=== PATIENT | female | born 1945 | race Caucasian/White ===

== ENCOUNTER 2020-04-22 16:28 | Outpatient (REF) | payer MEDICARE, SELFPAY ==
--- NOTE | 2020-04-22 | MM_ITS ---
EXAMINATION: MM SCREENING DIGITAL BREAST TOMOSYNTHESIS, BILATERAL CLINICAL INFORMATION: Screening. Asymptomatic. The lifetime risk of breast cancer based on the Tyrer-Cuzick Model is 2%. COMPARISON: Mammography: 08/01/2018, 07/26/2017, 07/11/2016 TECHNIQUE: Digital breast tomosynthesis is performed in both the craniocaudal and mediolateral oblique views along with computer-aided detection (CAD). Synthesized 2D images are generated from the tomosynthesis. FINDINGS: There are scattered areas of fibroglandular density (ACR BI-RADS breast composition Category b). Breast tissue composition borders on predominantly fatty. Background stromal densities are stable. There are no significant masses, abnormal calcifications, or other abnormalities. The axilla and skin contours are unremarkable. No significant changes. MM/MM tomosynthesis screening BI IMPRESSION: No mammographic evidence of malignancy. ASSESSMENT: BI-RADS 1: Negative RECOMMENDATION: Routine annual mammography screening. This patient's information was entered into a reminder system with a target due date for their next mammogram.
== END 2020-04-22 16:29 | disposition home or self-care (01) ==
LOC: HO.MAMMO 16:28
DX: Z12.31 Encounter for screening mammogram for malignant neoplasm of breast (principal)
CPT/HCPCS: 77063; 77067

== ENCOUNTER 2020-07-25 06:03 | Emergency (ER) | payer MEDICARE, SELFPAY ==
[2020-07-25 06:21] VITALS: BP 177/79; PULSE 94; RESP 15; TEMP 36.6; O2SAT 99; BMI 27.4
--- NOTE | 2020-07-25 06:36 | ED.GENADULT ---
HPI - General Adult General Chief complaint: General Medical Stated complaint: Arm pain Time Seen by Provider: 07/25/20 06:26 Source: patient Mode of arrival: ambulatory Limitations: no limitations History of Present Illness HPI narrative: pt comes to the ER c/o left arm pain that started 2 days ago. Patient denies injury. Patient states the pain starts in the shoulder blade, runs on the posterior aspect of the upper forearm, then goes to the anterior aspect to the dorsum of the hand, down to the 4th and 5th fingers. Patient denies loss in strength, denies chest pain, no shortness of breath. Related Data Previous Rx's Medication Instructions Recorded hydrochlorothiazide 25 mg tablet 25 mg PO DAILY #90 tab 07/21/20 cyclobenzaprine 10 mg PO TID PRN #14 tab 07/25/20 tramadol 50 mg PO BID PRN #7 tab 07/25/20 Allergies Allergy/AdvReac Type Severity Reaction Status Date / Time No Known Allergies Allergy Unverified 02/06/20 14:45 Review of Systems Review of Systems: Constitutional : No Weight loss, No Fever, No Chills, No Night Sweats, No Fatigue, No Malaise ENT/Mouth : No Hearing loss, No Ear Pain, No Nasal Congestion, No Sinus Pain, No Hoarseness, No sore throat, No Rhinorrhea, No Swallowing Difficulty Eyes: No Eye Pain, No Swelling, No Redness, No Foreign Body, No Discharge, No Vision Changes Cardiovascular : No Chest Pain, No SOB, No Dyspnea on Exertion, No Orthopnea, No Edema, No Palpitations Respiratory : No Cough, No Sputum, No Wheezing, No Smoke Exposure, No Dyspnea Gastrointestinal : No Nausea, No Vomiting, No Diarrhea, No Constipation, No abdominal Pain, No Hematochezia, No Melena Genitourinary : no irregular bleeding, No Dysuria, No Urinary Frequency, No Hematuria, No Urinary Incontinence, No Urgency, No Flank Pain, No Urinary Flow Changes, No Hesitancy Musculoskeletal : Complaining of left shoulder blade pain, radiating towards the left arm, down to the 4th and 5th fingers on the left side Skin : No Skin Lesions, No rash Neuro : No Weakness, No Numbness, No Paresthesias, No Loss of Consciousness, No Dizziness, No Headache Psych : No Anxiety/Panic, No Depression, No SI/HI/AH/VH, No Social Issues, Heme/Lymph: No Bruising, No Bleeding,No Lymphadenopathy Endocrine : No Polyuria, No Polydipsia, No Temperature Intolerance COUNT INCLUDES THE [facility] Past Medical History Surgical History Hip joint replacement by other means Social History Social History Alcohol intake: never Smoked in Last 30 Days: No Use of substances other than those prescribed or required for medical reasons: No Advance Directives: No Advance Directives Information Provided: No Physical Exam Vital Signs: Vital Signs: Last Vital Signs Temp 97.8 F 07/25/20 06:21 Pulse 94 07/25/20 06:21 Resp 15 07/25/20 06:21 BP 177/79 H 07/25/20 06:21 Pulse Ox 99 07/25/20 06:21 Body Mass Index 27.4 Appearance: Alert. Oriented X3. No acute distress. Eyes: Pupils equal, round and reactive to light. ENT: Pharynx normal. Neck: Normal inspection. Neck supple. No lymph nodes noted. No crepitus CVS: Normal heart rate and rhythm. Pulses normal. Normal S1 and S2 Respiratory: No respiratory distress. Breath sounds normal. No Wheezing. No rales Abdomen: Soft and nontender. No rigidity. No distention. good BS x4 Back: Pain to palpation over the medial aspect of the scapula, superior aspect. Patient has strength 5/5 in both arms, patient is able to flex and extend all fingers, the wrists , elbows and shoulders. Skin: Skin warm and dry. Normal skin color. Normal skin turgor. Extremities: No lower extremity edema. No lower extremity edema. No Lacerations. No Rash Neuro: Oriented X 3. No motor deficit. No sensory deficit. Moving all extermities. No slurred speech. Course Course Course Narrative: I discussed the labs with the patient, patient's source of paresthesias and discomfort is likely secondary to an ulnar nerve entrapment at the shoulder. Patient states that she might have injured her shoulder/back a few days ago while doing back exercises at home. Patient takes celecoxib at home, states that sometimes it is not enough for pain, discussed with the patient starting muscle relaxants and tramadol but to try to avoid using tramadol, patient will follow-up with her primary care physician, she will likely need physical therapy. Stroke is not suspected at this time Medical Decision Making Lab Data Result diagrams: 07/25/20 06:48 Labs: Lab Results 07/25/20 07/25/20 Range/Units 06:48 06:49 WBC 7.8 (4.8-10.8) X10*3/uL RBC 4.57 (4.20-5.50) X10*6/uL Hgb 13.9 (12.0-16.0) g/dl Hct 41.6 (37-47) % MCV 91.0 (80-98) fL MCH 30.4 (27.0-33.0) pg MCHC 33.4 (31.0-35.0) g/dl RDW 13.5 (11.0-16.0) % Plt Count 239 (160-400) X10*3/uL MPV 9.6 (9.4-12.3) fL Immature Gran % (Auto) 0.3 (0.0-0.4) % Neut % (Auto) 54.7 (45-73) % Lymph % (Auto) 28.1 (20-40) % [place] % (Auto) 12.6 H (2-11) % Eos % (Auto) 3.3 (0-4) % Baso % (Auto) 1.0 (0-2) % Lymph # (Auto) 2.2 (1.2-4.9) X10*3/uL [place] # (Auto) 1.0 (0.1-1.2) X10*3/uL Eos # (Auto) 0.3 (0.0-0.4) X10*3/uL Baso # (Auto) 0.1 (0.0-0.2) X10*3/uL Abs Immat Gran (auto) 0.02 (0.00-0.03) X10*3/uL Absolute Neuts (auto) 4.3 (2.0-8.3) X10*3/uL Absolute Nucleated RBC 0.000 (0.0-0.012) X10*3/uL Nucleated RBC % (auto) 0.0 (0.0-0.2) /100WBC Troponin I High Sens < 3.5 (<3.5-17.0) ng/L ECG Data Attestation: I personally reviewed and interpreted this ECG as follows: (Sinus rhythm, heart rate 84, QTC 453, less than 1 mm depression in leads V4 through V6) Discharge Plan Discharge Clinical Impression: Entrapment of left ulnar nerve Patient Disposition: Home, Self-Care Instructions: Paresthesia (ED) Additional Instructions: Please be aware that the muscle relaxant cyclobenzaprine and the pain medication tramadol can make you feel very sleepy. Avoid taking it before driving, please be aware that this medications may increase the risk of falls. Avoid taking these 2 medications together. If needed, try cyclobenzaprine first. Please follow-up with your primary care physician tomorrow. If you have any worsening or new symptoms, please return to the emergency room or call 911 Prescriptions: New cyclobenzaprine 10 mg tablet 10 mg PO TID PRN (Reason: muscle spasm) Qty: 14 RF: 0 tramadol 50 mg tablet 50 mg PO BID PRN (Reason: pain) Qty: 7 RF: 0 No Action hydrochlorothiazide 25 mg tablet 25 mg PO DAILY Qty: 90 RF: 1
--- NOTE | 2020-07-25 06:48 | PC.NURSE ---
Pt a&o, no sob or chest pain. pt complaining of middle back pain radiating to lateral left shoulder. ekg completed, pt placed on monitor sinus rhythm. labs being drawn and sent.
[2020-07-25 06:56] LABS: MANUAL DIFF FLAG NO
[2020-07-25 07:00] LABS: Basophils Absolute Auto 0.1 X10*3/uL (0.0-0.2); Eosinophils Absolute Auto 0.3 X10*3/uL (0.0-0.4); Eosinophils Percent Auto 3.3 % (0-4); Hematocrit 41.6 % (37-47); Hemoglobin 13.9 g/dl (12.0-16.0); Imm Gran Abs Auto 0.02 X10*3/uL (0.00-0.03); Imm Gran Pct Auto 0.3 % (0.0-0.4); Lymphocytes Absolute Auto 2.2 X10*3/uL (1.2-4.9); Lymphocytes Percent Auto 28.1 % (20-40); Mean Corpuscular HGB Conc 33.4 g/dl (31.0-35.0); Mean Corpuscular Hemoglobin 30.4 pg (27.0-33.0); Mean Platelet Volume 9.6 fL (9.4-12.3); Monocytes Percent Auto 12.6 % (2-11); Neutrophils Absolute Auto 4.3 X10*3/uL (2.0-8.3); Neutrophils Percent Auto 54.7 % (45-73); Platelet Count 239 X10*3/uL (160-400); Red Blood Count 4.57 X10*6/uL (4.20-5.50); Red Cell Distribution Width 13.5 % (11.0-16.0); White Blood Count 7.8 X10*3/uL (4.8-10.8)
[2020-07-25 07:23] LABS: Troponin-I High Sensitivity < 3.5 ng/L (<3.5-17.0)
[2020-07-25 08:05] LABS: Anion Gap 12 (12-20); Blood Urea Nitrogen 14 mg/dL (9-16); Calcium 9.4 mg/dL (8.4-10.2); Carbon Dioxide 29 mmol/L (22-29); Chloride 99 mmol/L (96-108); Creatinine Clr Calc Pharmacy 65.7; Estimated Glomerular Filt Rate > 60; Glucose Random 105 mg/dL (60-115); Potassium 3.9 mmol/L (3.3-5.1); Sodium 136 mmol/L (135-145)
--- NOTE | 2020-07-25 08:05 | ECG_ITS ---
Test Reason : CHEST PAIN Blood Pressure : / mmHG Vent. Rate : 084 BPM Atrial Rate : 084 BPM P-R Int : 158 ms QRS Dur : 088 ms QT Int : 384 ms P-R-T Axes : 075 058 050 degrees QTc Int : 453 ms Normal sinus rhythm Cannot rule out Anterior infarct , age undetermined Nonspecific ST and T wave abnormality Abnormal ECG When compared with ECG of 28-MAY-2014 06:05, No significant change was found Referred By: Magnolia Berg Electronically Signed By:GOPI WARNER
[2020-07-25 08:15] VITALS: BP 159/70; PULSE 75; RESP 16; O2SAT 97
== END 2020-07-25 08:16 | disposition home or self-care (01) ==
LOC: HO.ED 07:04
PROVIDERS: Emergency Provider Emergency Medicine; PCP Internal Medicine
DX: G56.22 Lesion of ulnar nerve, left upper limb (principal); M79.602 Pain in left arm
CPT/HCPCS: 36415; 80048; 84484; 85025; 93005; 99283; 99284

== ENCOUNTER 2020-08-11 14:54 | Outpatient (REF) | payer MEDICARE, SELFPAY ==
--- NOTE | ~2020-08-11 | XR_ITS ---
EXAMINATION: XR CHEST CLINICAL INFORMATION: Coronary artery disease COMPARISON: Previous chest x-ray May 2014 TECHNIQUE: 2 views of the chest were obtained. FINDINGS: The cardiac and mediastinal contours are normal. The lungs are clear. There is no pleural effusion or pneumothorax. There is curvature of the thoracic spine to the right and degenerative change. XR/XR chest 2V IMPRESSION: No evidence for acute disease in the chest.
== END 2020-08-11 14:55 | disposition home or self-care (01) ==
LOC: HO.XRAY 14:54
PROVIDERS: PCP Internal Medicine; Visit Provider Internal Medicine
DX: I25.10 Atherosclerotic heart disease of native coronary artery without angina pectoris (principal)
CPT/HCPCS: 71046

== ENCOUNTER 2020-10-08 09:35 | Outpatient (REF) | payer MEDICARE, SELFPAY ==
--- NOTE | 2020-10-08 09:40 | EMG_ITS ---
Left median and ulnar motor and sensory studies were performed. Left radial sensory study was performed and paraspinal muscles were tested. Limb muscles were also tested with a needle. IMPRESSION: 1. No evidence of significant ulnar neuropathy. 2. Chronic left mid to lower cervical radiculopathy. 3. Mild to moderate left median neuropathy across carpal tunnel. MD ROMMEL Grey/RONALDL / [id number]
== END 2020-10-08 09:36 | disposition home or self-care (01) ==
LOC: HO.NEURO 09:35
PROVIDERS: Visit Provider Internal Medicine
DX: G56.22 Lesion of ulnar nerve, left upper limb (principal)
CPT/HCPCS: 95886; 95909

== ENCOUNTER 2020-10-24 07:42 | Outpatient (REF) | payer MEDICARE, SELFPAY ==
[2020-10-24 08:21] LABS: MANUAL DIFF FLAG NO
[2020-10-24 08:47] LABS: Glucose Urine UA NEG (NEG); Leukocyte Esterase Urine NEG (NEG); Nitrite Urine NEG (NEG); PH 7.5 (5.0-8.0); Specific Gravity - Urine 1.015 (1.005-1.025); Urine Blood NEG (NEG); Urine Ketones NEG (NEG); Urine Protein NEG (NEG-TRACE)
[2020-10-24 08:51] LABS: Alanine Aminotransferase 18 U/L (0-31); Albumin Level 4.3 g/dL (3.5-5.0); Alkaline Phosphatase 47 U/L (39-117); Anion Gap 13 (12-20); Aspartate Amino Transferase 22 U/L (5-31); Bilirubin Total 0.9 mg/dL (0.0-1.0); Blood Urea Nitrogen 16 mg/dL (9-16); Calcium 9.8 mg/dL (8.4-10.2); Carbon Dioxide 30 mmol/L (22-29); Chloride 102 mmol/L (96-108); Cholesterol 202 mg/dL; Estimated Glomerular Filt Rate > 60; Glucose Random 102 mg/dL (60-115); HDL Cholesterol 96 mg/dL; LDL Cholesterol Calculated 99 mg/dl; Potassium 4.2 mmol/L (3.3-5.1); Sodium 141 mmol/L (135-145); Total Protein 6.6 g/dL (6.5-8.0); Triglycerides 39 mg/dL
[2020-10-24 08:52] LABS: Basophils Absolute Auto 0.1 X10*3/uL (0.0-0.2); Eosinophils Absolute Auto 0.3 X10*3/uL (0.0-0.4); Eosinophils Percent Auto 3.6 % (0-4); Hematocrit 41.5 % (37-47); Hemoglobin 13.3 g/dl (12.0-16.0); Imm Gran Abs Auto 0.02 X10*3/uL (0.00-0.03); Imm Gran Pct Auto 0.3 % (0.0-0.4); Lymphocytes Percent Auto 28.3 % (20-40); Mean Corpuscular Hemoglobin 30.3 pg (27.0-33.0); Mean Corpuscular Volume 94.5 fL (80-98); Mean Platelet Volume 10.3 fL (9.4-12.3); Monocytes Absolute Auto 0.9 X10*3/uL (0.1-1.2); Monocytes Percent Auto 13.1 % (2-11); Neutrophils Absolute Auto 3.7 X10*3/uL (2.0-8.3); Neutrophils Percent Auto 53.7 % (45-73); Platelet Count 210 X10*3/uL (160-400); Red Blood Count 4.39 X10*6/uL (4.20-5.50); Red Cell Distribution Width 13.8 % (11.0-16.0)
[2020-10-24 08:54] LABS: Appearance Urine CLEAR; Color Urine YELLOW
[2020-10-24 09:03] LABS: RBC Urine 0 /HPF (0); Squamous Epithelial Cell Urine TRACE /LPF; WBC Urine 0-2 /HPF (0-4)
[2020-10-24 09:09] LABS: Thyroid Stimulating Hormone 1.16 uIU/mL (0.32-4.0); Vitamin D 25-OH Total 51.1 ng/mL (>30)
[2020-10-26 08:29] LABS: Folate 16.4 ng/mL (> or = 4.0); Vitamin B12 281 pg/mL (200-900)
== END 2020-10-24 07:43 | disposition home or self-care (01) ==
LOC: HO.LAB 07:42
PROVIDERS: PCP Internal Medicine; Visit Provider Internal Medicine
DX: I10 Essential (primary) hypertension (principal); E78.00 Pure hypercholesterolemia, unspecified
CPT/HCPCS: 36415; 80053; 80061; 81001; 82306; 82607; 82746; 84439; 84443; 85025

== ENCOUNTER 2020-11-20 12:39 | Outpatient (REF) | payer MEDICARE, SELFPAY ==
--- NOTE | ~2020-11-20 | MR_ITS ---
EXAMINATION: MR CERVICAL SPINE WITHOUT CONTRAST CLINICAL INFORMATION: Neuralgia and neuritis. Self-identified left finger numbness and weakness. Partial lower arm numbness. COMPARISON: Cervical spine radiograph 04/18/2016 TECHNIQUE: MRI of the cervical spine was obtained using routine sequences without contrast. FINDINGS: VERTEBRAL BODIES AND PARASPINAL SOFT TISSUES: Straightening of the normal cervical lordosis is noted. 2 mm degenerative type anterolisthesis of C3 on C4 is visualized along with minimal 1-2 mm degenerative retrolisthesis of C5 on C6. No vertebral body compression deformities are identified. Moderate multilevel endplate discogenic marrow signal changes are noted along with mild anterior endplate osteophytosis at C4-C5, C5-C6 and C6-C7. CERVICOMEDULLARY JUNCTION AND VISUALIZED POSTERIOR FOSSA: Normal. SPINAL LEVELS: C2-C3: Minimal central disc-osteophyte complex. No significant central or foraminal stenoses. C3-C4: Mild central stenosis. Mild bilateral foraminal stenoses. Findings are present in the setting of a mild posterior broad-based disc-osteophyte complex with slight focal prominence of the right uncovertebral joint disc-osteophyte component. C4-C5: Moderate bilateral foraminal stenoses. Mild central stenosis. Findings are present in the setting of a moderate posterior broad-based disc-osteophyte complex resulting in 50% bilateral foraminal narrowing. C5-C6: Marked bilateral foraminal stenoses. Moderate central stenosis. Findings are present in the setting of a moderate posterior broad-based disc-osteophyte complex with moderate-marked bilateral uncovertebral joint incorporation with 75% bilateral foraminal narrowing and partial effacement of the ventral thecal sac CSF space. No focal signal abnormality in the adjacent spinal cord. C6-C7: Moderate left foraminal stenosis. Mild-moderate right foraminal stenosis. Moderate central stenosis. Findings are present in the setting of a moderate posterior broad-based disc-osteophyte complex. Approximately 50% left foraminal narrowing is noted along with partial effacement of the ventral thecal sac CSF space. No adjacent spinal cord signal abnormality. C7-T1: Marked left facet hypertrophic changes. Mild central stenosis. Central stenosis is present on the basis of mild posterior broad-based disc-osteophyte complex. MR/MR cervical spine wo con IMPRESSION: 1. Advanced multilevel chronic spondylosis of the cervical spine. 2. C5-C6 marked bilateral foraminal stenoses with bilateral C6 nerve root impingement. 3. C6-C7 moderate left foraminal stenosis with possible left C7 nerve root impingement. 4. C4-C5 moderate bilateral foraminal stenoses with possible mild bilateral C5 nerve root impingement.
== END 2020-11-20 12:40 | disposition home or self-care (01) ==
LOC: HO.MRI 12:39
PROVIDERS: PCP Internal Medicine; Visit Provider Internal Medicine
DX: M79.2 Neuralgia and neuritis, unspecified (principal)
CPT/HCPCS: 72141

== ENCOUNTER 2021-05-26 10:56 | Outpatient (REF) | payer MEDICARE, SELFPAY ==
--- NOTE | ~2021-05-26 | MM_ITS ---
EXAMINATION: MM SCREENING DIGITAL BREAST TOMOSYNTHESIS, BILATERAL CLINICAL INFORMATION: Screening. Asymptomatic. The lifetime risk of breast cancer based on the Tyrer-Cuzick Model is 2%. COMPARISON: Mammography: 05/10/2020, 08/01/2018, 07/26/2017 TECHNIQUE: Digital breast tomosynthesis is performed in both the craniocaudal and mediolateral oblique views along with computer-aided detection (CAD). Synthesized 2D images are generated from the tomosynthesis. FINDINGS: There are scattered areas of fibroglandular density (ACR BI-RADS breast composition Category b). There are no significant masses, abnormal calcifications, or other abnormalities. Breast tissue composition borders on predominantly fatty. Background stromal densities are stable. No significant changes. MM/MM tomosynthesis screening BI IMPRESSION: No mammographic evidence of malignancy. ASSESSMENT: BI-RADS 1: Negative RECOMMENDATION: Routine annual mammography screening. This patient's information was entered into a reminder system with a target due date for their next mammogram.
== END 2021-05-26 10:57 | disposition home or self-care (01) ==
LOC: HO.MAMMO 10:56
PROVIDERS: Visit Provider Internal Medicine
DX: Z12.31 Encounter for screening mammogram for malignant neoplasm of breast (principal)
CPT/HCPCS: 77063; 77067

== ENCOUNTER 2021-07-19 07:05 | Outpatient (REF) | payer MEDICARE, SELFPAY ==
[2021-07-19 07:44] LABS: Estimated Average Glucose 117 mg/dL; Hemoglobin A1c % 5.7 %
[2021-07-19 08:03] LABS: Alanine Aminotransferase 14 U/L (0-31); Albumin Level 4.3 g/dL (3.5-5.0); Alkaline Phosphatase 59 U/L (39-117); Anion Gap 10 (12-20); Aspartate Amino Transferase 19 U/L (5-31); Bilirubin Total 0.8 mg/dL (0.0-1.0); Blood Urea Nitrogen 16 mg/dL (9-16); Calcium 10.1 mg/dL (8.4-10.2); Carbon Dioxide 32 mmol/L (22-29); Chloride 102 mmol/L (96-108); Cholesterol 185 mg/dL; Estimated Glomerular Filt Rate > 60; Glucose Random 106 mg/dL (60-115); HDL Cholesterol 85 mg/dL; LDL Cholesterol Calculated 93 mg/dl; Potassium 4.2 mmol/L (3.3-5.1); Sodium 140 mmol/L (135-145); Total Protein 6.7 g/dL (6.5-8.0); Triglycerides 37 mg/dL
== END 2021-07-19 07:06 | disposition home or self-care (01) ==
LOC: HO.LAB 07:05
PROVIDERS: PCP Internal Medicine; Visit Provider Internal Medicine
DX: E78.00 Pure hypercholesterolemia, unspecified (principal); R73.01 Impaired fasting glucose
CPT/HCPCS: 36415; 80053; 80061; 83036

== ENCOUNTER → 2021-07-22 14:51 | Outpatient (BNVA) | payer MEDICARE, SELFPAY | PROVIDERS: PCP Internal Medicine; Referring Provider Internal Medicine; Visit Provider Internal Medicine Cardiovascular Disease | DX: I25.119 Atherosclerotic heart disease of native coronary artery with unspecified angina pectoris (principal); I10 Essential (primary) hypertension; R07.1 Chest pain on breathing; E78.00 Pure hypercholesterolemia, unspecified; E78.5 Hyperlipidemia, unspecified; E66.3 Overweight; Z68.27 Body mass index [BMI] 27.0-27.9, adult; Z79.899 Other long term (current) drug therapy | CPT/HCPCS: 93005; 99202 ==

== ENCOUNTER → 2021-09-02 14:54 | Outpatient (REF) | payer MEDICARE, SELFPAY ==
--- NOTE | 2021-09-02 14:57 | CA_ITS ---
Transthoracic Echocardiogram Patient (Last, First, Middle): Verona Guthrie S Gender: Female Date of : 1945 Age: 76 Procedure Date: 09/02/2021 Procedure Type: Transthoracic Echocardiogram Location: OP Height: 162.56 cm Weight: 71.22 kg BSA: 1.76 m2 Heart Rate: bpm BP: 130 / 70 mmHg News Specialist: FIDENCIO Referring MD: Bolivar Chapman MD Carton Repairer: Bolivar Chapman MD Symptoms: I10 - Essential (primary) hypertension Study Quality: Fair ECG Rhythm: Sinus Conclusions: - 1. Normal LV systolic function with impaired relaxation filling pattern 2. Trivial aortic regurgitation 3. Normal RV systolic pressure 4. No pericardial effusion Findings Left Ventricle Normal left ventricular size, thickness, and systolic function. The visually estimated ejection fraction is between 60-65%. Spectral Doppler is indicative of an impaired relaxation filling pattern. E/E prime ratio is between 8 and 15 consistent with indeterminate filling pressures. Right Ventricle Normal right ventricular cavity size and systolic function. Atria Both atria are normal in size. There is no evidence of interatrial shunt. Aortic Valve The aortic valve structure and function is likely normal. There is no aortic valve stenosis. There is trace (trivial) aortic valve regurgitation. Mitral Valve Normal mitral valve structure and function. There is trace mitral valve regurgitation. There is no mitral valve stenosis. Pulmonic Valve The pulmonic valve was not well visualized. Tricuspid Valve Likely normal tricuspid valve structure and function. There is trace tricuspid valve regurgitation. The right ventricular systolic pressure is normal. The right ventricular systolic pressure is 9 mmHg. Normal right atrial pressure. Great Vessels All visible segments of the aorta are normal in size. The pulmonary artery was not well visualized. Venous The inferior vena cava is normal in size and collapses greater than 50% with inspiration. Pericardium/Pleural There is no evidence of pericardial effusion. Prior Study Comparison No prior study available for comparison. Measurements 2D Linear Measurements IVSd: 0.92 0.6-0.9/0.6-1.0 cm LVIDd: 3.97 3.9-5.3/4.2-5.9 cm LVIDd Index: 2.26 2.4-3.2/2.2-3.1 cm/m2 LVIDs: 2.96 2.0-3.6 cm LVPWd: 0.93 0.7-1.1 cm LA Diam: 2.80 2.7-3.8/3.0-4.0 cm LAIDs Index: 1.59 1.5-2.3 cm/m2 LV Mass: 139.53 67-162/88-224 g LV Mass Index: 79.28 43-95/49-115 g/m2 LVOT Diam: 2.00 3.0+(-)1.3 cm 2D Systolic Function EF 4C: 67.10 >55% EF 2C: 55.50 >55% EF BiP: 63.70 >55% Mitral Valve MV Pk E: 0.70 MV PK A: 0.82 MV Decel Time: 218.00 E/A: 0.90 E'Lateral: 11.40 E'Medial: 8.38 E/E' Med: 8.40 E/E' Lat: 6.20 PHT: 64.00 MVA PHT: 3.44 Decel [place]: 3.23 Aortic Valve AoV Pk Rogelio: 1.59 AoV Mn Rogelio: 1.00 AoV VTI: 0.33 AoV Pk Grad: 10.00 Aov Mn Grad: 5.00 KRISTAN Cont.VTI: 2.08 LVOT LVOT Pk Rogelio: 0.95 LVOT Mn Rogelio: 0.65 LVOT VTI: 0.22 LVOT Pk Grad: 4.00 LVOT Mn Grad: 2.00 LVOT Diam: 2.00 LVOT Area: 3.14 Diastolic Function MV Pk E: 0.70 MV Pk A: 0.82 E/A: 0.90 E'Medial: 8.38 E/E' Med: 8.40 E' Laterial: 11.40 E/E' Lat: 6.20 Right Ventricle TAPSE (mm): 26.00 TVS' Rogelio: 13.40 Tricuspid Valve TR Pk Rogelio: 1.18 TR Pk Grad: 6.00 RA Press: 3.00 RVSP: 9.00 Great Vessels Aorta Sinus of Valsalva: 3.15 2.0-3.[address] [place]: 3.05 1.7-3.4 cm Ao Asc: 2.80 2.1-3.4 cm Ao Arch: 3.20 Updated in Other Vendor System with Status of Final Bolivar Chapman MD electronically signed on 09/03/2021 8:29:09 AM with status of Final
== END ==
LOC: HO.CARD 14:54
PROVIDERS: Visit Provider Internal Medicine Cardiovascular Disease
DX: I10 Essential (primary) hypertension (principal)
CPT/HCPCS: 93306

== ENCOUNTER 2021-09-22 08:18 | Outpatient (REF) | payer MEDICARE, SELFPAY ==
[2021-09-22 09:29] LABS: Anion Gap 12 (12-20); Blood Urea Nitrogen 15 mg/dL (9-16); Calcium 10.1 mg/dL (8.4-10.2); Carbon Dioxide 31 mmol/L (22-29); Chloride 101 mmol/L (96-108); Estimated Glomerular Filt Rate > 60; Glucose Random 102 mg/dL (60-115); Sodium 140 mmol/L (135-145)
== END 2021-09-22 08:19 | disposition home or self-care (01) ==
LOC: HO.LAB 08:18
PROVIDERS: PCP Internal Medicine; Visit Provider Internal Medicine Cardiovascular Disease
DX: I10 Essential (primary) hypertension (principal); I25.119 Atherosclerotic heart disease of native coronary artery with unspecified angina pectoris
CPT/HCPCS: 36415; 80048

== ENCOUNTER → 2021-10-14 14:40 | Outpatient (BNVA) | payer MEDICARE, SELFPAY | PROVIDERS: PCP Internal Medicine; Referring Provider Internal Medicine; Visit Provider Internal Medicine Cardiovascular Disease | DX: I25.10 Atherosclerotic heart disease of native coronary artery without angina pectoris (principal); Z79.82 Long term (current) use of aspirin; Z79.899 Other long term (current) drug therapy | CPT/HCPCS: 99212 ==

== ENCOUNTER 2022-03-18 07:24 | Outpatient (REF) | payer MEDICARE, SELFPAY ==
[2022-03-18 07:43] LABS: MANUAL DIFF FLAG NO
[2022-03-18 08:20] LABS: Basophils Absolute Auto 0.1 X10*3/uL (0.0-0.2); Basophils Percent Auto 1.1 % (0-2); Eosinophils Absolute Auto 0.2 X10*3/uL (0.0-0.4); Eosinophils Percent Auto 2.6 % (0-4); Hematocrit 42.5 % (37.0-47.0); Hemoglobin 13.9 g/dl (12.0-16.0); Imm Gran Abs Auto 0.02 X10*3/uL (0.00-0.03); Imm Gran Pct Auto 0.2 % (0.0-0.4); Lymphocytes Absolute Auto 1.5 X10*3/uL (1.2-4.9); Lymphocytes Percent Auto 17.1 % (20-40); Mean Corpuscular HGB Conc 32.7 g/dl (31.0-35.0); Mean Corpuscular Hemoglobin 30.2 pg (27.0-33.0); Mean Corpuscular Volume 92.2 fL (80.0-98.0); Mean Platelet Volume 10.2 fL (9.4-12.3); Monocytes Absolute Auto 0.9 X10*3/uL (0.1-1.2); Neutrophils Absolute Auto 5.8 x10*3/uL (2.0-8.3); Platelet Count 219 X10*3/uL (160-400); Red Blood Count 4.61 X10*6/uL (4.20-5.50); Red Cell Distribution Width 13.7 % (11.0-16.0); White Blood Count 8.6 X10*3/uL (4.8-10.8)
[2022-03-18 08:29] LABS: Estimated Average Glucose 117 mg/dL; Hemoglobin A1c % 5.7 %
[2022-03-18 08:57] LABS: Alanine Aminotransferase 15 U/L (0-31); Albumin Level 4.4 g/dL (3.5-5.0); Alkaline Phosphatase 54 U/L (39-117); Anion Gap 16 (12-20); Aspartate Amino Transferase 21 U/L (5-31); Bilirubin Total 0.5 mg/dL (0.0-1.0); Blood Urea Nitrogen 19 mg/dL (9-16); Calcium 9.8 mg/dL (8.4-10.2); Carbon Dioxide 29 mmol/L (22-29); Chloride 98 mmol/L (96-108); Cholesterol 175 mg/dL; Estimated Glomerular Filt Rate > 60; Glucose Random 96 mg/dL (60-115); HDL Cholesterol 80 mg/dL; LDL Cholesterol Calculated 90 mg/dl; Sodium 139 mmol/L (135-145); Total Protein 6.7 g/dL (6.5-8.0); Triglycerides 29 mg/dL
[2022-03-18 09:07] LABS: Free T4 (Free Thyroxine) 1.06 ng/dL (0.71-1.85)
[2022-03-18 09:29] LABS: Folate 13.5 ng/mL (> or = 4.0); Vitamin B12 > 2000 pg/mL (200-900)
== END 2022-03-18 07:25 | disposition home or self-care (01) ==
LOC: HO.LAB 07:24
PROVIDERS: PCP Internal Medicine; Visit Provider Internal Medicine
DX: R73.01 Impaired fasting glucose (principal); E78.00 Pure hypercholesterolemia, unspecified
CPT/HCPCS: 36415; 80053; 80061; 82607; 82746; 83036; 84439; 84443; 85025

== ENCOUNTER → 2022-04-12 13:47 | Outpatient (BNVA) | payer MEDICARE, SELFPAY | PROVIDERS: PCP Internal Medicine; Referring Provider Internal Medicine; Visit Provider Internal Medicine Cardiovascular Disease | DX: I25.10 Atherosclerotic heart disease of native coronary artery without angina pectoris (principal) | CPT/HCPCS: 99212 ==

== ENCOUNTER 2022-06-07 08:29 | Outpatient (REF) | payer MEDICARE, SELFPAY ==
[2022-06-07 08:41] LABS: MANUAL DIFF FLAG NO
[2022-06-07 08:57] LABS: Basophils Absolute Auto 0.1 X10*3/uL (0.0-0.2); Basophils Percent Auto 1.2 % (0-2); Eosinophils Absolute Auto 0.3 X10*3/uL (0.0-0.4); Eosinophils Percent Auto 3.8 % (0-4); Hematocrit 41.7 % (37.0-47.0); Hemoglobin 13.8 g/dl (12.0-16.0); Imm Gran Abs Auto 0.02 X10*3/uL (0.00-0.03); Imm Gran Pct Auto 0.3 % (0.0-0.4); Lymphocytes Absolute Auto 2.3 X10*3/uL (1.2-4.9); Lymphocytes Percent Auto 29.7 % (20-40); Mean Corpuscular HGB Conc 33.1 g/dl (31.0-35.0); Mean Corpuscular Hemoglobin 30.3 pg (27.0-33.0); Mean Corpuscular Volume 91.4 fL (80.0-98.0); Mean Platelet Volume 9.7 fL (9.4-12.3); Monocytes Absolute Auto 0.9 X10*3/uL (0.1-1.2); Monocytes Percent Auto 12.1 % (2-11); Neutrophils Absolute Auto 4.1 x10*3/uL (2.0-8.3); Neutrophils Percent Auto 52.9 % (45-73); Platelet Count 237 X10*3/uL (160-400); Red Blood Count 4.56 X10*6/uL (4.20-5.50); Red Cell Distribution Width 13.6 % (11.0-16.0); White Blood Count 7.7 X10*3/uL (4.8-10.8)
[2022-06-07 09:23] LABS: Estimated Average Glucose 117 mg/dL; Hemoglobin A1c % 5.7 %
[2022-06-07 09:44] LABS: Alanine Aminotransferase 23 U/L (0-31); Albumin Level 4.3 g/dL (3.5-5.0); Alkaline Phosphatase 55 U/L (39-117); Anion Gap 11 (12-20); Aspartate Amino Transferase 26 U/L (5-31); Bilirubin Total 0.7 mg/dL (0.0-1.0); Blood Urea Nitrogen 18 mg/dL (9-16); Calcium 9.8 mg/dL (8.4-10.2); Carbon Dioxide 31 mmol/L (22-29); Chloride 99 mmol/L (96-108); Cholesterol 156 mg/dL; Estimated Glomerular Filt Rate > 60; Glucose Random 100 mg/dL (60-115); HDL Cholesterol 82 mg/dL; LDL Cholesterol Calculated 70 mg/dl; Sodium 137 mmol/L (135-145); Total Protein 6.6 g/dL (6.5-8.0); Triglycerides 24 mg/dL
[2022-06-07 10:00] LABS: Free T4 (Free Thyroxine) 1.06 ng/dL (0.71-1.85); Thyroid Stimulating Hormone 1.55 uIU/mL (0.32-4.0)
== END 2022-06-07 08:30 | disposition home or self-care (01) ==
LOC: HO.LAB 08:29
PROVIDERS: PCP Internal Medicine; Visit Provider Internal Medicine
DX: E78.00 Pure hypercholesterolemia, unspecified (principal); R73.01 Impaired fasting glucose
CPT/HCPCS: 36415; 80053; 80061; 83036; 84439; 84443; 85025

== ENCOUNTER 2022-06-09 09:40 | Outpatient (REF) | payer MEDICARE, SELFPAY ==
--- NOTE | ~2022-06-09 | MM_ITS ---
EXAMINATION: MM SCREENING DIGITAL BREAST TOMOSYNTHESIS, BILATERAL CLINICAL INFORMATION: Screening. Asymptomatic. The lifetime risk of breast cancer based on the Tyrer-Cuzick Model is 1.5%. COMPARISON: Mammography: May 26, 2021 and studies dating back to June 08, 2015 TECHNIQUE: Digital breast tomosynthesis is performed in both the craniocaudal and mediolateral oblique views along with computer-aided detection (CAD). Synthesized 2D images are generated from the tomosynthesis. FINDINGS: There are scattered areas of fibroglandular density (ACR BI-RADS breast composition Category b). There are no significant masses, abnormal calcifications, or other abnormalities. MM/MM tomosynthesis screening BI IMPRESSION: No significant changes from prior exam. ASSESSMENT: BI-RADS 1: Negative RECOMMENDATION: Routine annual mammography screening. This patient's information was entered into a reminder system with a target due date for their next mammogram.
== END 2022-06-09 09:41 | disposition home or self-care (01) ==
LOC: HO.MAMMO 09:40
PROVIDERS: PCP Internal Medicine; Visit Provider Internal Medicine
DX: Z12.31 Encounter for screening mammogram for malignant neoplasm of breast (principal)
CPT/HCPCS: 77063; 77067

== ENCOUNTER 2023-01-12 06:41 | Outpatient (REF) | payer MEDICARE, SELFPAY ==
[2023-01-12 06:56] LABS: MANUAL DIFF FLAG NO
[2023-01-12 07:33] LABS: Basophils Absolute Auto 0.1 X10*3/uL (0.0-0.2); Basophils Percent Auto 1.8 % (0-2); Eosinophils Absolute Auto 0.3 X10*3/uL (0.0-0.4); Eosinophils Percent Auto 4.3 % (0-4); Hematocrit 42.1 % (37.0-47.0); Hemoglobin 13.5 g/dl (12.0-16.0); Imm Gran Abs Auto 0.01 X10*3/uL (0.00-0.03); Imm Gran Pct Auto 0.1 % (0.0-0.4); Lymphocytes Absolute Auto 2.5 X10*3/uL (1.2-4.9); Lymphocytes Percent Auto 34.6 % (20-40); Mean Corpuscular HGB Conc 32.1 g/dl (31.0-35.0); Mean Corpuscular Hemoglobin 29.9 pg (27.0-33.0); Mean Corpuscular Volume 93.1 fL (80.0-98.0); Mean Platelet Volume 10.3 fL (9.4-12.3); Monocytes Absolute Auto 0.9 X10*3/uL (0.1-1.2); Neutrophils Absolute Auto 3.3 x10*3/uL (2.0-8.3); Neutrophils Percent Auto 46.2 % (45-73); Platelet Count 181 X10*3/uL (160-400); Red Blood Count 4.52 X10*6/uL (4.20-5.50); Red Cell Distribution Width 13.4 % (11.0-16.0); White Blood Count 7.2 X10*3/uL (4.8-10.8)
[2023-01-12 07:46] LABS: Estimated Average Glucose 111 mg/dL; Hemoglobin A1c % 5.5 % (<6.0)
[2023-01-12 07:55] LABS: Alanine Aminotransferase 22 U/L (0-31); Albumin Level 4.2 g/dL (3.5-5.0); Alkaline Phosphatase 54 U/L (39-117); Anion Gap 11 (12-20); Aspartate Amino Transferase 28 U/L (5-31); Bilirubin Total 0.5 mg/dL (0.0-1.0); Blood Urea Nitrogen 20 mg/dL (9-16); Calcium 9.9 mg/dL (8.4-10.2); Carbon Dioxide 30 mmol/L (22-29); Chloride 103 mmol/L (96-108); Cholesterol 149 mg/dL (<200); Estimated Glomerular Filt Rate > 60; Glucose Random 99 mg/dL (60-115); HDL Cholesterol 77 mg/dL (>40); LDL Cholesterol Calculated 67 mg/dL (<100); Potassium 4.2 mmol/L (3.3-5.1); Sodium 140 mmol/L (135-145); Total Protein 6.7 g/dL (6.5-8.0); Triglycerides 27 mg/dL (<150)
[2023-01-12 08:01] LABS: Free T4 (Free Thyroxine) 0.93 ng/dL (0.71-1.85)
== END 2023-01-12 06:42 | disposition home or self-care (01) ==
LOC: HO.LAB 06:41
PROVIDERS: PCP Internal Medicine; Visit Provider Internal Medicine
DX: E78.00 Pure hypercholesterolemia, unspecified (principal); R73.02 Impaired glucose tolerance (oral)
CPT/HCPCS: 36415; 80053; 80061; 83036; 84439; 85025

== ENCOUNTER 2023-01-16 09:32 | Outpatient (AMB) | payer MEDICARE, SELFPAY ==
[2023-01-16 09:34] VITALS: BP 136/72; PULSE 78; O2SAT 97; BMI 23.3
--- NOTE | 2023-01-16 09:34 | MHC.PC.OV ---
Vital Signs 01/16/23 09:34 Height 5 ft 4 in Weight 136 lb BMI 23.3 BP 136/72 Blood Pressure Location Lt brachial Position Sitting Pulse 78 Pulse Source Pulse Oximeter Pulse Oximetry (%) 97 Oxygen Delivery Method Room Air Intake Visit Reasons: cad Allergies No Known Allergies Allergy (Verified 01/16/23 09:35) Tobacco use date assessed: 07/08/22 Fall risk assessment: No Falls in past year Last assessed Fall Risk: 01/16/23 Dental Screening Dental Screen Date: 01/16/23 Did you have a dental visit in the last 12 months?: Yes Did you have a dental problem in the last 6 months where you did not have access to dental care?: No Was dental information given to patient?: Patient has dentist HPI cad HPI Details 77-year-old female with a history of hypercholesterolemia coronary artery disease hypertension impaired glucose tolerance insomnia last seen in June 2022. Blood work was requested. Patient is up-to-date with mammogram [facility] Medical History (Updated 07/08/22 @ 11:42 by May Santana MD) Angina pectoris COPD (chronic obstructive pulmonary disease) Coronary artery disease Hypercholesterolemia Hypertension Osteoarthritis of left knee Osteoporosis Overweight (BMI 25.0-29.9) Surgical History History of bilateral hip replacements History of carpal tunnel release of both wrists History of laparoscopic cholecystectomy Hx of tonsillectomy Family History (Updated 01/16/23 @ 09:37 by Krystal Santoyo CMA) Father Pancreatic cancer Mother CHF (congestive heart failure) Brother No problems noted. Daughter No problems noted. Daughter No problems noted. Social History Housing: House Alcohol intake: current Patient Tobacco Use Status: Never used Tobacco e-Cigarette/Vaping Use: Never Used Second Hand Smoke Exposure: No service: No Current occupational status: employed Current occupational exposures/hazards: No Cognitive needs: No Hearing needs: No Vision needs: Yes (reading glasses) Questionnaire PHQ-9 Over the last 2 weeks, how often have you been bothered by any of the following problems? 1. Little interest or pleasure in doing things: not at all 2. Feeling down, depressed, or hopeless: not at all 3. Trouble falling or staying asleep, or sleeping too much: not at all 4. Feeling tired or having little energy: not at all 5. Poor appetite or overeating: not at all 6. Feeling bad about yourself - or that you are a failure or have let yourself or your family down: not at all 7. Trouble concentrating on things, such as reading the newspaper or watching television: not at all 8. Moving or speaking so slowly that other people could have noticed. Or the opposite - being so fidgety or restless that you have been moving around a lot more than usual: not at all 9. Thoughts that you would be better off or of hurting yourself in some way: not at all Total score: 0 Depression Screening Interpretation: Negative Source: Developed by Drs. Jarrett Horton, Tiana Allen, Barrera Dewey and colleagues, with an educational maxwell from [employer]. Thrive Questionnaire Date Thrive assessed: 07/08/22 AUDIT C Alcohol Use Questionnaire (AUDIT-C) 1. How often do you have a drink containing alcohol?: Monthly or less 2. How many drinks containing alcohol do you have on a typical day when you are drinking?: 1 or 2 3. How often do you have six or more drinks on one occasion?: Never Total Score: 1 CHITO-7 AMB Questionnaire CHITO-7 Date CHITO - 7 assessed: 07/08/22 Source: Developed by Drs. Jarrett Horton, Tiana Allen, Barrera Dewey and colleagues, with an educational maxwell from [employer]. Physical exam (Primary Care) Vital Signs: Last Vital Signs Pulse 78 01/16/23 09:34 BP 136/72 01/16/23 09:34 Pulse Ox 97 01/16/23 09:34 Oxygen Delivery Method Room Air 01/16/23 09:34 BMI result Body Mass Index 23.3 Tobacco/Smoking Status: Tobacco use Status Tobacco use date assessed 07/08/22 01/16/23 09:35 Patient Tobacco Use Status Never used Tobacco 01/16/23 09:35 e-Cigarette/Vaping Use Never Used 01/16/23 09:35 PHQ-9: PHQ-9 Score PHQ-9: Total score 0 01/16/23 09:40 Depression Screening Interpretation: Negative Thrive Assessment: Date of Thrive Assessment Date Thrive assessed 07/08/22 01/16/23 09:35 Const General: alert; No acute distress Eyes Conjunctivae: conjunctivae normal Resp Auscultation: clear to auscultation bilaterally Cardio Rate: regular rate Rhythm: regular rhythm GI Inspection: Yes normal to inspection Extrem General: Yes normal to inspection and No edema Assessment and Plan Assessment & Plan (1) Impaired fasting blood sugar: Code(s): R73.01 - Impaired fasting glucose Plan: Decrease the amount of carbohydrate intake, pasta, bread, rice and potatoes are all sugar and that is aside from all the sweet stuff, remember that fruits are good but they are Sweet also. (2) Hypercholesterolemia: Code(s): E78.00 - Pure hypercholesterolemia, unspecified Plan: Avoid fried foods, chicken skin, eggs, butter margarine, pastries and meat. Be it pork or beef they have a lot of cholesterol LDL goal of less than 70 and triglyceride of less than 150. December 2022 blood work done patient is on atorvastatin 80 mg once a day (3) Coronary artery disease: Comment: September 2021 coronary CTA no significant coronary artery disease moderate stenosis LAD 50% Code(s): I25.10 - Atherosclerotic heart disease of [place] coronary artery without angina pectoris Qualifiers: Coronary Disease-Associated Artery/Lesion type: [place] artery [place] vs. transplanted heart: [place] heart Associated angina: without angina Qualified Code(s): I25.10 - Atherosclerotic heart disease of [place] coronary artery without angina pectoris Plan: Control the cholesterol, weight, blood pressure and continue with aspirin 81 mg once a day (4) Hypertension: Code(s): I10 - Essential (primary) hypertension Qualifiers: Hypertension type: essential hypertension Qualified Code(s): I10 - Essential (primary) hypertension Plan: Continue with blood pressure medication. Decrease salt intake and exercise patient is taking hydrochlorothiazide 25 mg once a day amlodipine 10 mg once a day Coding Level of Care Code Est Pt Level 4 (57911) Diagnoses Impaired fasting blood sugar R73.01 Hypercholesterolemia E78.00 Coronary artery disease I25.10 Coronary Disease-Associated Artery/Lesion type: [place] artery [place] vs. transplanted heart: [place] heart Associated angina: without angina Hypertension I10 Hypertension type: essential hypertension
== END 2023-01-16 10:09 | disposition home or self-care (01) ==
PROVIDERS: Visit Provider Internal Medicine
DX: R73.01 Impaired fasting glucose (principal); E78.00 Pure hypercholesterolemia, unspecified; I25.10 Atherosclerotic heart disease of native coronary artery without angina pectoris; I10 Essential (primary) hypertension
CPT/HCPCS: 99214

== ENCOUNTER 2023-04-04 12:13 | Outpatient (AMB) | payer MEDICARE, SELFPAY ==
[2023-04-04 12:33] VITALS: BP 152/50; PULSE 62; O2SAT 99; BMI 23.5
--- NOTE | 2023-04-04 12:33 | A.OFFPC_ITS ---
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: Not Required per policy Accompanied by: Self / Same As Patient Allergies No Known Allergies Allergy (Verified 04/04/23 12:34) Tobacco use date assessed: 07/08/22 Fall risk assessment: No Falls in past year Last assessed Fall Risk: 04/04/23 Dental Screening Dental Screen Date: 04/04/23 Did you have a dental visit in the last 12 months?: Yes Did you have a dental problem in the last 6 months where you did not have access to dental care?: No Was dental information given to patient?: Patient has dentist [facility] Medical History (Updated 07/08/22 @ 11:42 by May Santana MD) Angina pectoris COPD (chronic obstructive pulmonary disease) Overweight (BMI 25.0-29.9) Osteoarthritis of left knee Osteoporosis Hypercholesterolemia Coronary artery disease Hypertension Surgical History History of carpal tunnel release of both wrists History of laparoscopic cholecystectomy Hx of tonsillectomy History of bilateral hip replacements Family History (Updated 01/16/23 @ 09:37 by Krystal Santoyo CMA) Father Pancreatic cancer Mother CHF (congestive heart failure) Brother No problems noted. Daughter No problems noted. Daughter No problems noted. Social History Housing: House Alcohol intake: current Patient Tobacco Use Status: Never used Tobacco e-Cigarette/Vaping Use: Never Used Second Hand Smoke Exposure: No service: No Current occupational status: employed Current occupational exposures/hazards: No Cognitive needs: No Hearing needs: No Vision needs: Yes (reading glasses) Questionnaire Thrive Questionnaire Date Thrive assessed: 07/08/22 CHITO-7 AMB Questionnaire CHITO-7 Date CHITO - 7 assessed: 07/08/22 Source: Developed by Drs. Jarrett Horton, Tiana Allen, Barrera Dewey and colleagues, with an educational maxwell from [employer]. Physical exam (Primary Care) Tobacco/Smoking Status: Tobacco use Status Tobacco use date assessed 07/08/22 01/16/23 09:35 Patient Tobacco Use Status Never used Tobacco 08/28/23 09:35 e-Cigarette/Vaping Use Never Used 01/16/23 09:35 Thrive Assessment: Date of Thrive Assessment Date Thrive assessed 07/08/22 01/16/23 09:35 Coding
--- NOTE | 2023-04-04 12:35 | A.OFFVIS_ITS ---
Intake Vital Signs 3 04/04/23 12:33 Height 5 ft 4 in Weight 137 lb BMI 23.5 BP 152/50 H Blood Pressure Location Lt brachial Position Sitting Pulse 62 Pulse Source Pulse Oximeter Pulse Oximetry (%) 99 Oxygen Delivery Method Room Air Intake Visit Reasons: AWV G0438 Preschool Aide Required: No Accompanied by: Self / Same As Patient Allergies No Known Allergies Allergy (Verified 04/04/23 12:34) Medication List - Last Reconciled 04/04/23 by May Santana MD amlodipine 10 mg PO DAILY aspirin 81 mg PO DAILY atorvastatin 80 mg PO DAILY 90 days calcium carbonate-vitamin D3 600 mg-5 mcg (200 unit) (Calcium 600 + D(3)) 1 cap PO BID cholecalciferol (vitamin D3) 2,000 units PO DAILY hydrochlorothiazide 25 mg PO DAILY mecobalamin (vitamin B12) 1,000 mcg PO DAILY nitroglycerin (Nitrostat) 0.4 mg sublingual Q5M PRN vitamins A,C,B-cfnu-cnhksw 2,148 mcg-113 mg-45 mg-17.4mg (PreserVision AREDS) 1 tab PO BID HPI AWV G0438 2 HPI0 Details 77-year-old female with a history of imp aired glucose tolerance hypercholesterolemia coronary artery disease and hypertension coming in for an annual well visit. Patient's mammogram is up-to-date colonoscopy last done in 2008. Patient is up-to-date with COVID shot and flu shot PFSH Medical History (Updated 04/04/23 @ 13:14 by May Santana MD) Overweight (BMI 25.0-29.9) Angina pectoris COPD (chronic obstructive pulmonary disease) Osteoarthritis of left knee Osteoporosis Hypercholesterolemia Coronary artery disease Hypertension Surgical History History of carpal tunnel release of both wrists History of laparoscopic cholecystectomy Hx of tonsillectomy History of bilateral hip replacements Family History Father Pancreatic cancer Mother CHF (congestive heart failure) Brother No problems noted. Daughter No problems noted. Daughter No problems noted. Social History (Updated 04/04/23 @ 12:57 by May Santana MD) Housing: House Alcohol intake: current Patient Tobacco Use Status: Never used Tobacco e-Cigarette/Vaping Use: Never Used Second Hand Smoke Exposure: No service: No Current occupational status: employed Current occupational exposures/hazards: No Cognitive needs: No Hearing needs: No Vision needs: Yes (reading glasses) Questionnaire Medicare Wellness Checkup [age] What gender do you identify with?: female During the past 4 weeks, how much have you been bothered by emotional problems such as feeling anxious, depressed, irritable, sad or downhearted, and blue?: n ot at all During the past 4 weeks, has your physical & emotional health limited your social activities with family, friends, neighbors, or groups?: not at all During the past 4 weeks, how much bodily pain have you generally had?: very mild pain During the past 4 weeks, was someone available to help you if you needed & wanted help?: no, not at all During the past 4 weeks, what was the hardest physical activity you could do for at least 2 minutes?: heavy Can you get to places out of walking distance without help? (For eg., can you travel alone on buses, taxis or drive your car?): Yes Can you go shopping for groceries or clothes without someone's help?: Yes Can you prepare your own meals?: Yes Can you do your housework without help?: Yes Because of any health problems, do you need the help of another person with your personal care needs such as eating, bathing, dressing or getting around the house?: No Can you handle your own money without help?: Yes During the past 4 weeks, how would you rate your health in general?: very good During the past 4 weeks how have things been going for you?: pretty well Are you having difficulties driving your car?: no Do you always fasten your seat belt when you are in a car?: yes, usually During past 4 weeks, have you been bothered by the following: never: Falling or dizzy when standing up, Sexual problems?, Trouble eating well?, Teeth or denture problems? and Problems using the telephone? and seldom: Tiredness or fatigue? Have you fallen 2 or more times in the past year?: No Are you afraid of falling?: No Are you a smoker?: no During the past 4 weeks, how many drinks of wine, beer, or other alcoholic beverages did you have?: no alcohol at all Do you exercise for about 20 minutes 3 or more times a week?: yes, all the time Have you been given information to help with the following?: no: Hazards in your house that might hurt you? and no: Keeping track of your medications? How often do you have trouble taking medicines the way you have been told to take them?: I always take medicine as prescribed How confident are you that you can control & manage most of your health problems?: very confident What is your race?: White PHQ-9 Over the last 2 weeks, how often have you been bothered by any of the following problems? 1. Little interest or pleasure in doing things: not at all 2. Feeling down, depressed, or hopeless: not at all 3. Trouble falling or staying asleep, or sleeping too much: not at all 4. Feeling tired or having little energy: not at all 5. Poor appetite or overeating: not at all 6. Feeling bad about yourself - or that you are a failure or have let yourself or your family down: not at all 7. Trouble concentrating on things, such as reading the newspaper or watching television: not at all 8. Moving or speaking so slowly that other people could have noticed. Or the opposite - being so fidgety or restless that you have been moving around a lot more than usual: not at all 9. Thoughts that you would be better off or of hurting yourself in some way: not at all Total score: 0 Depression Screening Interpretation: Negative Depression Screening Done: Yes Source: Developed by Drs. Jarrett Horton, Tiana Allen, Barrera Dewey and colleagues, with an educational maxwell from [employer]. Review of Systems Const Denies poor appetite and Denies weakness Eyes Denies no additional complaints ENT Reports Normal hearing present, Denies dizziness, Denies nasal congestion, Denies tinnitus and Denies sore throat Card Denies chest pain, Denies syncope, Denies rapid heart rate and Denies dyspnea Resp Denies cough and Denies dyspnea GI Denies change in stool character, Reports constipation, Denies diarrhea, Denies nausea and Denies vomiting Denies urinary frequency, Denies difficulty voiding and Denies dysuria Neuro Reports Normal hearing present, Denies confusion, Denies dizziness, Denies syncope and Denies weakness Psych Denies confusion Physical Exam Vital Signs: Last Vital Signs Pulse 62 04/04/23 12:33 BP 152/50 H 04/04/23 12:33 Pulse Ox 99 04/04/23 12:33 Oxygen Delivery Method Room Air 04/04/23 12:33 BMI result Body Mass Index 23.5 Const General: No confusion Orientation/consciousness: No confusion HEENT Other: R impacted cerumen Head: Yes normocephalic Head images: 2 1. 3 by 3 inch hematoma Ears: external ears normal Face and sinus: Yes normal facial exam Mouth: moist mucous membranes Throat: Yes tonsils normal Eyes Conjunctivae: conjunctivae normal Pupils: Equal, round and reactive pupils present and Pupil accommodation reflex normal Direct Ophthalmoscopy: normal light reflex Neck Neck: No lymphadenopathy Thyroid: Thyroid normal Chest Chest palpation & inspection: normal inspection of the chest Resp Effort & Inspection: normal respiratory effort and no audible wheezes Auscultation: clear to auscultation bilaterally, no crackles, no wheezes and lung sounds not diminished Cardio Rate: regular rate Rhythm: regular rhythm Peripheral pulses: radial pulses present and dorsalis pedis present GI Other: guaiac negative Palpation (GI): no masses Auscultation: normal bowel sounds and normoactive bowel sounds Skin General skin exam: no rashes or lesions noted Rashes: no rashes Neuro General: No confusion Cranial nerves: Yes Equal, round and reactive pupils present and Yes Normal hearing present Cognition (Neuro): normal cognition Gait exam (Neuro): Normal gait present Motor exam (neuro): 5/5 motor strength present throughout Deep tendon reflexes (DTR's): Right brachioradialis reflex intensity grade: 2+, Left brachioradialis reflex intensity grade: 2+, Right patellar reflex intensity grade: 2+ and Left patellar reflex intensity grade: 2+ Extrem General: No edema Assessment & Plan Assessment & Plan (1) Medicare annual wellness visit, subsequent: Code(s): Z00.00 - Encounter for general adult medical examination without abnormal findings (2) Coronary artery disease: Comment: September 2021 coronary CTA no significant coronary artery disease moderate stenosis LAD 50% Code(s): I25.10 - Atherosclerotic heart disease of [place] coronary artery without angina pectoris Qualifiers: Coronary Disease-Associated Artery/Lesion type: [place] artery [place] vs. transplanted heart: [place] heart Associated angina: without angina Qualified Code(s): I25.10 - Atherosclerotic heart disease of [place] coronary artery without angina pectoris (3) Hypertension: Code(s): I10 - Essential (primary) hypertension Qualifiers: Hypertension type: essential hypertension Qualified Code(s): I10 - Essential (primary) hypertension (4) Hypercholesterolemia: Code(s): E78.00 - Pure hypercholesterolemia, unspecified (5) Impacted cerumen of right ear: Code(s): H61.21 - Impacted cerumen, right ear Plan: will schedule for ear irrigation Quality Reporting (2019) Depression/Bipolar (159/160/161/177) PHQ-9: Total score: 0 Coding Level of Care Code Medicare Subsequent (G0439) Diagnoses Medicare annual wellness visit, subsequent Z00.00 Coronary artery disease involving [place] coronary artery of [place] heart without angina pectoris I25.10 Coronary Disease-Associated Artery/Lesion type: [place] artery [place] vs. transplanted heart: [place] heart Associated angina: without angina Essential hypertension I10 Hypertension type: essential hypertension Hypercholesterolemia E78.00 Impacted cerumen of right ear H61.21
== END 2023-04-04 13:21 | disposition home or self-care (01) ==
PROVIDERS: PCP Internal Medicine; Visit Provider Internal Medicine
DX: Z00.00 Encounter for general adult medical examination without abnormal findings (principal); I25.10 Atherosclerotic heart disease of native coronary artery without angina pectoris; I10 Essential (primary) hypertension; E78.00 Pure hypercholesterolemia, unspecified; H61.21 Impacted cerumen, right ear
CPT/HCPCS: G0439

== ENCOUNTER 2023-04-10 15:48 | Outpatient (AMB) | payer MEDICARE, SELFPAY ==
[2023-04-10 15:51] VITALS: BP 160/70; PULSE 66; O2SAT 98; BMI 23.5
--- NOTE | 2023-04-10 15:51 | A.OFFPC_ITS ---
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 Patient had blood work done also has a history of hypertension hypercholesterolemia. [facility] Medical History (Updated 04/10/23 @ 16:44 by May Santana MD) Overweight (BMI 25.0-29.9) Angina pectoris COPD (chronic obstructive pulmonary disease) Osteoarthritis of left knee Osteoporosis Hypercholesterolemia Coronary artery disease Hypertension Surgical History History of carpal tunnel release of both wrists History of laparoscopic cholecystectomy Hx of tonsillectomy History of bilateral hip replacements Family History Father Pancreatic cancer Mother CHF (congestive heart failure) Brother No problems noted. Daughter No problems noted. Daughter No problems noted. Social History (Updated 04/04/23 @ 12:57 by May Santana MD) Housing: House Alcohol intake: current Patient Tobacco Use Status: Never used Tobacco e-Cigarette/Vaping Use: Never Used Second Hand Smoke Exposure: No service: No Current occupational status: employed Current occupational exposures/hazards: No Cognitive needs: No Hearing needs: No Vision needs: Yes (reading glasses) Questionnaire Thrive Questionnaire Date Thrive assessed: 07/08/22 AUDIT C Alcohol Use Questionnaire (AUDIT-C) 1. How often do you have a drink containing alcohol?: Monthly or less 2. How many drinks containing alcohol do you have on a typical day when you are drinking?: 1 or 2 3. How often do you have six or more drinks on one occasion?: Never Total Score: 1 CHITO-7 AMB Questionnaire CHITO-7 Date CHITO - 7 assessed: 07/08/22 Source: Developed by Drs. Jarrett Horton, Tiana Allen, Barrera Dewey and colleagues, with an educational maxwell from [employer]. Physical exam (Primary Care) Vital Signs: Last Vital Signs Pulse 66 04/10/23 15:51 BP 160/70 H 04/10/23 15:51 Pulse Ox 98 04/10/23 15:51 Oxygen Delivery Method Room Air 04/10/23 15:51 BMI result Body Mass Index 23.5 Tobacco/Smoking Status: Tobacco use Status Tobacco use date assessed 04/10/23 04/10/23 15:52 Patient Tobacco Use Status Never used Tobacco 04/10/23 15:52 e-Cigarette/Vaping Use Never Used 04/10/23 15:52 Thrive Assessment: Date of Thrive Assessment Date Thrive assessed 07/08/22 04/10/23 15:52 Const Other: impacted cerumen bilateral Office Procedures Cerumen Removal From which ear canal was the cerumen removed: bilateral Removal: irrigation, otoscope w/curette, cerumen loop/spoon and other Notes: patient tolerated procedure well, no complications and ear canal clear [id number] Irrigation/Lavage Assessment and Plan Assessment & Plan (1) Impacted cerumen of both ears: Code(s): H61.23 - Impacted cerumen, bilateral Plan: scoop and irrigation done TM intact (2) Hypertension: Code(s): I10 - Essential (primary) hypertension Qualifiers: Hypertension type: essential hypertension Qualified Code(s): I10 - Essential (primary) hypertension Plan: blood pressure monitor script given. Continue with blood pressure medication. Decrease salt intake and exercise Medications: New blood pressure monitor (Blood Pressure Kit) As directed 1 ea 0RF I10 - Essential (primary) hypertension Coding Level of Care Code Est Pt Level 3 (73375) Diagnoses Impacted cerumen of both ears H61.23 Essential hypertension I10 Hypertension type: essential hypertension CPT Codes Office Procedure - CPT: 29187-Fda Irrigation/Lavage ([id number])
== END 2023-04-10 16:48 | disposition home or self-care (01) ==
PROVIDERS: PCP Internal Medicine; Visit Provider Internal Medicine
DX: H61.23 Impacted cerumen, bilateral (principal); I10 Essential (primary) hypertension
CPT/HCPCS: 69210; 99213

== ENCOUNTER 2023-06-30 13:53 | Outpatient (REF) | payer MEDICARE, SELFPAY | END 2023-06-30 13:54 | disposition home or self-care (01) | LOC: HO.MAMMO 13:53 | PROVIDERS: PCP Internal Medicine; Visit Provider Internal Medicine | DX: Z12.31 Encounter for screening mammogram for malignant neoplasm of breast (principal) | CPT/HCPCS: 77063; 77067 ==

== ENCOUNTER → 2023-06-30 14:00 | Outpatient (BNV) | payer MEDICARE, SELFPAY | PROVIDERS: PCP Internal Medicine; Visit Provider Radiology Diagnostic Radiology | DX: Z12.31 Encounter for screening mammogram for malignant neoplasm of breast (principal) | CPT/HCPCS: 77063; 77067 ==

== ENCOUNTER 2023-07-10 13:17 | Outpatient (AMB) | payer MEDICARE, SELFPAY ==
--- NOTE | 2023-07-10 13:22 | MHC.PC.OV ---
Vital Signs 07/10/23 13:29 07/10/23 13:33 Height 5 ft 4 in Weight 134 lb 4 oz BMI 23.0 BP 144/74 H 150/60 H Blood Pressure Location Lt brachial Lt brachial Position Sitting Sitting Pulse 71 Pulse Source Pulse Oximeter Pulse Oximetry (%) 95 Oxygen Delivery Method Room Air Intake Visit Reasons: 3mth f/u Intake Note: Patient is here to follow up on Impaired fasting blood sugar, HTN, Hypercholesterolemia. 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: Not Required per policy Accompanied by: Self / Same As Patient Allergies No Known Allergies Allergy (Verified 07/10/23 13:26) Medication List - Last Reconciled 07/10/23 by May Santana MD amlodipine 10 mg PO DAILY aspirin 81 mg PO DAILY atorvastatin 80 mg PO DAILY 90 days blood pressure monitor (Blood Pressure Kit) As directed calcium carbonate-vitamin D3 600 mg-5 mcg (200 unit) (Calcium 600 + D(3)) 1 cap PO BID cholecalciferol (vitamin D3) 2,000 units PO DAILY lisinopril-hydrochlorothiazide 10-12.5 mg 1 tab PO BID mecobalamin (vitamin B12) 1,000 mcg PO DAILY nitroglycerin (Nitrostat) 0.4 mg sublingual Q5M PRN vitamins A,C,A-msba-ydqaba 2,148 mcg-113 mg-45 mg-17.4mg (PreserVision AREDS) 1 tab PO BID Tobacco use date assessed: 07/10/23 Fall risk assessment: 1 Fall in past year Last assessed Fall Risk: 07/10/23 Dental Screening Dental Screen Date: 07/10/23 Did you have a dental visit in the last 12 months?: Yes Did you have a dental problem in the last 6 months where you did not have access to dental care?: No Was dental information given to patient?: Patient has dentist HPI 3mth f/u HPI Details 78-year-old female with a history of coronary artery disease hypertension hypercholesterolemia impaired glucose tolerance last seen in March 2023. Patient is here for follow-up. Mammogram is up-to-date review of the notes has seen Ophthalmology macular degeneration has had intravitreal injection of the left eye dry macular disc degeneration on the right continuing with AREDS does have cataracts seen June 2023 patient did get the pneumonia vaccine in [facility] Medical History (Updated 07/10/23 @ 13:48 by May Santana MD) Overweight (BMI 25.0-29.9) Angina pectoris COPD (chronic obstructive pulmonary disease) Osteoarthritis of left knee Osteoporosis Hypercholesterolemia Coronary artery disease Hypertension Surgical History History of carpal tunnel release of both wrists History of laparoscopic cholecystectomy Hx of tonsillectomy History of bilateral hip replacements Family History Father Pancreatic cancer Mother CHF (congestive heart failure) Brother No problems noted. Daughter No problems noted. Daughter No problems noted. Social History Housing: House Alcohol intake: current Alcohol intake frequency: holidays/special occasions only Patient Tobacco Use Status: Never used Tobacco e-Cigarette/Vaping Use: Never Used Second Hand Smoke Exposure: No service: No Current occupational status: retired Current occupational exposures/hazards: No Cognitive needs: No Hearing needs: No Vision needs: Yes (reading glasses) Questionnaire PHQ-9 Over the last 2 weeks, how often have you been bothered by any of the following problems? 1. Little interest or pleasure in doing things: not at all 2. Feeling down, depressed, or hopeless: not at all 3. Trouble falling or staying asleep, or sleeping too much: not at all 4. Feeling tired or having little energy: not at all 5. Poor appetite or overeating: not at all 6. Feeling bad about yourself - or that you are a failure or have let yourself or your family down: not at all 7. Trouble concentrating on things, such as reading the newspaper or watching television: not at all 8. Moving or speaking so slowly that other people could have noticed. Or the opposite - being so fidgety or restless that you have been moving around a lot more than usual: not at all 9. Thoughts that you would be better off or of hurting yourself in some way: not at all Total score: 0 Depression Screening Interpretation: Negative Depression Screening Done: Yes Source: Developed by Drs. Jarrett Horton, Tiana Allen, Barrera Dewey and colleagues, with an educational maxwell from [employer]. Thrive Questionnaire Date Thrive assessed: 07/10/23 I am a: Patient What is your living situation today?: I have a steady place to live Within the past 12 months, did the food you bought not last and you didn't have the money to get more?: Never true Within the past 12 months, did you worry whether your food would run out before you got money to buy more?: Never true Do you have trouble paying for medicines?: No Do you have trouble getting transportation to medical appointments?: No Do you have trouble paying your heating and electricity bill?: No Do you have trouble taking care of your child, family member or friend?: No Do you have trouble with day-to-day activities such as bathing, preparing meals, shopping, managing finances, etc.?: No Are you currently unemployed and looking for a job?: No Are you interested in more education?: No Currently or been in a relationship where the following occur: no concerns reported THRIVE Score: 0 AUDIT C Alcohol Use Questionnaire (AUDIT-C) 1. How often do you have a drink containing alcohol?: Monthly or less 2. How many drinks containing alcohol do you have on a typical day when you are drinking?: 1 or 2 Total Score: 1 CHITO-7 AMB Questionnaire CHITO-7 Date CHITO - 7 assessed: 07/10/23 Feeling nervous, anxious, or on edge: 0 = Not at all Not being able to stop or control worryin = Not at all Worrying too much about different things: 0 = Not at all Trouble relaxin = Not at all Being so restless that it is hard to sit still: 0 = Not at all Becoming easily annoyed or irritable: 0 = Not at all Feeling afraid as if something awful might happen: 0 = Not at all Total CHITO-7 score (0-4 normal; 5-9 mild; 10-14 moderate; 15-21 severe): 0 Source: Developed by Drs. Jarrett Horton, Tiana Allen, Barrera Dewey and colleagues, with an educational maxwell from [employer]. Physical exam (Primary Care) Vital Signs: Last Vital Signs Pulse 71 07/10/23 13:29 BP 150/60 H 07/10/23 13:33 Pulse Ox 95 07/10/23 13:29 Oxygen Delivery Method Room Air 07/10/23 13:29 BMI result Body Mass Index 23.0 Tobacco/Smoking Status: Tobacco use Status Tobacco use date assessed 07/10/23 07/10/23 13:26 Patient Tobacco Use Status Never used Tobacco 07/10/23 13:32 e-Cigarette/Vaping Use Never Used 07/10/23 13:32 PHQ-9: PHQ-9 Score PHQ-9: Total score 0 07/10/23 13:29 Depression Screening Interpretation: Negative Thrive Assessment: Date of Thrive Assessment Date Thrive assessed 07/10/23 07/10/23 13:23 Currently or been in a relationship where the following occur: no concerns reported Const General: alert; No acute distress Eyes Conjunctivae: conjunctivae normal Resp Auscultation: clear to auscultation bilaterally Cardio Rate: regular rate Rhythm: regular rhythm GI Inspection: Yes normal to inspection Extrem General: Yes normal to inspection and No edema Results AMB Hemoglobin A1c AMB Hemoglobin A1c 6.0 % Last Edit by ARRON Arriola on 07/10/23 13:38 Assessment and Plan Assessment & Plan (1) Impaired fasting blood sugar: Code(s): R73.01 - Impaired fasting glucose Plan: Decrease the amount of carbohydrate intake, pasta, bread, rice and potatoes are all sugar and that is aside from all the sweet stuff, remember that fruits are good but they are Sweet also. (2) Hypercholesterolemia: Code(s): E78.00 - Pure hypercholesterolemia, unspecified Plan: Avoid fried foods, chicken skin, eggs, butter margarine, pastries and meat. Be it pork or beef they have a lot of cholesterol LDL goal of less than 70 and triglyceride of less than 150 patient is on atorvastatin 80 mg once a day (3) Coronary artery disease: Comment: September 2021 coronary CTA no significant coronary artery disease moderate stenosis LAD 50% Code(s): I25.10 - Atherosclerotic heart disease of [place] coronary artery without angina pectoris Qualifiers: Coronary Disease-Associated Artery/Lesion type: [place] artery [place] vs. transplanted heart: [place] heart Associated angina: without angina Qualified Code(s): I25.10 - Atherosclerotic heart disease of [place] coronary artery without angina pectoris Plan: Control the cholesterol, weight, blood pressure,continue with aspirin 81 mg once a day (4) Hypertension: Code(s): I10 - Essential (primary) hypertension Qualifiers: Hypertension type: essential hypertension Qualified Code(s): I10 - Essential (primary) hypertension Plan: Continue with blood pressure medication. Decrease salt intake and exercise patient on hydrochlorothiazide 25 mg and amlodipine 10 mg once a day once a day only. (5) Numbness of left hand: Code(s): R20.0 - Anesthesia of skin (6) Right hand pain: Code(s): M79.641 - Pain in right hand Orders: Orders AMB Hemoglobin A1c Today R73.01 - Impaired fasting glucose NE nerve conduction velocity Today R20.0 - Anesthesia of skin XR hand RT 2V Today M79.641 - Pain in right hand NE electromyogram (EMG) Today R20.0 - Anesthesia of skin Medications: New lisinopril-hydrochlorothiazide 10-12.5 mg 1 tab PO BID 60 tabs 3RF I10 - Essential (primary) hypertension Discontinued hydrochlorothiazide Discontinued Reason: Doctor's Order 25 mg PO DAILY 90 tabs 3RF I10 - Essential (primary) hypertension Coding Level of Care Code Est Pt Level 4 (79406) Diagnoses Impaired fasting blood sugar R73.01 Hypercholesterolemia E78.00 Coronary artery disease involving [place] coronary artery of [place] heart without angina pectoris I25.10 Coronary Disease-Associated Artery/Lesion type: [place] artery [place] vs. transplanted heart: [place] heart Associated angina: without angina Essential hypertension I10 Hypertension type: essential hypertension Numbness of left hand R20.0 Right hand pain M79.641
[2023-07-10 13:29] VITALS: BP 144/74; PULSE 71; O2SAT 95; BMI 23.0
[2023-07-10 13:33] VITALS: BP 150/60
== END 2023-07-10 13:52 | disposition home or self-care (01) ==
PROVIDERS: PCP Internal Medicine; Visit Provider Internal Medicine
DX: R73.01 Impaired fasting glucose (principal); E78.00 Pure hypercholesterolemia, unspecified; I25.10 Atherosclerotic heart disease of native coronary artery without angina pectoris; I10 Essential (primary) hypertension; R20.0 Anesthesia of skin; M79.641 Pain in right hand
CPT/HCPCS: 83036; 99214

== ENCOUNTER 2023-07-20 08:49 | Outpatient (REF) | payer MEDICARE, SELFPAY ==
--- NOTE | 2023-07-20 08:52 | EMG_ITS ---
Left median and ulnar motor and sensory studies were performed. Left radial sensory study was performed and paraspinal muscles were tested with a needle. IMPRESSION: 1. [id number] left median neuropathy across carpal tunnel. 2. Mild left ulnar neuropathy across cubital tunnel. MD ROMMEL Grey/GILBERT / [id number]
== END 2023-07-20 08:50 | disposition home or self-care (01) ==
LOC: HO.NEURO 08:49
PROVIDERS: PCP Internal Medicine; Visit Provider Internal Medicine
DX: R20.0 Anesthesia of skin (principal)
CPT/HCPCS: 95886; 95909

== ENCOUNTER 2023-09-15 14:05 | Outpatient (AMB) | payer MEDICARE, SELFPAY ==
--- NOTE | 2023-09-15 14:08 | MHC.PC.OV ---
Vital Signs 09/15/23 14:09 Height 5 ft 4 in Weight 126 lb 2 oz BMI 21.6 BP 118/54 L Blood Pressure Location Lt brachial Position Sitting Pulse 86 Pulse Source Pulse Oximeter Pulse Oximetry (%) 98 Oxygen Delivery Method Room Air Intake Visit Reasons: Hypertension Intake Note: Patient is here to follow up on HTN. 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 Mammogram is up-to-date. Patient had some hand numbness and nerve conduction test was done in 07/20/2023 showing mild to moderate left median neuropathy and the mild left ulnar neuropathy. IT band L seen STEFANIA- diclofenax gel - better. L eye macular deg, R eye cataract PFSH Medical History (Updated 09/15/23 @ 14:37 by May Santana MD) Numbness of left hand Right hand pain Overweight (BMI 25.0-29.9) Angina pectoris COPD (chronic obstructive pulmonary disease) Osteoarthritis of left knee Osteoporosis Hypercholesterolemia Coronary artery disease Hypertension Surgical History History of carpal tunnel release of both wrists History of laparoscopic cholecystectomy Hx of tonsillectomy History of bilateral hip replacements Family History Father Pancreatic cancer Mother CHF (congestive heart failure) Brother No problems noted. Daughter No problems noted. Daughter No problems noted. Social History Housing: House Alcohol intake: current Alcohol intake frequency: holidays/special occasions only Patient Tobacco Use Status: Never used Tobacco e-Cigarette/Vaping Use: Never Used Second Hand Smoke Exposure: No service: No Current occupational status: retired Current occupational exposures/hazards: No Cognitive needs: No Hearing needs: No Vision needs: Yes (reading glasses) Questionnaire Thrive Questionnaire Date Thrive assessed: 07/10/23 CHITO-7 AMB Questionnaire CHITO-7 Date CHITO - 7 assessed: 07/10/23 Source: Developed by Drs. Jarrett Horton, Tiana Allen, Barrera Dewey and colleagues, with an educational maxwell from [employer]. Physical exam (Primary Care) Vital Signs: Last Vital Signs Pulse 86 09/15/23 14:09 BP 118/54 L 09/15/23 14:09 Pulse Ox 98 09/15/23 14:09 Oxygen Delivery Method Room Air 09/15/23 14:09 BMI result Body Mass Index 21.6 Tobacco/Smoking Status: Tobacco use Status Tobacco use date assessed 09/15/23 09/15/23 14:14 Patient Tobacco Use Status Never used Tobacco 09/15/23 14:14 e-Cigarette/Vaping Use Never Used 09/15/23 14:14 Thrive Assessment: Date of Thrive Assessment Date Thrive assessed 07/10/23 09/15/23 14:14 Const General: alert; No acute distress Eyes Conjunctivae: conjunctivae normal Resp Auscultation: clear to auscultation bilaterally Cardio Rate: regular rate Rhythm: regular rhythm GI Inspection: Yes normal to inspection Extrem General: Yes normal to inspection and No edema Assessment and Plan Assessment & Plan (1) Left carpal tunnel syndrome: Comment: September 2020 EMG June [id number] left median neuropathy across carpal tunnel. 2. Mild left ulnar neuropathy across cubital tun[place] Code(s): G56.02 - Carpal tunnel syndrome, left upper limb Plan: Continue using the wrist splint/brace. decline referral to ortho for now (2) Ulnar neuropathy of left upper extremity: Code(s): G56.22 - Lesion of ulnar nerve, left upper limb Plan: Discussed about avoiding pressure on the left elbow area (3) Impaired fasting blood sugar: Code(s): R73.01 - Impaired fasting glucose Plan: Decrease the amount of carbohydrate intake, pasta, bread, rice and potatoes are all sugar and that is aside from all the sweet stuff, remember that fruits are good but they are Sweet also. (4) Coronary artery disease: Comment: September 2021 coronary CTA no significant coronary artery disease moderate stenosis LAD 50% Code(s): I25.10 - Atherosclerotic heart disease of [place] coronary artery without angina pectoris Qualifiers: Coronary Disease-Associated Artery/Lesion type: [place] artery [place] vs. transplanted heart: [place] heart Associated angina: without angina Qualified Code(s): I25.10 - Atherosclerotic heart disease of [place] coronary artery without angina pectoris Plan: Control the cholesterol, weight, blood pressure continue with aspirin 81 mg once a day (5) Hypertension: Code(s): I10 - Essential (primary) hypertension Qualifiers: Hypertension type: essential hypertension Qualified Code(s): I10 - Essential (primary) hypertension Plan: Continue with blood pressure medication. Decrease salt intake and exercise presently on amlodipine 10 mg once a day lisinopril hydrochlorothiazide 10/12.5 mgTwice a day (6) Trigger finger, left: Code(s): M65.30 - Trigger finger, unspecified finger Plan: discussed about therapy and if not getting better call Orders: Orders Comprehensive Met. Panel 3 Months I25.10 - Atherosclerotic heart disease of [place] coronary artery without angina pectoris Free T4 (Free Thyroxine) 3 Months I25.10 - Atherosclerotic heart disease of [place] coronary artery without angina pectoris Vitamin B12 and Folate 3 Months I25.10 - Atherosclerotic heart disease of [place] coronary artery without angina pectoris Vitamin D 25-OH Total 3 Months I25.10 - Atherosclerotic heart disease of [place] coronary artery without angina pectoris Complete Blood Count Auto Diff 3 Months I25.10 - Atherosclerotic heart disease of [place] coronary artery without angina pectoris Thyroid Stimulating Hormone 3 Months I25.10 - Atherosclerotic heart disease of [place] coronary artery without angina pectoris Lipid Panel 3 Months E78.00 - Pure hypercholesterolemia, unspecified, I25.10 - Atherosclerotic heart disease of [place] coronary artery without angina pectoris Hemoglobin A1c 3 Months I25.10 - Atherosclerotic heart disease of [place] coronary artery without angina pectoris Coding Level of Care Code Est Pt Level 4 (87162) Diagnoses Left carpal tunnel syndrome G56.02 Ulnar neuropathy of left upper extremity G56.22 Impaired fasting blood sugar R73.01 Coronary artery disease involving [place] coronary artery of [place] heart without angina pectoris I25.10 Coronary Disease-Associated Artery/Lesion type: [place] artery [place] vs. transplanted heart: [place] heart Associated angina: without angina Essential hypertension I10 Hypertension type: essential hypertension Trigger finger, left M65.30
[2023-09-15 14:09] VITALS: BP 118/54; PULSE 86; O2SAT 98; BMI 21.6
== END 2023-09-15 14:46 | disposition home or self-care (01) ==
PROVIDERS: PCP Internal Medicine; Visit Provider Internal Medicine
DX: G56.02 Carpal tunnel syndrome, left upper limb (principal); G56.22 Lesion of ulnar nerve, left upper limb; R73.01 Impaired fasting glucose; I25.10 Atherosclerotic heart disease of native coronary artery without angina pectoris; I10 Essential (primary) hypertension; M65.30 Trigger finger, unspecified finger
CPT/HCPCS: 99214

== ENCOUNTER 2024-04-09 13:17 | Outpatient (AMB) | payer MEDICARE, SELFPAY ==
[2024-04-09 13:24] VITALS: BP 134/56; PULSE 66; O2SAT 98; BMI 22.3
--- NOTE | 2024-04-09 13:24 | AM.OFFVISMDC ---
Intake Vital Signs 04/09/24 13:24 Height 5 ft 4 in Weight 130 lb 0.4 oz BMI 22.3 BP 134/56 L Blood Pressure Location Lt brachial Position Sitting Pulse 66 Pulse Source Pulse Oximeter Pulse Oximetry (%) 98 Oxygen Delivery Method Room Air Intake Visit Reasons: LANETTE G0439 Intake Note: Patient is here for an Annual Wellness Visit. Recreation Adviser Required: No Allergies No Known Allergies Allergy (Verified 04/09/24 13:40) Medication List - Last Reconciled 04/09/24 by Nannette Sunshine PA-C amlodipine 10 mg PO DAILY aspirin 81 mg PO DAILY atorvastatin 80 mg PO DAILY 90 days blood pressure monitor (Blood Pressure Kit) As directed calcium carbonate-vitamin D3 600 mg-5 mcg (200 unit) (Calcium 600 + D(3)) 1 cap PO BID cholecalciferol (vitamin D3) 2,000 units PO DAILY lisinopril-hydrochlorothiazide 10-12.5 mg 1 tab PO BID mecobalamin (vitamin B12) 1,000 mcg PO DAILY nitroglycerin (Nitrostat) 0.4 mg sublingual Q5M PRN vitamins A,C,R-loeg-euvdhc 2,148 mcg-113 mg-45 mg-17.4mg (PreserVision AREDS) 1 tab PO BID HPI SWV G0439 HPI Details 78-year-old female with a history of impaired glucose tolerance hypercholesterolemia coronary artery disease hypertension last seen August 2023 coming in for annual wellness visit. Patient continues to have numbness of the left hand and has had nerve conductions which showed ulnar and medial neuropathy. She does see the eye doctor yearly and retina specialist for macular degeneration received injections for this concern. She has seen Cardiology next month. [facility] Medical History Numbness of left hand Right hand pain Overweight (BMI 25.0-29.9) Angina pectoris COPD (chronic obstructive pulmonary disease) Osteoarthritis of left knee Osteoporosis Hypercholesterolemia Coronary artery disease Hypertension Surgical History History of carpal tunnel release of both wrists History of laparoscopic cholecystectomy Hx of tonsillectomy History of bilateral hip replacements Family History Father Pancreatic cancer Mother CHF (congestive heart failure) Brother No problems noted. Daughter No problems noted. Daughter No problems noted. Social History Housing: House Alcohol intake: current Alcohol intake frequency: holidays/special occasions only Patient Tobacco Use Status: Never used Tobacco e-Cigarette/Vaping Use: Never Used Second Hand Smoke Exposure: No service: No Current occupational status: retired Current occupational exposures/hazards: No Cognitive needs: No Hearing needs: No Vision needs: Yes (reading glasses) Questionnaire Medicare Wellness Checkup What is your age?: 78 or older What gender do you identify with?: female During the past 4 weeks, how much have you been bothered by emotional problems such as feeling anxious, depressed, irritable, sad or downhearted, and blue?: slightly During the past 4 weeks, has your physical & emotional health limited your social activities with family, friends, neighbors, or groups?: not at all During the past 4 weeks, how much bodily pain have you generally had?: no pain During the past 4 weeks, was someone available to help you if you needed & wanted help?: yes, quite a bit During the past 4 weeks, what was the hardest physical activity you could do for at least 2 minutes?: moderate Can you get to places out of walking distance without help? (For eg., can you travel alone on buses, taxis or drive your car?): Yes Can you go shopping for groceries or clothes without someone's help?: Yes Can you prepare your own meals?: Yes Can you do your housework without help?: Yes Because of any health problems, do you need the help of another person with your personal care needs such as eating, bathing, dressing or getting around the house?: No Can you handle your own money without help?: Yes During the past 4 weeks, how would you rate your health in general?: very good During the past 4 weeks how have things been going for you?: pretty well Are you having difficulties driving your car?: no Do you always fasten your seat belt when you are in a car?: yes, usually During past 4 weeks, have you been bothered by the following: never: Falling or dizzy when standing up, Sexual problems?, Trouble eating well?, Teeth or denture problems? and Problems using the telephone? and seldom: Tiredness or fatigue? Have you fallen 2 or more times in the past year?: No Are you afraid of falling?: No Are you a smoker?: no During the past 4 weeks, how many drinks of wine, beer, or other alcoholic beverages did you have?: no alcohol at all Do you exercise for about 20 minutes 3 or more times a week?: yes, most of the time Have you been given information to help with the following?: no: Hazards in your house that might hurt you? and no: Keeping track of your medications? How often do you have trouble taking medicines the way you have been told to take them?: I always take medicine as prescribed How confident are you that you can control & manage most of your health problems?: very confident What is your race?: White PHQ-9 Over the last 2 weeks, how often have you been bothered by any of the following problems? 1. Little interest or pleasure in doing things: not at all 2. Feeling down, depressed, or hopeless: not at all 3. Trouble falling or staying asleep, or sleeping too much: not at all 4. Feeling tired or having little energy: not at all 5. Poor appetite or overeating: not at all 6. Feeling bad about yourself - or that you are a failure or have let yourself or your family down: not at all 7. Trouble concentrating on things, such as reading the newspaper or watching television: not at all 8. Moving or speaking so slowly that other people could have noticed. Or the opposite - being so fidgety or restless that you have been moving around a lot more than usual: not at all 9. Thoughts that you would be better off or of hurting yourself in some way: not at all Total score: 0 Depression Screening Interpretation: Negative Depression Screening Done: Yes Source: Developed by Drs. Jarrett Horton, Tiana Allen, Barrera Dewey and colleagues, with an educational maxwell from [employer]. Review of Systems Const Denies body aches, Denies fatigue, Denies fever(s), Denies frequent falls, Denies headache(s) and Denies weakness Eyes Reports no additional complaints and Denies change in vision ENT Denies dysphagia, Denies dizziness, Denies facial pain, Denies headache(s), Denies nasal congestion and Denies odynophagia Card Denies chest pain, Reports chest pain at rest (rarely last episode January 2024), Denies syncope, Denies irregular heart rhythm, Reports leg edema, Denies lightheadedness and Denies dyspnea Resp Denies cough and Denies dyspnea GI Denies constipation, Denies dysphagia, Denies dyspepsia, Denies diarrhea, Denies nausea, Denies odynophagia and Denies vomiting Denies urinary frequency, Denies dysuria, Denies urinary hesitancy and Denies urinary urgency Musc Denies back pain and Denies myalgias Skin/Breast Reports system reviewed and no additional complaints, except as documented Neuro Denies dizziness, Denies syncope, Denies frequent falls, Denies headache(s) and Denies weakness Psych Reports no additional complaints Endo Denies fatigue Physical Exam Vital Signs: Last Vital Signs Pulse 66 04/09/24 13:24 BP 134/56 L 04/09/24 13:24 Pulse Ox 98 04/09/24 13:24 Oxygen Delivery Method Room Air 04/09/24 13:24 BMI result Body Mass Index 22.3 Const General: cooperative, healthy appearing, comfortable and no acute distress Orientation/consciousness: patient oriented x3 HEENT Head: Yes normocephalic Ears: hearing grossly normal bilaterally, external ears normal, TM's normal bilaterally and EAC's normal General nose exam: Normal external nose present Face and sinus: Yes normal facial exam and Yes sinuses nontender Mouth: Normal oral and palatal mucosa present and tongue normal Throat: Yes posterior oropharynx normal Eyes General: appearance normal, both eyes and all related structures Conjunctivae: conjunctivae normal Pupils: Equal, round and reactive pupils present EOM: EOMs intact bilaterally and No Nystagmus present Neck Neck: Yes normal visual inspection, Yes full ROM and Yes no lymphadenopathy Chest Chest palpation & inspection: normal inspection of the chest Resp Effort & Inspection: normal respiratory effort Auscultation: clear to auscultation bilaterally, no crackles, no rales, no rhonchi, no wheezes and breath sounds present Cardio Rate: regular rate Rhythm: regular rhythm Peripheral pulses: radial pulses present and dorsalis pedis present GI Inspection: Yes normal to inspection and No Abdominal wall edema Palpation (GI): Soft to palpation, not firm and nontender Auscultation: normal bowel sounds Rectal Exam - Female: deferred General: Yes no CVA tenderness Back/Spine/Pelvis Back: no CVA tenderness Skin General skin exam: no rashes or lesions noted Neuro General: patient oriented x3 Cranial nerves: Yes Equal, round and reactive pupils present, Yes Midline tongue present, Yes Ability to bilaterally elevate shoulders present and No Nystagmus present Gait exam (Neuro): Normal gait present Extrem General: Yes normal to inspection, Yes full ROM, No no pedal edema and No edema Psych Speech and movement: Normal speech and movement present Affect: normal affect Insight: Good insight present (Psych) Judgement: Good judgement present (Psych) Immunizations tetanus-diphtheria toxoids-Td 2 Lf unit-2 Lf unit/0.5 mL IM suspension Performing Provider: Nannette Sunshine PA-C [facility] Administered by: ARRON Carrillo on 04/09/24 14:13 Dose Route Admin Location Dispensed Lot Number Expiration Date NDC [place] [employer] 0.5 mL IM Left Deltoid 0.5 mL [id number] 07/01/24 [address]-0 [employer] VIS Given Date VIS Provided VIS Publication Date 04/09/24 Single Vaccine 20 Eligibility Eligibility Date Funding Source Not [facility] Eligible 04/09/24 [facility] Assessment & Plan Assessment & Plan (1) Medicare annual wellness visit, subsequent: Code(s): Z00.00 - Encounter for general adult medical examination without abnormal findings Plan: Patient is up-to-date on all recommended routine screenings vaccinations for her age. Ordered for updated blood work and follow up in 3 months. [place]win of care was reviewed with patient patient was provided with a written screening schedule. Healthcare proxy/ MOLST forms were completed by the patient prior to this visit. (2) Insomnia: Code(s): G47.00 - Insomnia, unspecified Plan: No concerns at this time (3) Vitamin B 12 deficiency: Code(s): E53.8 - Deficiency of other specified B group vitamins Plan: We will continue to monitor with routine lab work and continue on vitamin B12 supplement. (4) Impaired fasting blood sugar: Code(s): R73.01 - Impaired fasting glucose Plan: Decrease the amount of carbohydrates such as pasta, bread, rice, and potatoes and limit the amount of sweets. Although fruits are generally healthy they should be eaten in moderation as they are still high in sugar. (5) Left carpal tunnel syndrome: Comment: September 2020 EMG June [id number] left median neuropathy across carpal tunnel. 2. 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 Continue to use night splints (6) Hypercholesterolemia: Code(s): E78.00 - Pure hypercholesterolemia, unspecified Plan: Avoid foods that are high in cholesterol such as red meat, fried foods, eggs and baked goods. Triglyceride goal of less than 150 and LDL goal of less than 100. Continue on atorvastatin 80 mg (7) Coronary artery disease: Comment: September 2021 coronary CTA no significant coronary artery disease moderate stenosis LAD 50% Code(s): I25.10 - Atherosclerotic heart disease of [place] coronary artery without angina pectoris Qualifiers: Associated angina: without angina Coronary Disease-Associated Artery/Lesion type: [place] artery [place] vs. transplanted heart: [place] heart Qualified Code(s): I25.10 - Atherosclerotic heart disease of [place] coronary artery without angina pectoris Plan: Continue on tight control of blood pressure, cholesterol and diabetes. (8) Hypertension: Code(s): I10 - Essential (primary) hypertension Qualifiers: Hypertension type: essential hypertension Qualified Code(s): I10 - Essential (primary) hypertension Plan: Continue on current blood pressure medication. Avoid salt intake and encourage healthy diet and regular exercise. Plan This note was constructed using voice recognition software. While every effort has been made to ensure accuracy and financial assistance specialist, still areas may have been included sometimes these areas may affect the content or meeting of the given symptoms. Total time spent caring for the patient today was 30 minutes. This includes time spent before the visit reviewing the chart, time spent during the visit, and time spent after the visit and documentation. Orders: Orders Free T4 (Free Thyroxine) Today I25.10 - Atherosclerotic heart disease of [place] coronary artery without angina pectoris Complete Blood Count Auto Diff Today I25.10 - Atherosclerotic heart disease of [place] coronary artery without angina pectoris Hemoglobin A1c Today I25.10 - Atherosclerotic heart disease of [place] coronary artery without angina pectoris Thyroid Stimulating Hormone Today I25.10 - Atherosclerotic heart disease of [place] coronary artery without angina pectoris Td State Immunization Today Z23 - Encounter for immunization Comprehensive Met. Panel Today I25.10 - Atherosclerotic heart disease of [place] coronary artery without angina pectoris Lipid Panel Today E78.00 - Pure hypercholesterolemia, unspecified, I25.10 - Atherosclerotic heart disease of [place] coronary artery without angina pectoris Vitamin B12 and Folate Today I25.10 - Atherosclerotic heart disease of [place] coronary artery without angina pectoris Vitamin D 25-OH Total Today I25.10 - Atherosclerotic heart disease of [place] coronary artery without angina pectoris XR DEXA axial skeleton Today Z78.0 - Asymptomatic menopausal state Medications: New tetanus-diphtheria toxoids-Td 0.5 mL IM ONCE 0.5 mL 0RF Z23 - Encounter for immunization Quality Reporting (2020) Depression/Bipolar (159/160/161/177) PHQ-9: Total score: 0 Coding Level of Care Code Medicare Subsequent (G0439) Diagnoses Medicare annual wellness visit, subsequent Z00.00 Insomnia G47.00 Vitamin B 12 deficiency E53.8 Impaired fasting blood sugar R73.01 Left carpal tunnel syndrome G56.02 Hypercholesterolemia E78.00 Coronary artery disease involving [place] coronary artery of [place] heart without angina pectoris I25.10 Associated angina: without angina Coronary Disease-Associated Artery/Lesion type: [place] artery [place] vs. transplanted heart: [place] heart Essential hypertension I10 Hypertension type: essential hypertension
== END 2024-04-09 14:07 | disposition home or self-care (01) ==
PROVIDERS: PCP Internal Medicine
DX: Z00.00 Encounter for general adult medical examination without abnormal findings (principal); G47.00 Insomnia, unspecified; E53.8 Deficiency of other specified B group vitamins; R73.01 Impaired fasting glucose; G56.02 Carpal tunnel syndrome, left upper limb; E78.00 Pure hypercholesterolemia, unspecified; I25.10 Atherosclerotic heart disease of native coronary artery without angina pectoris; I10 Essential (primary) hypertension; Z23 Encounter for immunization

== ENCOUNTER → 2024-04-09 13:17 | Outpatient (BNVA) | payer MEDICARE, SELFPAY | PROVIDERS: PCP Internal Medicine | DX: Z00.00 Encounter for general adult medical examination without abnormal findings (principal); Z23 Encounter for immunization; G47.00 Insomnia, unspecified; E53.8 Deficiency of other specified B group vitamins; R73.01 Impaired fasting glucose; G56.02 Carpal tunnel syndrome, left upper limb; E78.00 Pure hypercholesterolemia, unspecified; I25.10 Atherosclerotic heart disease of native coronary artery without angina pectoris; I10 Essential (primary) hypertension | CPT/HCPCS: 90471; 90714; 96127 ==

== ENCOUNTER 2024-04-23 14:47 | Outpatient (AMB) | payer MEDICARE, SELFPAY ==
--- NOTE | 2024-04-23 14:52 | MHC.OFFVIS ---
Vital Signs 04/23/24 14:57 Height 5 ft 4 in Weight 154 lb 5.177 oz BMI 26.5 BP 124/68 Blood Pressure Location Lt brachial Position Sitting Pulse 67 Pulse Source Monitor Intake Visit Reasons: 2 year follow up NS Allergies No Known Allergies Allergy (Verified 04/09/24 13:40) Medication List - Last Reconciled 04/23/24 by Bolivar Chapman MD amlodipine 10 mg PO DAILY aspirin 81 mg PO DAILY atorvastatin 80 mg PO DAILY 90 days blood pressure monitor (Blood Pressure Kit) As directed calcium carbonate-vitamin D3 600 mg-5 mcg (200 unit) (Calcium 600 + D(3)) 1 cap PO BID cholecalciferol (vitamin D3) 2,000 units PO DAILY lisinopril-hydrochlorothiazide 10-12.5 mg 1 tab PO BID mecobalamin (vitamin B12) 1,000 mcg PO DAILY nitroglycerin (Nitrostat) 0.4 mg sublingual Q5M PRN vitamins A,C,K-zvda-pdaqhn 2,148 mcg-113 mg-45 mg-17.4mg (PreserVision AREDS) 1 tab PO BID HPI Comments Details: [place] comes for follow-up. She remains very active overall. She denies any exertional chest pain. She had 2 episodes of chest pain at rest which she describes retrosternal pressure in his chest radiating to both her jaws happening once in August of once since January with no particular triggers. She was not significantly stress. She had not over exerted herself. She took sublingual nitroglycerin x2, both times in the symptoms resolved. She was no history of acid reflux disease. She denies any other cardiac symptoms. Takes all her medications. Blood pressures been generally well controlled. LDL most recently checked at 67 mg/dL, well optimized. [facility] Medical History Numbness of left hand Right hand pain Overweight (BMI 25.0-29.9) Angina pectoris COPD (chronic obstructive pulmonary disease) Osteoarthritis of left knee Osteoporosis Hypercholesterolemia Coronary artery disease Hypertension Surgical History History of carpal tunnel release of both wrists History of laparoscopic cholecystectomy Hx of tonsillectomy History of bilateral hip replacements Family History Father Pancreatic cancer Mother CHF (congestive heart failure) Brother No problems noted. Daughter No problems noted. Daughter No problems noted. Social History Housing: House Alcohol intake: current Alcohol intake frequency: holidays/special occasions only Patient Tobacco Use Status: Never used Tobacco e-Cigarette/Vaping Use: Never Used Second Hand Smoke Exposure: No service: No Current occupational status: retired Current occupational exposures/hazards: No Cognitive needs: No Hearing needs: No Vision needs: Yes (reading glasses) Review of Systems Const Denies chills, Denies fatigue, Denies fever(s), Denies frequent falls, Denies weakness, Denies weight gain and Denies weight loss ENT Denies dizziness Card Denies chest pain, Denies leg edema, Denies lightheadedness, Denies palpitations, Denies dyspnea, Denies dyspnea on exertion, Denies orthopnea and Denies other (loss of consciousness) Resp Denies cough, Denies dyspnea and Denies dyspnea on exertion GI Denies hematochezia and Denies change in stool character Musc Denies abnormal gait, Denies muscle weakness, Denies numbness, Denies radiating pain into limb and Denies tingling Neuro Denies Abnormal speech present, Denies abnormal gait, Denies dizziness, Denies frequent falls, Denies numbness, Denies tingling and Denies weakness Endo Denies fatigue and Denies palpitations Physical Exam Vital Signs: Last Vital Signs Pulse 67 04/23/24 14:57 BP 124/68 04/23/24 14:57 BMI result Body Mass Index 26.5 Const General: cooperative, comfortable, no acute distress, well developed, alert, awake and well groomed Nutritional Appearance: average body habitus Orientation/consciousness: patient oriented x3 Limitations: no limitations Neck Neck: Yes trachea midline, Yes supple and Yes no JVD Resp Effort & Inspection: normal respiratory effort Auscultation: clear to auscultation bilaterally Cardio Jugular venous distension: no JVD Palpation: normal PMI Rate: regular rate Rhythm: regular rhythm Heart sounds: S1 normal heart sound present, S2 normal heart sound present, no click, no gallops, no murmurs and no rubs Peripheral pulses: Peripheral pulses 2+ throughout GI Auscultation: normal bowel sounds Skin General skin exam: no rashes or lesions noted Neuro General: patient oriented x3 and no focal motor deficits Speech: No Abnormal speech present Extrem General: Yes no clubbing, cyanosis or edema Psych Appearance: grossly normal Office Procedures EKG Details: EKG shows normal sinus rhythm with sinus arrhythmia with nonspecific ST T wave changes [id number], Complete Assessment & Plan Assessment & Plan (1) Coronary artery disease: Comment: September 2021 coronary CTA no significant coronary artery disease moderate stenosis LAD 50% Code(s): I25.10 - Atherosclerotic heart disease of [place] coronary artery without angina pectoris Category: Medical Qualifiers: Associated angina: without angina Coronary Disease-Associated Artery/Lesion type: [place] artery [place] vs. transplanted heart: [place] heart Qualified Code(s): I25.10 - Atherosclerotic heart disease of [place] coronary artery without angina pectoris Plan: Coronary artery disease with no exertional symptoms of chest discomfort. She has episodes at rest which could represent coronary vaso spasm, response to sublingual nitroglycerin. Also could represent esophageal spasm. This was discussed with her. No further workup is indicated in form of provocative testing. Continue aggressive medical therapy with low-dose aspirin therapy. Continue high-intensity statin therapy with LDL well optimized at this point time. Continue use sublingual nitroglycerin as tolerated. Advised to call me with change in her symptoms. Continue aggressive blood pressure control. Advised to maintain activity level as tolerated. (2) Hypertension: Code(s): I10 - Essential (primary) hypertension Category: Medical Qualifiers: Hypertension type: essential hypertension Qualified Code(s): I10 - Essential (primary) hypertension Plan: Hypertension which is currently well optimized on triple therapy. Continue to monitor blood pressure at home maintain a log. Goal blood pressure less than 130/84. Low-salt diet was discussed. Advised to maintain activity level as tolerated. Will follow up in the clinic in 2 year's time, sooner p.r.n.. Thank you for allowing me to partake in his care Coding Level of Care Code Est Pt Level 4 (01875) Complex EM visit Add On G2211 Diagnoses Coronary artery disease involving [place] coronary artery of [place] heart without angina pectoris I25.10 Associated angina: without angina Coronary Disease-Associated Artery/Lesion type: [place] artery [place] vs. transplanted heart: [place] heart Essential hypertension I10 Hypertension type: essential hypertension CPT Codes EKG - CPT: 35912-[id number], Complete ([id number])
[2024-04-23 14:57] VITALS: BP 124/68; PULSE 67; BMI 26.5
== END 2024-04-23 15:14 | disposition home or self-care (01) ==
PROVIDERS: PCP Internal Medicine; Visit Provider Internal Medicine Cardiovascular Disease
DX: I25.10 Atherosclerotic heart disease of native coronary artery without angina pectoris (principal); I10 Essential (primary) hypertension
CPT/HCPCS: 93010; 99214; G2211

== ENCOUNTER → 2024-04-23 14:47 | Outpatient (BNVA) | payer MEDICARE, SELFPAY | PROVIDERS: PCP Internal Medicine; Visit Provider Internal Medicine Cardiovascular Disease | DX: I25.10 Atherosclerotic heart disease of native coronary artery without angina pectoris (principal); I10 Essential (primary) hypertension; R07.9 Chest pain, unspecified | CPT/HCPCS: 93005; 99212 ==

== ENCOUNTER 2024-07-04 13:27 | Outpatient (REF) | payer MEDICARE, SELFPAY ==
--- NOTE | ~2024-07-04 | MM_ITS ---
EXAMINATION: DXA BONE DENSITY AXIAL HISTORY: Estrogen deficiency TECHNIQUE: OrderUp Dual energy absorptiometry (DEXA) of the lumbar spine and distal forearm was performed. The hips were not evaluated due to history of bilateral total hip arthroplasty. COMPARISON: Comparison is made with the prior examination dated 08/31/2018. FINDINGS: The bone mineral density of the lumbar spine is 1.293 with a T-score of 0.9, and a Z-score of 2.9. This represents a BMD change of -1.0% compared to the prior exam. This is not statistically significant. The bone mineral density of the distal forearm is 0.706 with a T-score of -1.9, and a Z-score of 0.9. This represents BMD change of -11.0% compared to the prior exam. This is statistically significant. MM/XR DEXA axial skeleton IMPRESSION: Based on bone mineral density, and according to World Health Organization (WHO) criteria, the diagnosis is consistent with osteopenia. All bone density values are in grams per centimeter squared (g/cm2). Statistically, 68% of repeat scans fall within 1 SD (+/- 0.010 g/cm2 for AP spine L1-L4) and 1 SD (+/- 0.012 g/cm2 for femur total) FRAX is a trademark of the [employer]'s [employer] Metabolic Bone Disease, a World Health Organization (WHO) Collaborating Center. Electronically signed by: Jarrett Knott MD 07/04/2024 02:47 PM [facility]
--- OUTSIDE RECORDS SUMMARY | 2024-07-04 13:31 | XMS_ITS ---
Author Organization [facility] Address [address] [place] [address] Care Team Providers Care Graphics Coordinator Name Role Phone May Santana Primary Care Provider Haritha Coker [phone] REASON FOR VISIT cx 02/14/23 apt Encounters Encounter Location Date Provider Diagnosis [facility] [address] [place] [address] 02/13/2023 Haritha Joseph Plan Of Treatment No Information Progress Notes * Verona GUTHRIE SDOB:1945 (77 yo F)Acc No.[id number]:02/13/2023 Patient:?Verona Guthrie :1945???Age:77 Y???Sex:Female Address:[address] [place] [address] Renetta Pimentel[place]FFANIE, [address] * true * Date:? Generated for Printi christel/Alexandrea/eTransmitting on:?07/04/2024 01:31 PM EST
--- OUTSIDE RECORDS SUMMARY | 2024-07-04 13:31 | XMS_ITS ---
Author Organization [facility] Address [address] [place] [address] Care Team Providers Care Manager Banking Name Role Phone May Santana Primary Care Provider Haritha Coker [phone] Encounters Encounter Location Date Provider Diagnosis [facility] [address] [place] [address] 02/14/2023 Haritha Joseph Plan Of Treatment No Information Progress Notes * Verona GUTHRIE SDOB:1945 (79 yo F)Acc No.[id number]:02/14/2023 Progress Note Patient:?JESUS Verona Chivo Provider:?Haritha Joseph DPM :1945???Age:77 Y???Sex:Female D ate:02/14/2023 Address:[address] [place], [place] [address]Renetta steele [facility] Pcp:May Santana Subjective: * Chief Complaints: * ??? * Medical History:? Objective: * Vitals:? Assessment: Plan: * Treatment: * Images: * The named appointment provid er may or may not be the originator of this progress note, and it is not deemed complete until electronically signed by the appointment provider. Sign off status: Pending * Provider:?Haritha Joseph DPM Date:? Generated for Printi christel/Alexandrea/eTransmitting on:?07/04/2024 01:30 PM EST
--- OUTSIDE RECORDS SUMMARY | 2024-07-04 13:31 | XMS_ITS | Patient Health Record ---
[facility] Address [address] [facility] [place] [address] Care Team Providers Care Principal Automation Engineer Name Role Phone May Santana Primary Care Provider Haritha Coker Unavailable [phone] Allergies No Known Allergies Reason For Referral No Information Medications Medication SIG (Take, Route, Frequency, Duration) Notes Start Date End Date Status Stool Softener Unkno wn Calcium 500 + D Unkn own Azithromycin 250 MG Oral for 5 Unknown Furosemide 20 MG Oral for 30 U nknown Cephalexin 500 MG Orally Un known Aspirin 81 MG 1 tablet Orally Once a day for 30 day(s) Active PreserVision AREDS - as directed Orally Active Vitamin B12 1000 MCG 1 tablet Orally Once a day for 30 day(s) Active Nitrostat 0.4 MG as directed Sublingual Active hydroCHLOROthiazide 25 MG 1 tablet in th e morning Orally Once a day Active Vitamin D3 50 MCG (1999) TAKE 1 TABLE T BY MOUTH DAILY Oral for 90 Active Atorvastatin Calcium 40 MG Oral for 90 Active amLODIPine Besylate 10 MG TAKE 1 TABLET BY MOUTH EVERY DAY Oral for 90 Active Pravastatin Sodium 40 MG Oral for 90 Unknown Isosorbide Mononitrate ER 30 MG Oral for 90 Unknown Celecoxib 200 MG Oral for 30 U nknown Amoxicillin-Pot Clavulanate 875-125 MG Oral for 7 Not-Taking Immunizations Vaccine Route Administration Date Status Comme nts COVID-19 Pfizer BioNTech Vaccine Unknown 08/31/2021 Administered 3rd 03/15/2021 2nd 07/16/2020 1st 06/25/2020 Influenza Unknown 02/21/2022 Administered Social History Tobacco Use: Social History Observation Description Date Details (start date - stop date) Never Smoker NA - NA Tobacco Use/Smoking Question Answer Notes Are you a: nonsmoker Additional Findings: Tobacco Non-User Current no n-smoker Alcohol Screen Question Answer Notes Did you have a drink containing alcohol in the p ast year? No Points 0 Interpretation Negative Tobacco use other than smoking: Question Answer Notes Are you an other tobacco user? No Problems Problem Type SNOMED Code ICD Code Onset Dates Problem Status W/U Status Risk Notes Problem [id number] Hammer toe of right foot (M20.41) Active confirmed Problem [id number] Hammer toe of left foot (M20.42) Active confirmed Plan Of Treatment No Information Insurance Providers Payer Name Payer Address Payer Phone Subscriber Number Group Number Insured Name Patient Relationship to Insured Coverage Start Date Coverage End Date Medicare National Govt [employer] [address] [facility] [place] [address] [id number] Verona Guthrie Self - patient is the insured [facility] [address] [place] [address] [phone] [id number] Verona Guthrie Self - patient is the insured Medical (General) History Medical History History ICD Code Angina Arthritis Back,Hip,and Knee pain Broken bones Cholesterol Gall bladder problems High blood pressure Macular degeneration Chicken pox Joint implants/screws Measles Mumps Warts pre-diabetic Surgical History Surgery Date(Month/Year) 2 hip replacements tonsillectomy 1948 carpal tunnel surgery both wrists and cy st removal 1989' dilatation and curettage x 2 cholecystectomy 1999 knee replacement 2020
== END 2024-07-04 13:28 | disposition home or self-care (01) ==
LOC: HO.MAMMO 13:27
DX: Z12.31 Encounter for screening mammogram for malignant neoplasm of breast (principal); Z13.820 Encounter for screening for osteoporosis; Z78.0 Asymptomatic menopausal state
CPT/HCPCS: 77063; 77067; 77080

== ENCOUNTER → 2024-07-04 13:30 | Outpatient (BNV) | payer MEDICARE, SELFPAY | PROVIDERS: Visit Provider Radiology Diagnostic Radiology | DX: Z12.31 Encounter for screening mammogram for malignant neoplasm of breast (principal) | CPT/HCPCS: 77063; 77067 ==

== ENCOUNTER 2024-07-06 07:52 | Outpatient (REF) | payer MEDICARE, SELFPAY ==
--- OUTSIDE RECORDS SUMMARY | 2024-07-06 07:54 | XMS_ITS ---
Author Organization [facility] Address [address] [place] [address] Care Team Providers Care Space Controller Name Role Phone May Santana Primary Care Provider Haritha Coker [phone] Encounters Encounter Location Date Provider Diagnosis [facility] [address] [place] [address] 02/14/2023 Haritha Joseph Plan Of Treatment No Information Progress Notes * Verona GUTHRIE SDOB:1945 (79 yo F)Acc No.[id number]:02/14/2023 Progress Note Patient:?JESUS Verona Chivo Provider:?Haritha Joseph DPM :1945???Age:77 Y???Sex:Female D ate:02/14/2023 Address:[address] [place], [place] [address]Renetta steele [facility] Pcp:May Santana Subjective: * Chief Complaints: * ??? * Medical History:? Objective: * Vitals:? Assessment: Plan: * Treatment: * Images: * The named appointment provid er may or may not be the originator of this progress note, and it is not deemed complete until electronically signed by the appointment provider. Sign off status: Pending * Provider:?Haritha Joseph DPM Date:? Generated for Printi christel/Alexandrea/eTransmitting on:?07/06/2024 07:54 AM EST
--- OUTSIDE RECORDS SUMMARY | 2024-07-06 07:55 | XMS_ITS | Patient Health Record ---
Author Organization [facility] Address [address] [facility] [place] [address] Care Team Providers Care Product Tester Name Role Phone May Santana Primary Care Provider Haritha Coker Unavailable [phone] Allergies No Known Allergies Reason For Referral [...] Problem Status W/U Status Risk Notes Problem [id number] Hammer toe of right foot (M20.41) Active confirmed Problem [id number] Hammer toe of left foot (M20.42) Active confirmed Plan Of Treatment No Information Insurance Providers Payer Name Payer Address Payer Phone Subscriber Number Group Number Insured Name Patient Relationship to Insured Coverage Start Date Coverage End Date Medicare National Govt [employer] [address] [facility] [address] [id number] Verona Guthrie Self - patient is the insured [employer] [facility] [address] [place] [address] [phone] [id number] Verona Guthrie Self - patient is the [...]
--- OUTSIDE RECORDS SUMMARY | 2024-07-06 07:55 | XMS_ITS ---
Author Organization [facility] Address [address] [place] [address] Care Team Providers Care Custom Framing Specialist Name Role Phone May Santana Primary Care Provider Haritha Coker [phone] REASON FOR VISIT cx 02/14/23 apt Encounters Encounter Location Date Provider Diagnosis [facility] [address] [place] [address] 02/13/2023 Haritha Joseph Plan Of Treatment No Information Progress Notes * Verona GUTHRIE SDOB:1945 (77 yo F)Acc No.[id number]:02/13/2023 Patient:?Verona Guthrie :1945???Age:77 Y???Sex:Female Address:[address] [place] [address] [place], [address] * true * Date:? Generated for Printi christel/Alexandrea/eTransmitting on:?07/06/2024 07:54 AM EST
[2024-07-06 08:03] LABS: MANUAL DIFF FLAG NO
[2024-07-06 08:34] LABS: Basophils Absolute Auto 0.1 X10*3/uL (0.0-0.2); Basophils Percent Auto 0.9 % (0-2); Eosinophils Absolute Auto 0.3 X10*3/uL (0.0-0.4); Eosinophils Percent Auto 3.2 % (0-4); Hematocrit 41.1 % (37.0-47.0); Hemoglobin 13.6 g/dl (12.0-16.0); Imm Gran Abs Auto 0.01 X10*3/uL (0.00-0.03); Imm Gran Pct Auto 0.1 % (0.0-0.4); Lymphocytes Absolute Auto 1.9 X10*3/uL (1.2-4.9); Lymphocytes Percent Auto 24.4 % (20-40); Mean Corpuscular HGB Conc 33.1 g/dl (31.0-35.0); Mean Corpuscular Volume 90.5 fL (80.0-98.0); Mean Platelet Volume 10.1 fL (9.4-12.3); Monocytes Absolute Auto 0.9 X10*3/uL (0.1-1.2); Monocytes Percent Auto 10.8 % (2-11); Neutrophils Absolute Auto 4.8 x10*3/uL (2.0-8.3); Neutrophils Percent Auto 60.6 % (45-73); Platelet Count 209 X10*3/uL (160-400); Red Blood Count 4.54 X10*6/uL (4.20-5.50); Red Cell Distribution Width 13.3 % (11.0-16.0); White Blood Count 7.9 X10*3/uL (4.8-10.8)
[2024-07-06 08:44] LABS: Estimated Average Glucose 126 mg/dL; Hemoglobin A1C 150.6993 umol/L; Total Hemoglobin (HGBA1C) 3615.3595 umol/L
[2024-07-06 09:20] LABS: Alanine Aminotransferase 32 U/L (0-31); Albumin Level 4.3 g/dL (3.5-5.0); Alkaline Phosphatase 59 U/L (39-117); Anion Gap 14 (12-20); Aspartate Amino Transferase 53 U/L (5-31); Bilirubin Total 0.8 mg/dL (0.0-1.0); Blood Urea Nitrogen 18 mg/dL (9-16); Carbon Dioxide 28 mmol/L (22-29); Chloride 99 mmol/L (96-108); Cholesterol 160 mg/dL (<200); Estimated Glomerular Filt Rate > 60; Glucose Random 94 mg/dL (60-115); HDL Cholesterol 84 mg/dL (>40); LDL Cholesterol Calculated 71 mg/dL (<100); Potassium 4.2 mmol/L (3.3-5.1); Sodium 137 mmol/L (135-145); Total Protein 7.4 g/dL (6.5-8.0); Triglycerides 28 mg/dL (<150)
[2024-07-06 09:37] LABS: Free T4 (Free Thyroxine) 1.13 ng/dL (0.71-1.85); Thyroid Stimulating Hormone 1.34 uIU/mL (0.32-4.0); Vitamin D 25-OH Total 48.8 ng/mL (>30)
[2024-07-06 09:55] LABS: Folate 14.3 ng/mL (> or = 4.0); Vitamin B12 > 2000 pg/mL (200-900)
== END 2024-07-06 07:53 | disposition home or self-care (01) ==
LOC: HO.LAB 07:52
PROVIDERS: PCP Internal Medicine
DX: I25.10 Atherosclerotic heart disease of native coronary artery without angina pectoris (principal); E78.00 Pure hypercholesterolemia, unspecified; Z13.1 Encounter for screening for diabetes mellitus
CPT/HCPCS: 36415; 80053; 80061; 82306; 82607; 82746; 83036; 84439; 84443; 85025

== ENCOUNTER 2024-07-10 10:46 | Outpatient (REF) | payer MEDICARE, SELFPAY ==
[2024-07-10 13:06] LABS: Influenza A PCR POSITIVE (Negative); Influenza B PCR NEGATIVE (Negative); Resp Syncy Virus RNA Qual PCR NEGATIVE (Negative); SARS COV2 PCR INHOUSE NEGATIVE (Negative)
== END 2024-07-10 10:47 | disposition home or self-care (01) ==
LOC: HO.LAB 10:46
PROVIDERS: PCP Internal Medicine
DX: R73.02 Impaired glucose tolerance (oral) (principal); E78.00 Pure hypercholesterolemia, unspecified; I25.10 Atherosclerotic heart disease of native coronary artery without angina pectoris; I10 Essential (primary) hypertension; R05.3 Chronic cough; R79.89 Other specified abnormal findings of blood chemistry; R09.89 Other specified symptoms and signs involving the circulatory and respiratory systems; Z79.899 Other long term (current) drug therapy
CPT/HCPCS: 0241U; 96127; 99212

== ENCOUNTER 2024-07-10 10:46 | Outpatient (AMB) | payer MEDICARE, SELFPAY ==
--- NOTE | 2024-07-10 10:48 | MHC.PC.OV ---
Vital Signs 07/10/24 10:50 Height 5 ft 4 in Weight 136 lb 2 oz BMI 23.4 BP 130/64 Blood Pressure Location Lt brachial Position Sitting Pulse 78 Pulse Source Pulse Oximeter Temp 97.1 F Temp Source Temporal Artery Scan Pulse Oximetry (%) 97 Oxygen Delivery Method Room Air Intake Visit Reasons: f/u blood work and HTN Intake Note: Patient is here to follow up on HTN. Fine Arts Model Required: No Patient Coordinator Front Desk: Not Required per policy Accompanied by: Self / Same As Patient Allergies No Known Allergies Allergy (Verified 07/10/24 10:50) Medication List - Last Reconciled 07/10/24 by Nannette Sunshine PA-C amlodipine 10 mg PO DAILY aspirin 81 mg PO DAILY atorvastatin 80 mg PO DAILY 90 days blood pressure monitor (Blood Pressure Kit) As directed calcium carbonate-vitamin D3 600 mg-5 mcg (200 unit) (Calcium 600 + D(3)) 1 cap PO BID cholecalciferol (vitamin D3) 2,000 units PO DAILY lisinopril-hydrochlorothiazide 10-12.5 mg 1 tab PO BID mecobalamin (vitamin B12) 1,000 mcg PO DAILY nitroglycerin (Nitrostat) 0.4 mg sublingual Q5M PRN vitamins A,C,W-iufe-ajyjpk 2,148 mcg-113 mg-45 mg-17.4mg (PreserVision AREDS) 1 tab PO BID Tobacco use date assessed: 07/10/24 Fall risk assessment: 2 + Falls in past year Last assessed Fall Risk: 07/10/24 Dental Screening Dental Screen Date: 07/10/24 Did you have a dental visit in the last 12 months?: Yes Did you have a dental problem in the last 6 months where you did not have access to dental care?: No Was dental information given to patient?: Patient has dentist HPI f/u blood work and HTN HPI Details 79-year-old female with past medical history of impaired glucose tolerance, hypercholesterolemia, coronary artery disease, hypertension last seen 03/2024 coming in for follow up. In review of the notes, patient was seen by Cardiology 04/2024 advised to continue with aggressive medical therapy with low-dose aspirin, high-intensity statin and blood pressure control advised to follow up in 2 years. Her last blood work was reviewed ultrasound was ordered and hepatitis panel added due to elevated LFTs. Presenting with a persistent cough, expressing a primary concern about avoiding bronchitis due to previous recurrent episodes. Initial symptoms mimicked a cold or flu variant, with improvement seen in overall feeling except for the cough persisting post-recovery. [facility] Medical History Numbness of left hand Right hand pain Overweight (BMI 25.0-29.9) Angina pectoris COPD (chronic obstructive pulmonary disease) Osteoarthritis of left knee Osteoporosis Hypercholesterolemia Coronary artery disease Hypertension Surgical History History of carpal tunnel release of both wrists History of laparoscopic cholecystectomy Hx of tonsillectomy History of bilateral hip replacements Family History Father Pancreatic cancer Mother CHF (congestive heart failure) Brother No problems noted. Daughter No problems noted. Daughter No problems noted. Social History Housing: House Alcohol intake: current Alcohol intake frequency: holidays/special occasions only Patient Tobacco Use Status: Never used Tobacco e-Cigarette/Vaping Use: Never Used Second Hand Smoke Exposure: No service: No Current occupational status: retired Current occupational exposures/hazards: No Cognitive needs: No Hearing needs: No Vision needs: Yes (reading glasses) Questionnaire PHQ-9 Over the last 2 weeks, how often have you been bothered by any of the following problems? 1. Little interest or pleasure in doing things: not at all 2. Feeling down, depressed, or hopeless: not at all 3. Trouble falling or staying asleep, or sleeping too much: not at all 4. Feeling tired or having little energy: not at all 5. Poor appetite or overeating: not at all 6. Feeling bad about yourself - or that you are a failure or have let yourself or your family down: not at all 7. Trouble concentrating on things, such as reading the newspaper or watching television: not at all 8. Moving or speaking so slowly that other people could have noticed. Or the opposite - being so fidgety or restless that you have been moving around a lot more than usual: not at all 9. Thoughts that you would be better off or of hurting yourself in some way: not at all Total score: 0 Depression Screening Interpretation: Negative Depression Screening Done: Yes Source: Developed by Drs. Jarrett Horton, Tiana Allen, Barrera Dewey and colleagues, with an educational maxwell from [employer]. Thrive Questionnaire Date Thrive assessed: 07/10/24 I am a: Patient What is your living situation today?: I have a steady place to live Within the past 12 months, did the food you bought not last and you didn't have the money to get more?: Never true Within the past 12 months, did you worry whether your food would run out before you got money to buy more?: Never true Do you have trouble paying for medicines?: No Do you have trouble getting transportation to medical appointments?: No Do you have trouble paying your heating and electricity bill?: No Do you have trouble taking care of your child, family member or friend?: No Do you have trouble with day-to-day activities such as bathing, preparing meals, shopping, managing finances, etc.?: No Are you currently unemployed and looking for a job?: No Are you interested in more education?: No Please select the resources that you would like help with: None Currently or been in a relationship where the following occur: No concerns reported THRIVE Score: 0 AUDIT C Alcohol Use Questionnaire (AUDIT-C) 1. How often do you have a drink containing alcohol?: Never 3. How often do you have six or more drinks on one occasion?: Never Total Score: 0 CHITO-7 AMB Questionnaire CHITO-7 Date CHIOT - 7 assessed: 07/10/24 Feeling nervous, anxious, or on edge: 0 = Not at all Not being able to stop or control worryin = Not at all Worrying too much about different things: 0 = Not at all Trouble relaxin = Not at all Being so restless that it is hard to sit still: 0 = Not at all Becoming easily annoyed or irritable: 0 = Not at all Feeling afraid as if something awful might happen: 0 = Not at all Total CHITO-7 score (0-4 normal; 5-9 mild; 10-14 moderate; 15-21 severe): 0 Source: Developed by Ulysses Mattsonet B.W. Alejandro, Barrera Dewey and colleagues, with an educational maxwell from [employer]. Review of Systems Const Denies body aches, Denies chills, Denies fever(s), Denies headache(s) and Denies poor appetite Eyes Reports no additional complaints ENT Denies dizziness and Denies headache(s) Card Denies chest pain, Denies lightheadedness and Denies dyspnea Resp Reports cough, Denies hemoptysis, Denies excessive phlegm production and Denies dyspnea GI Denies abdominal pain, Denies nausea and Denies vomiting Reports no additional complaints Musc Reports no additional complaints and Denies abnormal gait Skin/Breast Reports system reviewed and no additional complaints, except as documented Neuro Denies abnormal gait, Denies dizziness and Denies headache(s) Psych Reports no additional complaints Physical exam (Primary Care) Vital Signs: Last Vital Signs Temp 97.1 F 07/10/24 10:50 Pulse 78 07/10/24 10:50 BP 130/64 07/10/24 10:50 Pulse Ox 97 07/10/24 10:50 Oxygen Delivery Method Room Air 07/10/24 10:50 BMI result Body Mass Index 23.4 Tobacco/Smoking Status: Tobacco use Status Tobacco use date assessed 07/10/24 07/10/24 10:56 Patient Tobacco Use Status Never used Tobacco 07/10/24 10:56 e-Cigarette/Vaping Use Never Used 07/10/24 10:56 PHQ-9: PHQ-9 Score PHQ-9: Total score 0 07/10/24 11:00 Depression Screening Interpretation: Negative Thrive Assessment: Date of Thrive Assessment Date Thrive assessed 07/10/24 07/10/24 10:56 Currently or been in a relationship where the following occur: No concerns reported Const General: cooperative, healthy appearing, comfortable and no acute distress Orientation/consciousness: patient oriented x3 HENMT Head: Yes normocephalic Ears: hearing grossly normal bilaterally General nose exam: Normal external nose present Eyes General: appearance normal, both eyes and all related structures Conjunctivae: conjunctivae normal Neck Neck: Yes full ROM and Yes no lymphadenopathy Resp Effort & Inspection: normal respiratory effort Auscultation: clear to auscultation bilaterally, no crackles, no rales, no rhonchi and no wheezes Cardio Rate: regular rate Rhythm: regular rhythm Skin General skin exam: no rashes or lesions noted Neuro General: patient oriented x3 Gait exam (Neuro): Normal gait present Extrem General: Yes normal to inspection, Yes full ROM and No edema Psych Affect: normal affect Attitude: cooperative Insight: Good insight present (Psych) Judgement: Good judgement present (Psych) Coding Level of Care Code Est Pt Level 3 (52016) Diagnoses Impaired glucose tolerance R73.02 Hypercholesterolemia E78.00 Coronary artery disease involving [place] coronary artery of [place] heart without angina pectoris I25.10 Associated angina: without angina Coronary Disease-Associated Artery/Lesion type: [place] artery [place] vs. transplanted heart: [place] heart Essential hypertension I10 Hypertension type: essential hypertension Cough R05.9 Elevated LFTs R79.89 Assessment & Plan Assessment & Plan (1) Impaired glucose tolerance: Code(s): R73.02 - Impaired glucose tolerance (oral) Category: Medical Plan: Decrease the amount of carbohydrates such as pasta, bread, rice, and potatoes and limit the amount of sweets. Although fruits are generally healthy they should be eaten in moderation as they are still high in sugar. (2) Hypercholesterolemia: Code(s): E78.00 - Pure hypercholesterolemia, unspecified Category: Medical Plan: Avoid foods that are high in cholesterol such as red meat, fried foods, eggs and baked goods. Triglyceride goal of less than 150 and LDL goal of less than 70. Continue on atorvastatin 80 (3) Coronary artery disease: Comment: September 2021 coronary CTA no significant coronary artery disease moderate stenosis LAD 50% Code(s): I25.10 - Atherosclerotic heart disease of [place] coronary artery without angina pectoris Category: Medical Qualifiers: Associated angina: without angina Coronary Disease-Associated Artery/Lesion type: [place] artery [place] vs. transplanted heart: [place] heart Qualified Code(s): I25.10 - Atherosclerotic heart disease of [place] coronary artery without angina pectoris Plan: Advised tight control of cholesterol with atorvastatin 80, blood pressure management with lisinopril-hydrochlorothiazide and amlodipine, and management of blood sugars. (4) Hypertension: Code(s): I10 - Essential (primary) hypertension Category: Medical Qualifiers: Hypertension type: essential hypertension Qualified Code(s): I10 - Essential (primary) hypertension Plan: Continue on current blood pressure medication. Avoid salt intake and encourage healthy diet and regular exercise. (5) Cough: Code(s): R05.9 - Cough, unspecified Category: Medical Plan: Patient's lungs are clear to auscultation bilaterally. The patient?s cough will be managed with safe cough suppressant medications, considering her cardiovascular health. Since lung examination revealed no abnormalities, she will be monitored for symptom improvement before her scheduled travel. Should the cough persist beyond current mitigation, a Z-Perez an/or steroids may be considered for further intervention. (6) Elevated LFTs: Code(s): R79.89 - Other specified abnormal findings of blood chemistry Category: Medical Plan: Elevated liver enzymes from recent tests necessitate follow-ups including further blood work and an abdominal ultrasound to rule out liver pathology. Plan Patient was informed and verbally consented to the use of an ambient scribe for clinic note documentation during this visit. This note was constructed using voice recognition software. While every effort has been made to ensure accuracy and clerical car checker, still areas may have been included sometimes these areas may affect the content or meeting of the given symptoms. Total time spent caring for the patient today was 20 minutes. This includes time spent before the visit reviewing the chart, time spent during the visit, and time spent after the visit and documentation. Orders: Orders SARS-CoV2/FLU/RSV Today R09.89 - Other specified symptoms and signs involving the circulatory and respiratory systems Medications: New benzonatate 150 mg PO BID PRN 14 caps 0RF cough dextromethorphan-guaifenesin 10-200 mg (Coricidin HBP Chest Congestion-Cough) 1 tab-cap PO Q8H PRN 20 caps 0RF cough
[2024-07-10 10:50] VITALS: BP 130/64; PULSE 78; TEMP 36.2; O2SAT 97; BMI 23.4
--- OUTSIDE RECORDS SUMMARY | 2024-07-10 11:30 | XMS_ITS ---
[facility] Organization [facility] Address [address] [place] [address] Care Team Providers Care Embossing Machine Operator Name Role Phone May Santana Primary Care Provider Haritha Coker [phone] REASON FOR VISIT cx 02/14/23 apt Encounters Encounter Location Date Provider Diagnosis [facility] [address] [place] [address] 02/13/2023 Haritha Joseph Plan Of Treatment No Information Progress Notes * Verona GUTHRIE SDOB:1945 (77 yo F)Acc No.[id number]:02/13/2023 Patient:?Verona Guthrie :1945???Age:77 Y???Sex:Female Address:[address] [place] [address] Renetta PimentelTIFFANIE, [address] * true * Date:? Generated for Printi christel/Alexandrea/eTransmitting on:?07/10/2024 11:30 AM EST
--- OUTSIDE RECORDS SUMMARY | 2024-07-10 11:30 | XMS_ITS | Patient Health Record ---
[facility] Address [address] [place] [address] Care Team Providers Care Tool Machine Setup Operator Name Role Phone May Santana Primary Care Provider Haritha Coker Unavailable [phone] Allergies No Known Allergies Reason For Referral [...] Problem Status W/U Status Risk Notes Problem [id number] Hammer toe of right foot (M20.41) Active confirmed Problem [id number] Hammer toe of left foot (M20.42) Active confirmed Plan Of Treatment No Information Insurance Providers Payer Name Payer Address Payer Phone Subscriber Number Group Number Insured Name Patient Relationship to Insured Coverage Start Date Coverage End Date Medicare National Govt [employer] [address] [facility] [place] [address] [id number] Verona Gutrhie Self - patient is the insured [id number] [facility] [address] [place] [address] [id number] Verona Guthrie Self - patient is the [...]
--- OUTSIDE RECORDS SUMMARY | 2024-07-10 11:30 | XMS_ITS ---
Author Organization [facility] Address [address] [place] [address] Care Team Providers Care Glazing Superintendent Name Role Phone May Santana Primary Care Provider Haritha Coker [phone] Encounters Encounter Location Date Provider Diagnosis [facility] [address] [place] [address] 02/14/2023 Haritha Joseph Plan Of Treatment No Information Progress Notes * Verona GUTHRIE SDOB:1945 (79 yo F)Acc No.[id number]:02/14/2023 Progress Note Patient:?JESUS Verona Chivo Provider:?Haritha Joseph DPM :1945???Age:77 Y???Sex:Female D ate:02/14/2023 Address:[address] [place], [place] [address] [facility] Pcp:May Santana Subjective: * Chief Complaints: * ??? * Medical History:? Objective: * Vitals:? Assessment: Plan: * Treatment: * Images: * The named appointment provid er may or may not be the originator of this progress note, and it is not deemed complete until electronically signed by the appointment provider. Sign off status: Pending * Provider:?Haritha Joseph DPM Date:? Generated for Printi christel/Alexandrea/eTransmitting on:?07/10/2024 11:29 AM EST
== END 2024-07-10 11:21 | disposition home or self-care (01) ==
PROVIDERS: PCP Internal Medicine
DX: R73.02 Impaired glucose tolerance (oral) (principal); E78.00 Pure hypercholesterolemia, unspecified; I25.10 Atherosclerotic heart disease of native coronary artery without angina pectoris; I10 Essential (primary) hypertension; R05.9 Cough, unspecified; R79.89 Other specified abnormal findings of blood chemistry

== ENCOUNTER 2024-08-07 08:14 | Outpatient (REF) | payer MEDICARE, SELFPAY ==
--- NOTE | ~2024-08-07 | US_ITS ---
EXAMINATION: US ABDOMEN COMPLETE CLINICAL INFORMATION: Abnormal findings on blood chemistry.. COMPARISON: CT abdomen dated May 05, 2014 is not available on PACS. TECHNIQUE: Real-time imaging of the abdominal viscera using grayscale and color Doppler technique. FINDINGS: PANCREAS: No peripancreatic fluid collections. ABDOMINAL AORTA: The proximal, mid, and distal segments are normal in caliber. INFERIOR VENA CAVA: Visualized portions are normal. LIVER: Liver measures 12 cm. Normal echotexture. No nodular surface. No gross solid or cystic lesion detected by the dairy technologist. Main portal vein is patent with normal hepatopedal flow direction. No intrahepatic biliary ductal dilatation. GALLBLADDER: Cholecystectomy. COMMON BILE DUCT: 3 mm. RIGHT KIDNEY: 10 cm. Normal echotexture. Renal cortical thickness is normal. No hydronephrosis. No solid or cystic lesion. Normal flow on color Doppler interrogation of the renal hilum. LEFT KIDNEY: 9 cm. Normal echotexture. Renal cortical thickness is normal. No hydronephrosis. No solid or cystic lesion. Normal flow on color Doppler interrogation of the renal hilum.. SPLEEN: Not identified.. FREE FLUID: None. US/US abdomen complete IMPRESSION: Normal exam. Electronically signed by: Jose Sexton MD 08/07/2024 11:25 AM EDT
--- OUTSIDE RECORDS SUMMARY | 2024-08-07 08:39 | XMS_ITS ---
Author Organization [facility] Address [address] [place] [address] Care Team Providers Care Concrete Engineer Name Role Phone May Santana Primary Care Provider Haritha Coker [phone] REASON FOR VISIT cx 02/14/23 apt Encounters Encounter Location Date Provider Diagnosis [facility] [address] [place] [address] 02/13/2023 Haritha Joseph Plan Of Treatment No Information Progress Notes * Verona GUTHRIE SDOB:1945 (77 yo F)Acc No.[id number]:02/13/2023 Patient:?Verona Guthrie :1945???Age:77 Y???Sex:Female Address:[address] [place] [address] Renetta PimentelTIFFANIE, [address] * true * Date:? Generated for Printi ng/Fajessig/eTransmitting on:?08/07/2024 08:39 AM EDT
--- OUTSIDE RECORDS SUMMARY | 2024-08-07 08:39 | XMS_ITS ---
Author Organization [facility] Address [address] [place] [address] Care Team Providers Care Cryptologist Name Role Phone May Santana Primary Care Provider Haritha Coker [phone] Encounters Encounter Location Date Provider Diagnosis [facility] [address] [place] [address] 02/14/2023 Haritha Joseph Plan Of Treatment No Information Progress Notes * Verona GUTHRIE SDOB:1945 (79 yo F)Acc No.[id number]:02/14/2023 Progress Note Patient:?JESUS Verona Chivo Provider:?Haritha Joseph DPM :1945???Age:77 Y???Sex:Female D ate:02/14/2023 Address:[address] [place], [place] [address]Renetta steele [facility] Pcp:May Santana Subjective: * Chief Complaints: * ??? * Medical History:? Objective: * Vitals:? Assessment: Plan: * Treatment: * Images: * The named appointment provid er may or may not be the originator of this progress note, and it is not deemed complete until electronically signed by the appointment provider. Sign off status: Pending * Provider:?Haritha Joseph DPM Date:? Generated for Printi christel/Familena/eTransmitting on:?08/07/2024 08:38 AM EDT
--- OUTSIDE RECORDS SUMMARY | 2024-08-07 08:39 | XMS_ITS | Patient Health Record ---
Author Organization [facility] Address [address] [facility] [place] [address] Care Team Providers Care Sofa Cover Inspector Name Role Phone May Santana Primary Care Provider Haritha Coker Unavailable [phone] Allergies No Known Allergies Reason For Referral [...] Problem Status W/U Status Risk Notes Problem [id number] Hammer toe of right foot (M20.41) Active confirmed Problem [id number] Hammer toe of left foot (M20.42) Active confirmed Plan Of Treatment No Information Insurance Providers Payer Name Payer Address Payer Phone Subscriber Number Group Number Insured Name Patient Relationship to Insured Coverage Start Date Coverage End Date Medicare National Govt [employer] [address] [place] [address] [id number] Verona Guthrie Self - patient is the insured [employer] [facility] [address] [place] [address] [phone] [id number] Verona Guthrie Self - patient is the [...]
== END 2024-08-07 08:15 | disposition home or self-care (01) ==
LOC: HO.US 08:14
PROVIDERS: PCP Internal Medicine
DX: R79.89 Other specified abnormal findings of blood chemistry (principal)
CPT/HCPCS: 76700

== ENCOUNTER → 2024-08-07 08:16 | Outpatient (BNV) | payer MEDICARE, SELFPAY | PROVIDERS: PCP Internal Medicine; Visit Provider Radiology Diagnostic Radiology | DX: R74.01 Elevation of levels of liver transaminase levels (principal) | CPT/HCPCS: 76700 ==

== ENCOUNTER 2024-08-20 10:17 | Outpatient (AMB) | payer MEDICARE, SELFPAY ==
--- NOTE | 2024-08-20 10:34 | A.OFFPC_ITS ---
Vital Signs 08/20/24 10:36 Height 5 ft 4 in Weight 141 lb 8 oz BMI 24.3 BP 120/62 Blood Pressure Location Lt brachial Position Sitting Pulse 68 Pulse Source Pulse Oximeter Temp 97.3 F Temp Source Temporal Artery Scan Pulse Oximetry (%) 97 Oxygen Delivery Method Room Air Intake Visit Reasons: CATARACT SURGERY L EYE 09/02, RIGHT EYE 09/16 Intake Note: Patient is here for a Pre-op for Cataract surgery scheduled with Dr Horn on left 09/02/24, right 09/16/24. Grain Buyer Required: No Crime Scene Investigator: Not Required per policy Accompanied by: Self / Same As Patient Allergies No Known Allergies Allergy (Verified 08/20/24 10:46) Medication List - Last Reconciled 08/20/24 by Nannette Sunshine PA-C amlodipine 10 mg PO DAILY aspirin 81 mg PO DAILY atorvastatin 80 mg PO DAILY 90 days blood pressure monitor (Blood Pressure Kit) As directed calcium carbonate-vitamin D3 600 mg-5 mcg (200 unit) (Calcium 600 + D(3)) 1 cap PO BID cholecalciferol (vitamin D3) 2,000 units PO DAILY lisinopril-hydrochlorothiazide 10-12.5 mg 1 tab PO BID mecobalamin (vitamin B12) 1,000 mcg PO DAILY nitroglycerin (Nitrostat) 0.4 mg sublingual Q5M PRN vitamins A,C,J-xboh-kyltgh 2,148 mcg-113 mg-45 mg-17.4mg (PreserVision AREDS) 1 tab PO BID Tobacco use date assessed: 08/20/24 Fall risk assessment: No Falls in past year Last assessed Fall Risk: 08/20/24 Dental Screening Dental Screen Date: 07/10/24 HPI CATARACT SURGERY L EYE 09/02, RIGHT EYE 09/16 HPI Details 79-year-old female with past medical his tory of impaired glucose tolerance, hypercholesterolemia, coronary artery disease, hypertension last seen 06/2024 coming in for preoperative visit. Patient is scheduled to have cataract surgery with Dr. Horn left eye 09/02/2024 and right eye 09/16/2024. CAD: Currently following with feed mixer every 2 years EKG completed 04/2024 reviewed by the feed mixer no further workup needed at that time. Aspirin and atorvastatin daily. Hypertension: Blood pressure well managed with amlodipine 10 mg, lisinopril- hydrochlorothiazide 10-12.5 mg Impaired glucose tolerance: Last A1c 6.0% not currently on medical management. does have history of knee replacement and has to take amoxicillin prior to surgery per her orthopedic surgeon. [facility] Medical History Numbness of left hand Right hand pain Overweight (BMI 25.0-29.9) Angina pectoris COPD (chronic obstructive pulmonary disease) Osteoarthritis of left knee Osteoporosis Hypercholesterolemia Coronary artery disease Hypertension Surgical History History of carpal tunnel release of both wrists History of laparoscopic cholecystectomy Hx of tonsillectomy History of bilateral hip replacements Family History Father Pancreatic cancer Mother CHF (congestive heart failure) Brother No problems noted. Daughter No problems noted. Daughter No problems noted. Social History Housing: House Alcohol intake: current Alcohol intake frequency: holidays/special occasions only Patient Tobacco Use Status: Never used Tobacco e-Cigarette/Vaping Use: Never Used Second Hand Smoke Exposure: No service: No Current occupational status: retired Current occupational exposures/hazards: No Cognitive needs: No Hearing needs: No Vision needs: Yes (reading glasses) Questionnaire Thrive Questionnaire Date Thrive assessed: 07/10/24 CHITO-7 AMB Questionnaire CHITO-7 Date CHITO - 7 assessed: 07/10/24 Source: Developed by Drs. Jarrett Horton, Tiana Allen, Barrera Dewey and colleagues, with an educational maxwell from [employer]. Review of Systems Const Denies body aches, Denies chills, Denies fever(s) and Denies headache(s) Eyes Reports no additional complaints ENT Denies dizziness and Denies headache(s) Card Details: does have intermittent angina last took Nitro 3 weeks ago - monitored by cardiology Denies chest pain, Denies syncope, Denies edema, Denies irregular heart rhythm, Denies lightheadedness and Denies dyspnea Resp Denies dyspnea GI Denies abdominal pain, Denies constipation, Denies diarrhea, Denies nausea and Denies vomiting Reports no additional complaints Musc Reports no additional complaints and Denies abnormal gait Skin/Breast Reports system reviewed and no additional complaints, except as documented Neuro Denies abnormal gait, Denies dizziness, Denies syncope and Denies headache(s) Psych Reports no additional complaints Physical exam (Primary Care) Vital Signs: Last Vital Signs Temp 97.3 F 08/20/24 10:36 Pulse 68 08/20/24 10:36 BP 120/62 08/20/24 10:36 Pulse Ox 97 08/20/24 10:36 Oxygen Delivery Method Room Air 08/20/24 10:36 BMI result Body Mass Index 24.3 Tobacco/Smoking Status: Tobacco use Status Tobacco use date assessed 08/20/24 08/20/24 10:38 Patient Tobacco Use Status Never used Tobacco 08/20/24 10:38 e-Cigarette/Vaping Use Never Used 08/20/24 10:38 Thrive Assessment: Date of Thrive Assessment Date Thrive assessed 07/10/24 08/20/24 10:38 Const General: cooperative, healthy appearing, comfortable and no acute distress Orientation/consciousness: patient oriented x3 HENMT Head: Yes normocephalic Ears: hearing grossly normal bilaterally General nose exam: Normal external nose present Eyes General: appearance normal, both eyes and all related structures Conjunctivae: conjunctivae normal Neck Neck: Yes full ROM and Yes no lymphadenopathy Resp Effort & Inspection: normal respiratory effort Auscultation: clear to auscultation bilaterally, no crackles, no rales, no rhonchi and no wheezes Cardio Rate: regular rate Rhythm: regular rhythm Skin General skin exam: no rashes or lesions noted Neuro General: patient oriented x3 Gait exam (Neuro): Normal gait present Extrem General: Yes normal to inspection, Yes full ROM and No edema Psych Affect: normal affect Attitude: cooperative Insight: Good insight present (Psych) Judgement: Good judgement present (Psych) Coding Level of Care Code Est Pt Level 3 (37453) Diagnoses Pre-op exam Z01.818 Assessment & Plan Assessment & Plan (1) Pre-op exam: Code(s): Z01.818 - Encounter for other preprocedural examination Category: Medical Plan: Regarding preop clearance, the patient is at moderate risk for proposed surgery. Reviewed with the patient that no surgery is completely free of risk and that this examination is to assist the surgeon in reviewing informed consent. Advised patient that all medications may be taken up until the day of the procedure and resumed normally after the procedure has been completed unless otherwise instructed by corporate security manager. As modern cataract surgeries rarely cause any bleeding, he is advised that he should continue on his low dose Aspirin 81 mg QD but is advised that I will leave it up to the discretion of the corporate security manager performing the procedure if he is comfortable with patient being on ASA or not for his eye surgery EKG 04/2024 and blood work 06/2024 evaluated. No further workup needed at this time and may proceed with the contemplated procedure. Thank you very much for letting me participate in the care of this patient Plan This note was constructed using voice recognition software. While every effort has been made to ensure accuracy and registered medical transcriptionist, still areas may have been included sometimes these areas may affect the content or meeting of the given symptoms. Total time spent caring for the patient today was 20 minutes. This includes time spent before the visit reviewing the chart, time spent during the visit, and time spent after the visit and documentation. Orders: Orders Liver Panel Today R79.89 - Other specified abnormal findings of blood chemistry Medications: Discontinued dextromethorphan-guaifenesin 10-200 mg (Coricidin HBP Chest Congestion-Cough) Discontinued Reason: Patient no longer taking 1 tab-cap PO Q8H PRN 20 caps 0RF cough oseltamivir (Tamiflu) Discontinued Reason: Patient no longer taking 75 mg PO BID 5 days 10 caps 0 RF
[2024-08-20 10:36] VITALS: BP 120/62; PULSE 68; TEMP 36.3; O2SAT 97; BMI 24.3
--- OUTSIDE RECORDS SUMMARY | 2024-08-20 12:04 | XMS_ITS | Patient Health Record ---
[facility] Address [address] [facility] [address] Care Team Providers Care Pattern Chart Writer Name Role Phone May Santana Primary Care Provider Haritha Coker Unavailable [phone] Allergies No Known Allergies Reason For Referral [...] Problem Status W/U Status Risk Notes Problem [id number] Hammer toe of right foot (M20.41) Active confirmed Problem [id number] Hammer toe of left foot (M20.42) Active confirmed Plan Of Treatment No Information Insurance Providers Payer Name Payer Address Payer Phone Subscriber Number Group Number Insured Name Patient Relationship to Insured Coverage Start Date Coverage End Date Medicare National Govt [employer] [address] [place] [address] [id number] Verona Guthrie Self - patient is the insured [employer] [facility] [address] [place] [address] [id number] Verona Guthrie Self - patient is the [...]
== END 2024-08-20 11:05 | disposition home or self-care (01) ==
LOC: HO.HMCH 10:17
PROVIDERS: PCP Internal Medicine
DX: Z01.818 Encounter for other preprocedural examination (principal)

== ENCOUNTER → 2024-08-20 10:17 | Outpatient (BNVA) | payer MEDICARE, SELFPAY | PROVIDERS: PCP Internal Medicine | DX: Z01.818 Encounter for other preprocedural examination (principal); H26.9 Unspecified cataract | CPT/HCPCS: 99212 ==

== ENCOUNTER 2024-09-02 05:49 | Day surgery (SDC) | payer MEDICARE, SELFPAY ==
--- OUTSIDE RECORDS SUMMARY | 2024-07-05 11:31 | XMS_ITS | Patient Health Record ---
Author [facility] Address [address] [facility] [place] [address] Care Team Providers Care Rn Visiting Name Role Phone May Santana Primary Care Provider Haritha Coker Unavailable [phone] Allergies No Known Allergies Reason For Referral [...] Problem Status W/U Status Risk Notes Problem [id number] Hammer toe of right foot (M20.41) Active confirmed Problem [id number] Hammer toe of left foot (M20.42) Active confirmed Plan Of Treatment No Information Insurance Providers Payer Name Payer Address Payer Phone Subscriber Number Group Number Insured Name Patient Relationship to Insured Coverage Start Date Coverage End Date Medicare National Govt [employer] [address] [facility] [place] [address] [id number] Verona Guthrie Self - patient is the insured [employer] [facility] [address] [place] [address] [id number] Verona Guthrie Self - patient is the [...]
--- OUTSIDE RECORDS SUMMARY | 2024-07-05 11:31 | XMS_ITS ---
Author Organization [facility] Address [address] [place] [address] Care Team Providers Care Machine Ii Engraver Name Role Phone May Santana Primary Care Provider Haritha Coker [phone] Encounters Encounter Location Date Provider Diagnosis [facility] [address] [place] [address] 02/14/2023 Haritha Joseph Plan Of Treatment No Information Progress Notes * Verona GUTHRIE SDOB:1945 (79 yo F)Acc No.[id number]:02/14/2023 Progress Note Patient:?JESUS Verona Chivo Provider:?Haritha Joseph DPM :1945???Age:77 Y???Sex:Female D ate:02/14/2023 Address:[address] [place], [place] [address]Renetta steele [facility] Pcp:May Santana Subjective: * Chief Complaints: * ??? * Medical History:? Objective: * Vitals:? Assessment: Plan: * Treatment: * Images: * The named appointment provid er may or may not be the originator of this progress note, and it is not deemed complete until electronically signed by the appointment provider. Sign off status: Pending * Provider:?Haritha Joseph DPM Date:? Generated for Printi christel/Alexandrea/eTransmitting on:?07/05/2024 11:31 AM EST
--- OUTSIDE RECORDS SUMMARY | 2024-07-05 11:32 | XMS_ITS ---
Author Organization [facility] Address [address] [place] [address] Care Team Providers Care Critical Care Educator Name Role Phone May Santana Primary Care Provider Haritha Coker [phone] REASON FOR VISIT cx 02/14/23 apt Encounters Encounter Location Date Provider Diagnosis [facility] [address] [place] [address] 02/13/2023 Haritha Joseph Plan Of Treatment No Information Progress Notes * Verona GUTHRIE SDOB:1945 (77 yo F)Acc No.[id number]:02/13/2023 Patient:?Verona Guthrie :1945???Age:77 Y???Sex:Female Address:[address] [place] [address] [place], [address] * true * Date:? Generated for Printi christel/Alexandrea/eTransmitting on:?07/05/2024 11:31 AM EST
[2024-08-26 15:14] VITALS: BMI 24.3
[2024-09-02 06:19] VITALS: BP 143/55; PULSE 78; RESP 14; TEMP 36.7; O2SAT 97
[2024-09-02] MEDS: Tetracaine HCl/PF 0.5% Oph Sol 4 ML DROPS 1 DROP EYE-LEFT (06:32)
[2024-09-02] MEDS: Tropicamide 1 % Ophth Sol 3 ML BTL 1 DROP EYE-LEFT ×3 (06:36→06:42)
[2024-09-02] MEDS: Cyclopentolate 1 % Ophth Sol 2 ML DRPBTL 1 DROP EYE-LEFT ×3 (06:36→06:42)
[2024-09-02] MEDS: Phenylephrine HCL 2.5% Oph SoL 2 ML BOTTLE 1 DROP EYE-LEFT ×3 (06:37→06:43)
[2024-09-02] MEDS: Ketorolac Tromethamine 0.5% Op 5 ML DROPS 1 DROP EYE-LEFT ×3 (06:37→06:43)
[2024-09-02] MEDS: Lactated Ringers 500 ML 50 ML IV (06:39)
--- NOTE | 2024-09-02 07:12 | MHC.SHP ---
Pre-Procedural Eval Section A - 24 Hr Update-Section A only Date of Service: 09/02/24 The patient is an INPATIENT: No Changes since office visit: No Cold of Flu in the past 2 weeks, No New Medical Problems, No Changes in Medication and No Patient answered all questions The patient has been examined within 24 hours of the surgical procedure. The History & Physical has been completed within 30 days and I have reviewed it.: Yes Section B - Complete if H&P > 30 days Chief Complaint: Age-related nuclear cataract, left eye Allergies: Allergies Allergy/AdvReac Type Severity Reaction Status Date / Time No Known Allergies Allergy Verified 09/02/24 06:22 Plan Diagnosis/Plan: Unchanged I have reviewed the history and physical and performed a pertinent physical examination on my patient. No changes have occurred unless specified. Time Spent With Patient Time: Total time managing care of this patient today ____ minutes.
--- NOTE | 2024-09-02 07:13 | HO.PNOPHT ---
Ophthalmology Procedure Procedure Date of Service: 09/02/24 Ophthalmology Viscoelastic: Healon Duet Dual Pack Pro Ophthalmology Lenses: IOL Acrysof MP - [id number] (22) Procedure Notes: PREOPERATIVE DIAGNOSIS: Decreased visual acuity left eye secondary to cataract POSTOPERATIVE DIAGNOSIS: Same PROCEDURE: Left cataract extraction with intraocular lens insertion SURGEON: Deshawn Horn M.D. ANESTHESIA: Topical/MAC ESTIMATED BLOOD LOSS: None COMPLICATIONS: None After obtaining informed consent, the patient was brought to the operation room suite and placed in the supine position. After adequate sedation per anesthesia, topical drops of Tetracaine were given to the left eye. The eye was then prepped and draped in the usual sterile fashion. The operating room microscope was then positioned over the operative eye and a lid speculum placed. A paracentesis was created. Viscoelastic was then instilled into the anterior chamber. A three plane incision was then created temporally, utilizing a 2.85 mm keratome. Capsulotomy forceps were then utilized to create a circular tear capsulotomy. Hydrodissection and hydrodelineation were carried out until adequate mobilization of the nucleus occurred. Phacoemulsification was then utilized to remove the dense central nucleus followed by removal of the cortical material utilizing the automated aspiration irrigation unit. Viscoat elastic was instilled into the posterior capsular bag followed by placement of a posterior chamber intraocular lens without difficulty. The residual Viscoat elastic was then removed utilizing the automated IA machine. The wound was check and found to be watertight. The patient tolerated the procedure well and the lid speculum was removed. Intracameral injection of Vigamox 0.1 mL followed by a subtenon injection of Kenalog-40 0.2 mL were administered. The patient will be seen in the a.m.
--- NOTE | 2024-09-02 07:32 | HO.ANESPROP2 ---
HPI - Anesthesia Eval Consult details Narrative: 79 yo F presenting for left cataract extraction IOL insertion. PONV PMFSH Active Problems Active Problems: All Active Problems Pre-op exam (Acute) Influenza A (Acute) Cough (Acute) Elevated LFTs (Acute) Impaired glucose tolerance (Acute) Trigger finger, left (Acute) Ulnar neuropathy of left upper extremity (Acute) Impacted cerumen of both ears (Acute) Impacted cerumen of right ear (Acute) Medicare annual wellness visit, subsequent (Acute) Bicipital tendonitis of right shoulder (Acute) Insomnia (Acute) Ingrowing left great toenail (Acute) History of arthroplasty of left knee (Acute) Vitamin B 12 deficiency (Acute) Impaired fasting blood sugar (Acute) Left carpal tunnel syndrome (Acute) Radicular pain in left arm (Acute) Upper back pain on left side (Acute) Ulnar neuropathy (Acute) Hypercholesterolemia (Acute) Coronary artery disease (Acute) Hypertension (Acute) Past Medical History Medical History (Updated 08/26/24 @ 15:19 by Lupe Carmen RN) PONV (postoperative nausea and vomiting) Macular degeneration Numbness of left hand Angina pectoris COPD (chronic obstructive pulmonary disease) Overweight (BMI 25.0-29.9) Osteoarthritis of left knee Osteoporosis Hypercholesterolemia Coronary artery disease Hypertension Family History Family History Father Pancreatic cancer Mother CHF (congestive heart failure) Brother No problems noted. Daughter No problems noted. Daughter No problems noted. Family history of problems with anesthesia: No Surgical History Surgical History History of carpal tunnel release of both wrists History of laparoscopic cholecystectomy Hx of tonsillectomy History of bilateral hip replacements History of Problems with Anesthesia: Yes (PONV) Social History Social History Housing: House Are you a primary healthcare economics manager to a significant other at home: No Do you presently have visiting nurse or other home services: No Alcohol intake: current Alcohol intake frequency: former alcohol drinker Patient Tobacco Use Status: Never used Tobacco e-Cigarette/Vaping Use: Never Used Second Hand Smoke Exposure: No Use of substances other than those prescribed or required for medical reasons: No Have you been hit, kicked, punched, or otherwise hurt by someone within the past year? If so, by whom?: No Spiritual Healthcare Practices: no Worship Healthcare Practices: no Cultural Healthcare Practices: no Are you DNR?: No Advance Directives: Yes Advance Directives Information Provided: Yes Advance Directives on File: Yes Advance Directives Date on File: 07/10/13 FDLMP: n/a Poor oral hygiene: No service: No Current occupational status: retired Current occupational exposures/hazards: No Cognitive needs: No Hearing needs: No Vision needs: Yes (reading glasses) Meds Allergies Allergy/AdvReac Type Severity Reaction Status Date / Time No Known Allergies Allergy Verified 09/02/24 06:22 Active Medications: Current Medications Albuterol Sulfate (Albuterol Sulfate (0.083%) 2.5 Mg/3 Ml Vial.Neb) 2.5 mg INHALE ONCE PRN PRN Reason: Shortness of Breath/Wheezing Lactated Ringer's (Lr) 500 mls @ 50 mls/hr IV .Q10H LINETTE Stop: 09/02/24 16:44 Last Admin: 09/02/24 06:39 Dose: 50 mls/hr Povidone Iodine (Povidone Iodine 5 % Ophth Soln 30 Ml Bottle) 1 appl EYE-LEFT PREOP PRN PRN Reason: Pre-Op Surgical Implant Prophy Povidone Iodine (Povidone Iodine 5 % Ophth Soln 30 Ml Bottle) 1 appl EYE-LEFT PREOP PRN PRN Reason: Pre-Op Surgical Implant Prophy Home Medications ?Medication ?Instructions ?Recorded ?Confirmed ?Last Taken ?Type calcium 600 mg (as 1 cap PO BID 08/11/20 08/26/24 Unknown History carbonate)-vitamin D3 5 mcg (200 unit) capsule (Calcium 600 + D(3)) vitamins A,C,R-cfto-ylwkqp 2,148 1 tab PO BID 08/11/20 08/26/24 Unknown History mcg-113 mg-45 mg-17.4 mg tablet (PreserVision AREDS) mecobalamin (vitamin B12) 1,000 1,000 mcg PO DAILY 07/22/21 08/26/24 Unknown History mcg chewable tablet aspirin 81 mg tablet,delayed 81 mg PO DAILY 12/09/21 08/26/24 Unknown History release Exam Exam Date and Time: 09/02/24 0715 Height,Weight and Vital Signs: Height 5 ft 4 in Weight 64.183 kg Last Vital Signs Temp 98.0 F 09/02/24 06:19 Pulse 78 09/02/24 06:19 Resp 14 09/02/24 06:19 BP 143/55 H 09/02/24 06:19 Pulse Ox 97 09/02/24 06:19 O2 Del Method Room Air 09/02/24 06:19 Airway Mallampati Class: II TM Dist: >3cm Neck ROM: Full Loose/Missing/Broken Teeth: No (patient denies any loose or broken teeth) Heart: S1S2 Lungs: CTAB Assessment and Plan Assessment Anesthesia Assessment: Anesthesia Plan Discussed and Chart Reviewed Final Anesthetic Review Family History of Problems with Anesthesia: No History of Problems with Anesthesia: Yes (PONV) NPO: Yes ASA Class: III Final Preanesthetic Review: No Changes in Pt Med Stat, Meds/Allgs Chart Reviewed, Consent Obtained/Reviewed and Anes Risks/Benef Reviewed Patient Risk: Intermediate Procedure Risk: Low Anesthetic Plan Anesthetic Plan: MAC: and Agree w/ Assess. and Plan Disposition: Standard PACU
[2024-09-02 07:46] VITALS: BP 130/51; PULSE 72; RESP 17; TEMP 36.3; O2SAT 98
== END 2024-09-02 07:54 | disposition home or self-care (01) ==
PROVIDERS: PCP Internal Medicine; Visit Provider Ophthalmology
PROC: (CPT 66985; principal; 2024-09-02 07:30)
DX: H25.12 Age-related nuclear cataract, left eye (principal); H52.4 Presbyopia; H35.3220 Exudative age-related macular degeneration, left eye, stage unspecified; I25.10 Atherosclerotic heart disease of native coronary artery without angina pectoris; I20.9 Angina pectoris, unspecified; I10 Essential (primary) hypertension; E78.00 Pure hypercholesterolemia, unspecified; R73.02 Impaired glucose tolerance (oral); J44.9 Chronic obstructive pulmonary disease, unspecified; M81.0 Age-related osteoporosis without current pathological fracture; R20.0 Anesthesia of skin; Z96.643 Presence of artificial hip joint, bilateral; Z79.82 Long term (current) use of aspirin; Z79.899 Other long term (current) drug therapy; Z90.49 Acquired absence of other specified parts of digestive tract; Z98.890 Other specified postprocedural states; H18.413 Arcus senilis, bilateral
CPT/HCPCS: 66984; J2003; J2250; J3301; V2630

== ENCOUNTER 2024-09-16 05:52 | Day surgery (SDC) | payer MEDICARE, SELFPAY ==
--- OUTSIDE RECORDS SUMMARY | 2024-07-18 13:02 | XMS_ITS ---
Author Organization [facility] Address [address] [place] [address] Care Team Providers Care Sales And Service Consultant Name Role Phone May Santana Primary Care Provider Haritha Coker [phone] REASON FOR VISIT cx 02/14/23 apt Encounters Encounter Location Date Provider Diagnosis [facility] [address] [place] [address] 02/13/2023 Haritha Joseph Plan Of Treatment No Information Progress Notes * Verona GUTHRIE SDOB:1945 (77 yo F)Acc No.[id number]:02/13/2023 Patient:?Verona Guthrie :1945???Age:77 Y???Sex:Female Address:[address] [place] [address] Renetta PimentelTIFFANIE, [address] * true * Date:? Generated for Printi christel/Alexandrea/eTransmitting on:?07/18/2024 01:02 PM EST
--- OUTSIDE RECORDS SUMMARY | 2024-07-18 13:02 | XMS_ITS | Patient Health Record ---
[facility] Address [address] [place] [address] Care Team Providers Care Advance Seal Delivery System Maintainer Name Role Phone May Santana Primary Care Provider Haritha Coker Unavailable [phone] Allergies No Known Allergies Reason For Referral [...] Problem Status W/U Status Risk Notes Problem [id number] Hammer toe of right foot (M20.41) Active confirmed Problem [id number] Hammer toe of left foot (M20.42) Active confirmed Plan Of Treatment No Information Insurance Providers Payer Name Payer Address Payer Phone Subscriber Number Group Number Insured Name Patient Relationship to Insured Coverage Start Date Coverage End Date Medicare National Govt [employer] [address] [place] [address] [id number] Verona Guthrie Self - patient is the insured [id number] [facility] [address] [place] [address] [id number] Verona Guthrie Self - patient is the [...]
--- OUTSIDE RECORDS SUMMARY | 2024-07-18 13:02 | XMS_ITS ---
Author Organization [facility] Address [address] [place] [address] Care Team Providers Care Director Of Procurement Name Role Phone May Santana Primary Care Provider Haritha Coker [phone] Encounters Encounter Location Date Provider Diagnosis [facility] [address] [place] [address] 02/14/2023 Haritha Joseph Plan Of Treatment No Information Progress Notes * Verona GUTHRIE SDOB:1945 (79 yo F)Acc No.[id number]:02/14/2023 Progress Note Patient:?JESUS Verona Chivo Provider:?Haritha Joseph DPM :1945???Age:77 Y???Sex:Female D ate:02/14/2023 Address:[address] [place], [place] [address] [facility] Pcp:May Santana Subjective: * Chief Complaints: * ??? * Medical History:? Objective: * Vitals:? Assessment: Plan: * Treatment: * Images: * The named appointment provid er may or may not be the originator of this progress note, and it is not deemed complete until electronically signed by the appointment provider. Sign off status: Pending * Provider:?Haritha Joseph DPM Date:? Generated for Printi christel/Alexandrea/eTransmitting on:?07/18/2024 01:01 PM EST
[2024-08-26 15:17] VITALS: BMI 24.3
--- NOTE | 2024-09-12 14:32 | P.CONAN_ITS ---
Documented by User: Roberta Hager NP 09/12/24 14:33 HPI - Anesthesia Eval Consult details Narrative: 79yo F for Right Cataract Extraction IOL Insertion Left eye 09/02/24: Midaz 1 PMFSH Active Problems Active Problems: All Active Problems Pre-op exam (Acute) Influenza A (Acute) Cough (Acute) Elevated LFTs (Acute) Impaired glucose tolerance (Acute) Trigger finger, left (Acute) Ulnar neuropathy of left upper extremity (Acute) Impacted cerumen of both ears (Acute) Impacted cerumen of right ear (Acute) Medicare annual wellness visit, subsequent (Acute) Bicipital tendonitis of right shoulder (Acute) Insomnia (Acute) Ingrowing left great toenail (Acute) History of arthroplasty of left knee (Acute) Vitamin B 12 deficiency (Acute) Impaired fasting blood sugar (Acute) Left carpal tunnel syndrome (Acute) Radicular pain in left arm (Acute) Upper back pain on left side (Acute) Ulnar neuropathy (Acute) Hypercholesterolemia (Acute) Coronary artery disease (Acute) Hypertension (Acute) Past Medical History Medical History (Updated 08/26/24 @ 15:19 by Lupe Carmen RN) PONV (postoperative nausea and vomiting) Macular degeneration Numbness of left hand Angina pectoris COPD (chronic obstructive pulmonary disease) Overweight (BMI 25.0-29.9) Osteoarthritis of left knee Osteoporosis Hypercholesterolemia Coronary artery disease Hypertension Family History Family History Father Pancreatic cancer Mother CHF (congestive heart failure) Brother No problems noted. Daughter No problems noted. Daughter No problems noted. Family history of problems with anesthesia: No Surgical History Surgical History History of carpal tunnel release of both wrists History of laparoscopic cholecystectomy Hx of tonsillectomy History of bilateral hip replacements History of Problems with Anesthesia: Yes (PONV) Social History Social History Housing: House Are you a primary home health care respiratory therapist to a significant other at home: No Do you presently have visiting nurse or other home services: No Alcohol intake: current Alcohol intake frequency: former alcohol drinker Patient Tobacco Use Status: Never used Tobacco e-Cigarette/Vaping Use: Never Used Second Hand Smoke Exposure: No Use of substances other than those prescribed or required for medical reasons: No Have you been hit, kicked, punched, or otherwise hurt by someone within the past year? If so, by whom?: No Spiritual Healthcare Practices: no Shinto Healthcare Practices: no Cultural Healthcare Practices: no Are you DNR?: No Advance Directives: Yes Advance Directives Information Provided: Yes Advance Directives on File: Yes Advance Directives Date on File: 07/10/13 FDLMP: n/a Poor oral hygiene: No service: No Current occupational status: retired Current occupational exposures/hazards: No Cognitive needs: No Hearing needs: No Vision needs: Yes (reading glasses) Meds Allergies Allergy/AdvReac Type Severity Reaction Status Date / Time No Known Allergies Allergy Verified 09/02/24 06:22 Home Medications ?Medication ?Instructions ?Recorded ?Confirmed ?Last Taken ?Type calcium 600 mg (as 1 cap PO BID 08/11/20 08/26/24 Unknown History carbonate)-vitamin D3 5 mcg (200 unit) capsule (Calcium 600 + D(3)) vitamins A,C,Y-mwvl-xtgzeo 2,148 1 tab PO BID 08/11/20 08/26/24 Unknown History mcg-113 mg-45 mg-17.4 mg tablet (PreserVision AREDS) mecobalamin (vitamin B12) 1,000 1,000 mcg PO DAILY 07/22/21 08/26/24 Unknown History mcg chewable tablet aspirin 81 mg tablet,delayed 81 mg PO DAILY 12/09/21 08/26/24 Unknown History release Exam Height,Weight and Vital Signs: Height 5 ft 4 in Weight 64.183 kg Assessment and Plan Assessment Anesthesia Assessment: Chart Reviewed Final Anesthetic Review Family History of Problems with Anesthesia: No History of Problems with Anesthesia: Yes (PONV) Documented by User: Mary See MD 09/16/24 07:17 [facility] Past Medical History Medical History (Updated 08/26/24 @ 15:19 by Lupe Carmen RN) PONV (postoperative nausea and vomiting) Macular degeneration Numbness of left hand Angina pectoris COPD (chronic obstructive pulmonary disease) Overweight (BMI 25.0-29.9) Osteoarthritis of left knee Osteoporosis Hypercholesterolemia Coronary artery disease Hypertension Family History Family History Father Pancreatic cancer Mother CHF (congestive heart failure) Brother No problems noted. Daughter No problems noted. Daughter No problems noted. Surgical History Surgical History History of carpal tunnel release of both wrists History of laparoscopic cholecystectomy Hx of tonsillectomy History of bilateral hip replacements Social History Social History Housing: House Are you a primary home health care respiratory therapist to a significant other at home: No Do you presently have visiting nurse or other home services: No Alcohol intake: current Alcohol intake frequency: former alcohol drinker Patient Tobacco Use Status: Never used Tobacco e-Cigarette/Vaping Use: Never Used Second Hand Smoke Exposure: No Use of substances other than those prescribed or required for medical reasons: No Have you been hit, kicked, punched, or otherwise hurt by someone within the past year? If so, by whom?: No Spiritual Healthcare Practices: no Shinto Healthcare Practices: no Cultural Healthcare Practices: no Are you DNR?: No Advance Directives: Yes Advance Directives Information Provided: Yes Advance Directives on File: Yes Advance Directives Date on File: 07/10/13 FDLMP: n/a Poor oral hygiene: No service: No Current occupational status: retired Current occupational exposures/hazards: No Cognitive needs: No Hearing needs: No Vision needs: Yes (reading glasses) Meds Allergies Allergy/AdvReac Type Severity Reaction Status Date / Time No Known Allergies Allergy Verified 09/02/24 06:22 Home Medications ?Medication ?Instructions ?Recorded ?Confirmed ?Last Taken ?Type calcium 600 mg (as 1 cap PO BID 08/11/20 08/26/24 Unknown History carbonate)-vitamin D3 5 mcg (200 unit) capsule (Calcium 600 + D(3)) vitamins A,C,D-qltz-ctjsip 2,148 1 tab PO BID 08/11/20 08/26/24 Unknown History mcg-113 mg-45 mg-17.4 mg tablet (PreserVision AREDS) mecobalamin (vitamin B12) 1,000 1,000 mcg PO DAILY 07/22/21 08/26/24 Unknown History mcg chewable tablet aspirin 81 mg tablet,delayed 81 mg PO DAILY 12/09/21 08/26/24 Unknown History release Exam Airway Mallampati Class: II (caps all over laterally) TM Dist: >3cm Neck ROM: Full Heart: rrr Lungs: cta Assessment and Plan Assessment Anesthesia Assessment: Anesthesia Plan Discussed Final Anesthetic Review NPO: Yes ASA Class: II Final Preanesthetic Review: No Changes in Pt Med Stat, Meds/Allgs Chart Reviewed and Consent Obtained/Reviewed Patient Risk: Low Procedure Risk: Low Anesthetic Plan Anesthetic Plan: MAC: Disposition: Standard PACU
[2024-09-16 06:51] VITALS: BP 109/63; PULSE 71; RESP 16; TEMP 36.9; O2SAT 97; BMI 23.0
[2024-09-16] MEDS: Tetracaine HCl/PF 0.5% Oph Sol 4 ML DROPS 1 DROP EYE-RIGHT (06:54)
[2024-09-16] MEDS: Cyclopentolate 1 % Ophth Sol 2 ML DRPBTL 1 DROP EYE-RIGHT ×3 (07:00→07:08)
[2024-09-16] MEDS: Lactated Ringers 500 ML 50 ML IV (07:00)
[2024-09-16] MEDS: Tropicamide 1 % Ophth Sol 3 ML BTL 1 DROP EYE-RIGHT ×3 (07:01→07:09)
[2024-09-16] MEDS: Ketorolac Tromethamine 0.5% Op 5 ML DROPS 1 DROP EYE-RIGHT ×3 (07:02→07:10)
[2024-09-16] MEDS: Phenylephrine HCL 2.5% Oph SoL 2 ML BOTTLE 1 DROP EYE-RIGHT ×3 (07:03→07:11)
--- NOTE | 2024-09-16 07:33 | P.PCNO_ITS ---
Ophthalmology Procedure Procedure Date of Service: 09/16/24 Ophthalmology Viscoelastic: Healon Duet Dual Pack Pro Ophthalmology Lenses: IOL Acrysof MP - [id number] (22.5) Procedure Notes: PREOPERATIVE DIAGNOSIS: Decreased visual acuity right eye secondary to cataract POSTOPERATIVE DIAGNOSIS: Same PROCEDURE: Right cataract extraction with intraocular lens insertion SURGEON: Deshawn Horn M.D. ANESTHESIA: Topical/MAC ESTIMATED BLOOD LOSS: None COMPLICATIONS: None After obtaining informed consent, the patient was brought to the operating room suite and placed in the supine position. After adequate sedation per anesthesia, topical drops of Tetracaine were given to the right eye. The eye was then prepped and draped in the usual sterile fashion. The operating room microscope was then positioned over the operative eye and a lid speculum placed. A paracentesis was created. Viscoelastic was then instilled into the anterior chamber. A three plane incision was then created temporally, utilizing a 2.85 mm keratome. Capsulotomy forceps were then utilized to create a circular tear capsulotomy. Hydrodissection and hydrodelineation were carried out until adequate mobilization of the nucleus occurred. Phacoemulsification was then utilized to remove the dense central nu cleus followed by removal of the cortical material utilizing the automated aspiration irrigation unit. Viscoelastic was instilled into the posterior capsular bag followed by placement of a posterior chamber intraocular lens without difficulty. The residual Viscoelastic was then removed utilizing the automated IA machine. The wound was checked and found to be watertight. The patient tolerated the procedure well and the lid speculum was removed. Intracameral injection of Vigamox 0.1 mL followed by a subtenon injection of Kenalog-40 0.2 mL were administered. The patient will be seen in the a.m.
--- NOTE | 2024-09-16 07:33 | MHC.SHP ---
Pre-Procedural Eval Section A - 24 Hr Update-Section A only Date of Service: 09/16/24 The patient is an INPATIENT: No Changes since office visit: No Cold of Flu in the past 2 weeks, No New Medical Problems, No Changes in Medication and No Patient answered all questions The patient has been examined within 24 hours of the surgical procedure. The History & Physical has been completed within 30 days and I have reviewed it.: Yes Section B - Complete if H&P > 30 days Chief Complaint: Age-related nuclear cataract, right eye Allergies: Allergies Allergy/AdvReac Type Severity Reaction Status Date / Time No Known Allergies Allergy Verified 09/02/24 06:22 Plan Diagnosis/Plan: Unchanged I have reviewed the history and physical and performed a pertinent physical examination on my patient. No changes have occurred unless specified. Time Spent With Patient Time: Total time managing care of this patient today ____ minutes.
[2024-09-16 08:00] VITALS: BP 149/50; PULSE 74; RESP 16; TEMP 36.5; O2SAT 100
== END 2024-09-16 08:04 | disposition home or self-care (01) ==
PROVIDERS: PCP Internal Medicine; Visit Provider Ophthalmology
PROC: (CPT 66985; principal; 2024-09-16 07:30)
DX: H25.11 Age-related nuclear cataract, right eye (principal); H52.4 Presbyopia; H35.3112 Nonexudative age-related macular degeneration, right eye, intermediate dry stage; H18.413 Arcus senilis, bilateral; I10 Essential (primary) hypertension; I25.10 Atherosclerotic heart disease of native coronary artery without angina pectoris; E78.00 Pure hypercholesterolemia, unspecified; J44.9 Chronic obstructive pulmonary disease, unspecified; M81.0 Age-related osteoporosis without current pathological fracture; Z79.82 Long term (current) use of aspirin; Z79.899 Other long term (current) drug therapy; Z96.643 Presence of artificial hip joint, bilateral; Z96.652 Presence of left artificial knee joint; Z98.890 Other specified postprocedural states
CPT/HCPCS: 66984; J2250; J3301; V2630

== ENCOUNTER 2024-10-17 08:16 | Outpatient (AMB) | payer MEDICARE, SELFPAY ==
--- NOTE | 2024-10-17 08:19 | MHC.PC.OV ---
Vital Signs 10/17/24 08:20 Height 5 ft 4 in Weight 132 lb BMI 22.7 BP 136/68 Blood Pressure Location Lt brachial Position Sitting Pulse 73 Pulse Source Pulse Oximeter Pulse Oximetry (%) 97 Oxygen Delivery Method Room Air Intake Visit Reasons: Lower GI issues/ Referral to GI Allergies No Known Allergies Allergy (Verified 10/17/24 08:33) Medication List - Last Reconciled 10/17/24 by ARETHA Mar amlodipine 10 mg PO DAILY aspirin 81 mg PO DAILY atorvastatin 80 mg PO DAILY 90 days blood pressure monitor (Blood Pressure Kit) As directed calcium carbonate-vitamin D3 600 mg-5 mcg (200 unit) (Calcium 600 + D(3)) 1 cap PO BID cholecalciferol (vitamin D3) 2,000 units PO DAILY lisinopril-hydrochlorothiazide 10-12.5 mg 1 tab PO BID mecobalamin (vitamin B12) 1,000 mcg PO DAILY nitroglycerin (Nitrostat) 0.4 mg sublingual Q5M PRN vitamins A,C,P-inij-vrlhpg 2,148 mcg-113 mg-45 mg-17.4mg (PreserVision AREDS) 1 tab PO BID Tobacco use date assessed: 08/20/24 Fall risk assessment: No Falls in past year Last assessed Fall Risk: 10/17/24 Dental Screening Dental Screen Date: 07/10/24 HPI Lower GI issues/ Referral to GI HPI Details The patient is an 79-year-old female presenting with recurrent episodes of loose stools with mucus. The symptoms began approximately a month and a half ago, characterized by a sudden urge to defecate and passage of soft stools containing mucus. The patient initially adjusted her diet by consuming dry toast and tea, which temporarily alleviated the symptoms. However, after resuming a normal diet, the symptoms recurred intermittently. The stools have been described as light brown to coppery, with varying consistency. The patient experiences a pressure/discomforting sensation in the lower abdomen relieved by bowel movements. There have been no reports of abdominal pain, blood in the stool, fevers, or chills. The possibility of lactose intolerance has been considered, although the patient has no known history of it. The patient is concerned about the recurring nature of her symptoms and seeks further evaluation. [facility] Medical History (Updated 10/17/24 @ 09:13 by ARETHA Mar) PONV (postoperative nausea and vomiting) Macular degeneration Numbness of left hand Angina pectoris COPD (chronic obstructive pulmonary disease) Overweight (BMI 25.0-29.9) Osteoarthritis of left knee Osteoporosis Hypercholesterolemia Coronary artery disease Hypertension Surgical History History of carpal tunnel release of both wrists History of laparoscopic cholecystectomy Hx of tonsillectomy History of bilateral hip replacements Family History Father Pancreatic cancer Mother CHF (congestive heart failure) Brother No problems noted. Daughter No problems noted. Daughter No problems noted. Social History Housing: House Are you a primary career coach to a significant other at home: No Do you presently have visiting nurse or other home services: No Alcohol intake: current Alcohol intake frequency: former alcohol drinker Patient Tobacco Use Status: Never used Tobacco Tobacco use type: Cigarette e-Cigarette/Vaping Use: Never Used Second Hand Smoke Exposure: No Advance Directives Date on File: 07/10/13 service: No Current occupational status: retired Current occupational exposures/hazards: No Cognitive needs: No Hearing needs: No Vision needs: Yes (reading glasses) Questionnaire PHQ-9 Over the last 2 weeks, how often have you been bothered by any of the following problems? 1. Little interest or pleasure in doing things: not at all 2. Feeling down, depressed, or hopeless: not at all 3. Trouble falling or staying asleep, or sleeping too much: not at all 4. Feeling tired or having little energy: not at all 5. Poor appetite or overeating: not at all 6. Feeling bad about yourself - or that you are a failure or have let yourself or your family down: not at all 7. Trouble concentrating on things, such as reading the newspaper or watching television: not at all 8. Moving or speaking so slowly that other people could have noticed. Or the opposite - being so fidgety or restless that you have been moving around a lot more than usual: not at all 9. Thoughts that you would be better off or of hurting yourself in some way: not at all Total score: 0 Depression Screening Interpretation: Negative Depression Screening Done: Yes Source: Developed by Drs. Jarrett Horton, Barrera Murray and colleagues, with an educational maxwell from [employer]. Thrive Questionnaire Date Thrive assessed: 07/10/24 I am a: Patient What is your living situation today?: I have a steady place to live Within the past 12 months, did the food you bought not last and you didn't have the money to get more?: Never true Within the past 12 months, did you worry whether your food would run out before you got money to buy more?: Never true Do you have trouble paying for medicines?: No Do you have trouble getting transportation to medical appointments?: No Do you have trouble paying your heating and electricity bill?: No Do you have trouble taking care of your child, family member or friend?: No Do you have trouble with day-to-day activities such as bathing, preparing meals, shopping, managing finances, etc.?: No Are you currently unemployed and looking for a job?: No Are you interested in more education?: No Please select the resources that you would like help with: None Currently or been in a relationship where the following occur: No concerns reported THRIVE Score: 0 AUDIT C Alcohol Use Questionnaire (AUDIT-C) 1. How often do you have a drink containing alcohol?: Never 3. How often do you have six or more drinks on one occasion?: Never Total Score: 0 CHITO-7 AMB Questionnaire CHITO-7 Date CHITO - 7 assessed: 07/10/24 Feeling nervous, anxious, or on edge: 0 = Not at all Not being able to stop or control worryin = Not at all Worrying too much about different things: 0 = Not at all Trouble relaxin = Not at all Being so restless that it is hard to sit still: 0 = Not at all Becoming easily annoyed or irritable: 0 = Not at all Feeling afraid as if something awful might happen: 0 = Not at all Total CHITO-7 score (0-4 normal; 5-9 mild; 10-14 moderate; 15-21 severe): 0 Source: Developed by Tiana Mattson Kurt Kroenke and colleagues, with an educational maxwell from [employer]. Review of Systems Const Details: - Gastrointestinal: Reports recurrent diarrhea with mucus, discomfort in lower abdomen. Denies abdominal pain, blood in stool. - General: Denies fevers or chills. - Allergy/Immunology: Denies known food intolerances or allergies. Denies chills, Denies fever(s), Denies headache(s), Denies malaise, Denies night sweats and Denies weakness Eyes Denies loss of vision ENT Denies vertigo, Denies dizziness, Denies headache(s) and Denies sore throat Card Denies chest pain, Denies leg edema and Denies lightheadedness Resp Denies cough, Denies hemoptysis and Denies wheezing GI Denies abdominal pain, Denies melena, Reports change in bowel habits, Reports tenesmus (no constant but more frequently), Denies constipation, Reports fecal incontinence (x1), Denies diarrhea, Reports loose stools and Denies vomiting Denies urinary frequency, Denies dysuria and Denies urinary urgency Neuro Denies Abnormal speech present, Denies vertigo, Denies dizziness, Denies headache(s), Denies loss of vision and Denies weakness Psych Denies anxiety, Denies depression and Denies panic attacks Hebert/Lymph Denies easy bleeding and Denies easy bruising Aller/Immun Denies wheezing Physical exam (Primary Care) Vital Signs: Last Vital Signs Pulse 73 10/17/24 08:20 BP 136/68 10/17/24 08:20 Pulse Ox 97 10/17/24 08:20 Oxygen Delivery Method Room Air 10/17/24 08:20 BMI result Body Mass Index 22.7 Tobacco/Smoking Status: Tobacco use Status Tobacco use date assessed 08/20/24 10/17/24 08:25 Patient Tobacco Use Status Never used Tobacco 10/17/24 08:25 Tobacco use type Cigarette 10/17/24 08:25 e-Cigarette/Vaping Use Never Used 10/17/24 08:25 PHQ-9: PHQ-9 Score PHQ-9: Total score 0 10/17/24 08:25 Depression Screening Interpretation: Negative Thrive Assessment: Date of Thrive Assessment Date Thrive assessed 07/10/24 10/17/24 08:25 Currently or been in a relationship where the following occur: No concerns reported Const General: healthy appearing, no acute distress, alert and awake Nutritional Appearance: well nourished Orientation/consciousness: oriented to person, oriented to place and oriented to time HENMT Ears: external ears normal General nose exam: Normal external nose present Mouth: moist mucous membranes Eyes Conjunctivae: conjunctivae normal Sclerae: sclerae normal Pupils: Equal, round and reactive pupils present Neck Neck: Yes no lymphadenopathy and Yes no JVD Thyroid: Thyroid normal Carotids: no bruits Resp Effort & Inspection: normal respiratory effort and not tachypneic Auscultation: no crackles, no rales, no rhonchi and no wheezes Cardio Rate: regular rate Rhythm: regular rhythm Heart sounds: no murmurs and normal S1 and S2 GI Palpation (GI): Soft to palpation, nontender, no hepatomegaly, no splenomegaly and Other GI palpation findings present (pressure in lower abdomen) Auscultation: normal bowel sounds Skin General skin exam: no rashes or lesions noted and dry skin Neuro General: oriented to person, oriented to place and oriented to time Cranial nerves: Yes Equal, round and reactive pupils present Speech: No Abnormal speech present Gait exam (Neuro): Normal gait present Psych Mental Status: mental status grossly normal Speech and movement: Normal speech and movement present Affect: normal affect Attitude: cooperative Thought process: Normal thought process present Coding Level of Care Code Est Pt Level 3 (78895) Diagnoses Candelario-colored stools R19.5 Diarrhea, unspecified type R19.7 Diarrhea type: unspecified type Food intolerance K90.49 Pressure of right suprapubic region R10.31 Mucus in stool R19.5 Time Spent (min) 31 Assessment & Plan Assessment & Plan (1) Candelario-colored stools: Code(s): R19.5 - Other fecal abnormalities Category: Medical (2) Frequent loose stools: Code(s): R19.7 - Diarrhea, unspecified Category: Medical Qualifiers: Diarrhea type: unspecified type Qualified Code(s): R19.7 - Diarrhea, unspecified (3) Food intolerance: Code(s): K90.49 - Malabsorption due to intolerance, not elsewhere classified Category: Medical (4) Pressure of right suprapubic region: Code(s): R10.31 - Right lower quadrant pain Category: Medical (5) Mucus in stool: Code(s): R19.5 - Other fecal abnormalities Category: Medical Plan I will initiate diagnostic testing, including blood work, an abdominal ultrasound, and a GI referral. A stool sample will be collected for a GI panel, and a urine sample will be analyzed. The patient will continue a diet of dry toast and tea to manage symptoms and will be advised to stay hydrated with electrolyte-rich fluids. Follow-up with a youth career specialist will be arranged for further evaluation. Patient was informed and verbally consented to the use of an ambient scribe for clinic note documentation during this visit. Orders: Orders Comprehensive Met. Panel Today R10.31 - Right lower quadrant pain, R19.5 - Other fecal abnormalities UA CC w/rflx Micro + Cult Today R10.31 - Right lower quadrant pain, R19.5 - Other fecal abnormalities CRP High Sensitivity Today R10.31 - Right lower quadrant pain, R19.5 - Other fecal abnormalities Erythrocyte Sedimentation Rate Today R10.31 - Right lower quadrant pain, R19.5 - Other fecal abnormalities US abdomen limited Today R10.31 - Right lower quadrant pain Lipase Today K90.49 - Malabsorption due to intolerance, not elsewhere classified, R19.5 - Other fecal abnormalities, R19.7 - Diarrhea, unspecified Amylase Today K90.49 - Malabsorption due to intolerance, not elsewhere classified, R19.5 - Other fecal abnormalities, R19.7 - Diarrhea, unspecified Complete Blood Count Auto Diff Today R10.31 - Right lower quadrant pain, R19.5 - Other fecal abnormalities GI Panel Today K90.49 - Malabsorption due to intolerance, not elsewhere classified, R19.5 - Other fecal abnormalities, R19.7 - Diarrhea, unspecified Referrals Gastroenterology Referral K90.49 - Malabsorption due to intolerance, not elsewhere classified, R10.31 - Right lower quadrant pain, R19.5 - Other fecal abnormalities
[2024-10-17 08:20] VITALS: BP 136/68; PULSE 73; O2SAT 97; BMI 22.7
--- OUTSIDE RECORDS SUMMARY | 2024-10-17 08:22 | XMS_ITS | Patient Health Record ---
Author Organization [facility] Address [address] [address] Care Team Providers Care Drum Worker Name Role Phone May Santana Primary Care Provider Haritha Coker Unavailable [phone] Allergies No Known Allergies Results Component Value Reference Range Notes HEMOGLOBIN A1C (GLYCOHEMOGLO BIN) Reviewed date:10/16/2024 11:00:07 AM Interpretation: Performing Lab: Notes/Report: HEMOGLOBIN A1C % (HH) 6.1 Reason For Referral No Information Medications Medication SIG (Take, Route, Frequency, Duration) Notes Start Date End Date Status PreserVision AREDS - as directed Orally Active amLODIPine Besylate 10 MG TAKE 1 TABLET BY MOUTH EVERY DAY Oral for 90 Active Stool Softener Unkno wn Aspirin 81 MG 1 tablet Orally Once a day for 30 day(s) Active Calcium 500 + D Unkn own Azithromycin 250 MG Oral for 5 Not-Taking Amoxicillin-Pot Clavulanate 875-125 MG Oral for 7 Active hydroCHLOROthiazide 25 MG 1 tablet in th e morning Orally Once a day Active Vitamin D3 50 MCG (1999) TAKE 1 TABLE T BY MOUTH DAILY Oral for 90 Active Atorvastatin Calcium 40 MG Oral for 90 Active Cephalexin 500 MG Orally Un known Vitamin B12 1000 MCG 1 tablet Orally Once a day for 30 day(s) Active Furosemide 20 MG Oral for 30 N ot-Taking Nitrostat 0.4 MG as directed Sublingual Active Pravastatin Sodium 40 MG Oral for 90 Not-Taking Lisinopril 10 MG 1 tablet Orally Once a day Active Isosorbide Mononitrate ER 30 MG Oral for 90 Not-Taking Celecoxib 200 MG Oral for 30 N ot-Taking Immunizations Vaccine Route Administration Date Status Comme [...] Problem Status W/U Status Risk Notes Problem Acquired hammer toe of lesser toe of right foot ([id number]) Hammer toe of right foot (M20.41) Active confirmed Problem [id number] Hammer toe of left foot (M20.42) Active confirmed Problem Type II diabetes mellitus without complication (043368765) Type 2 diabetes mellitus without complication (E11.9) Active confirmed Vital Signs Blood pressure diastolic 70 mm Hg 10/16/2024 Height 5 ft 4 in in 10/16/2024 Blood pressure systolic 135 mm Hg 10/16/2024 Weight 135 lbs 10/16/2024 BMI 23.17 kg/m2 10/16/2024 Encounters Encounter Location Date Provider Diagnosis [facility] [place] [address] [place] [address] 10/16/2024 Haritha Joseph Pain in right toe(s) M79.674 ; Onychomycosis B35.1 ; Pain in left toe(s) M79.675 and Type 2 diabetes mellitus without complication E11.9 Assessments Encounter Date Diagnosis (ICD Code) Assessment Notes Treatment Notes Treatment Clinical Notes Section Notes 10/16/2024 Pain in right toe(s) (ICD-10 - M79.674) 10/16/2024 Onychomycosis (ICD-10 - B35.1) 10/16/2024 Pain in left toe(s) (ICD-10 - M79.675) 10/16/2024 Type 2 diabetes mellitus without complication (ICD-10 - E11.9) Plan Of Treatment Next Appt Details Provider Name:Haritha Greene Nandini greene, 01/15/2025 10:00:00 AM, [address] [facility], [place], [address], Insurance Providers Payer Name Payer Address Payer Phone Subscriber Number Group Number Insured Name Patient Relationship to Insured Coverage Start Date Coverage End Date Medicare National Govt [employer] [address] [place] [address] [id number] Verona Guthrie Self - patient is the insured [employer] [address] [place] [address] [id number] Verona Guthrie Self - patient is the insured Medical (General) History Medical History History ICD Code Angina Arthritis Back,Hip,and Knee pain Broken bones Cholesterol Gall bladder problems High blood pressure Macular degeneration Chicken pox Joint implants/screws Measles Mumps Warts pre-diabetic Surgical History Surgery Date(Month/Year) 2 hip replacements tonsillectomy 1948 carpal tunnel surgery both wrists and cy st removal dilatation and curettage x 2 cholecystectomy 1999 knee replacement 2020 cataract surgeries 09/13
== END 2024-10-17 09:43 | disposition home or self-care (01) ==
LOC: HO.HMCH 08:17
PROVIDERS: PCP Internal Medicine
DX: R19.5 Other fecal abnormalities (principal); R19.7 Diarrhea, unspecified; K90.49 Malabsorption due to intolerance, not elsewhere classified; R10.31 Right lower quadrant pain

== ENCOUNTER 2024-10-17 08:16 | Outpatient (REF) | payer MEDICARE, SELFPAY ==
[2024-10-17 09:24] LABS: MANUAL DIFF FLAG NO
[2024-10-17 09:37] LABS: Basophils Absolute Auto 0.1 X10*3/uL (0.0-0.2); Basophils Percent Auto 1.2 % (0-2); Eosinophils Absolute Auto 0.2 X10*3/uL (0.0-0.4); Eosinophils Percent Auto 2.8 % (0-4); Hematocrit 38.8 % (37.0-47.0); Hemoglobin 12.8 g/dl (12.0-16.0); Imm Gran Abs Auto 0.02 X10*3/uL (0.00-0.03); Imm Gran Pct Auto 0.2 % (0.0-0.4); Lymphocytes Absolute Auto 1.8 X10*3/uL (1.2-4.9); Lymphocytes Percent Auto 21.3 % (20-40); Mean Corpuscular Hemoglobin 30.3 pg (27.0-33.0); Mean Corpuscular Volume 91.7 fL (80.0-98.0); Mean Platelet Volume 9.5 fL (9.4-12.3); Monocytes Absolute Auto 1.3 X10*3/uL (0.1-1.2); Monocytes Percent Auto 14.5 % (2-11); Neutrophils Absolute Auto 5.2 x10*3/uL (2.0-8.3); Platelet Count 209 X10*3/uL (160-400); Red Blood Count 4.23 X10*6/uL (4.20-5.50); Red Cell Distribution Width 13.7 % (11.0-16.0); White Blood Count 8.6 X10*3/uL (4.8-10.8)
[2024-10-17 10:08] LABS: Alanine Aminotransferase 26 U/L (0-31); Albumin Level 4.2 g/dL (3.5-5.0); Alkaline Phosphatase 57 U/L (39-117); Amylase 52 U/L (28-100); Anion Gap 12 (12-20); Aspartate Amino Transferase 35 U/L (5-31); Bilirubin Total 0.6 mg/dL (0.0-1.0); Blood Urea Nitrogen 20 mg/dL (9-16); Calcium 9.9 mg/dL (8.4-10.2); Carbon Dioxide 30 mmol/L (22-29); Chloride 103 mmol/L (96-108); Estimated Glomerular Filt Rate > 60; Glucose Random 90 mg/dL (60-115); Lipase 15 U/L (8-78); Potassium 3.5 mmol/L (3.3-5.1); Sodium 141 mmol/L (135-145); Total Protein 6.8 g/dL (6.5-8.0)
[2024-10-17 10:14] LABS: Erythrocyte Sedimentation Rate 7 MM/HR (0-20)
[2024-10-17 10:57] LABS: Appearance Urine Clear; Color Urine Yellow; Glucose Urine UA Negative (Negative); Leukocyte Esterase Urine Trace (Negative); Nitrite Urine Negative (Negative); PH 6.5 (5.0-9.0); Specific Gravity - Urine 1.015 (1.005-1.025); UMIC TRIGGER UACC YES; Urine Blood Negative (Negative); Urine Ketones Negative (Negative); Urine Protein Negative (Neg-Trace)
[2024-10-17 11:03] LABS: Bacteria Urine None Seen (None Seen); Hyaline Casts Urine 0-2 /LPF (0-2); RBC Urine 0-2 /HPF (0-2); Squamous Epithelial Cell Urine 0-2 /HPF (0-2); WBC Urine 0-5 /HPF (0-5)
[2024-10-18 04:59] LABS: CRP High Sensitivity 1.1 mg/L
[2024-10-18 14:53] LABS: Adenovirus F 40/41 Not Detected (Not Detect.); Astrovirus Not Detected (Not Detect.); Campylobacter Not Detected (Not Detect.); Cryptosporidium Not Detected (Not Detect.); Cyclospora cayetanensis Not Detected (Not Detect.); E. coli EAEC Not Detected (Not Detect.); E. coli EPEC Not Detected (Not Detect.); E. coli ETEC Not Detected (Not Detect.); E. coli STEC Not Detected (Not Detect.); Entamoeba histolytica Not Detected (Not Detect.); Giardia lamblia Not Detected (Not Detect.); Norovirus GI/GII Not Detected (Not Detect.); Plesiomonas shigelloides Not Detected (Not Detect.); Rotavirus A Not Detected (Not Detect.); Salmonella Not Detected (Not Detect.); Sapovirus Not Detected (Not Detect.); Shigella sp./EIEC Not Detected (Not Detect.); Vibrio Not Detected (Not Detect.); Vibrio Cholerae Not Detected (Not Detect.); Yersinia enterocolitica Not Detected (Not Detect.)
== END 2024-10-17 08:17 | disposition home or self-care (01) ==
LOC: HO.LAB 08:16
DX: R19.5 Other fecal abnormalities (principal); R19.7 Diarrhea, unspecified; K90.49 Malabsorption due to intolerance, not elsewhere classified; R10.31 Right lower quadrant pain
CPT/HCPCS: 36415; 80053; 81001; 82150; 83690; 85025; 85652; 86141; 87507; 96127; 99212

== ENCOUNTER 2024-12-02 16:00 | Outpatient (AMB) | payer MEDICARE, SELFPAY ==
--- NOTE | 2024-12-02 16:15 | A.OFFPC_ITS ---
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 Accompanied by: Self / Same As Patient Allergies No Known Allergies Allergy (Verified 12/02/24 16:20) Tobacco use date assessed: 08/20/24 Fall risk assessment: No Falls in past year Last assessed Fall Risk: 12/02/24 Dental Screening Dental Screen Date: 07/10/24 [facility] Medical History (Updated 10/17/24 @ 09:13 by ARETHA Mar) PONV (postoperative nausea and vomiting) Macular degeneration Numbness of left hand Angina pectoris COPD (chronic obstructive pulmonary disease) Overweight (BMI 25.0-29.9) Osteoarthritis of left knee Osteoporosis Hypercholesterolemia Coronary artery disease Hypertension Surgical History History of carpal tunnel release of both wrists History of laparoscopic cholecystectomy Hx of tonsillectomy History of bilateral hip replacements Family History Father Pancreatic cancer Mother CHF (congestive heart failure) Brother No problems noted. Daughter No problems noted. Daughter No problems noted. Social History Housing: House Are you a primary child care provider to a significant other at home: No Do you presently have visiting nurse or other home services: No Alcohol intake: current Alcohol intake frequency: former alcohol drinker Patient Tobacco Use Status: Never used Tobacco Tobacco use type: Cigarette e-Cigarette/Vaping Use: Never Used Second Hand Smoke Exposure: No Advance Directives Date on File: 07/10/13 service: No Current occupational status: retired Current occupational exposures/hazards: No Cognitive needs: No Hearing needs: No Vision needs: Yes (reading glasses) Questionnaire Thrive Questionnaire Date Thrive assessed: 10/17/24 I am a: Patient What is your living situation today?: I have a steady place to live Within the past 12 months, did the food you bought not last and you didn't have the money to get more?: Never true Within the past 12 months, did you worry whether your food would run out before you got money to buy more?: Never true Do you have trouble paying for medicines?: No Do you have trouble getting transportation to medical appointments?: No Do you have trouble paying your heating and electricity bill?: No Do you have trouble taking care of your child, family member or friend?: No Do you have trouble with day-to-day activities such as bathing, preparing meals, shopping, managing finances, etc.?: No Are you currently unemployed and looking for a job?: No Are you interested in more education?: No Please select the resources that you would like help with: None Currently or been in a relationship where the following occur: No concerns reported THRIVE Score: 0 CHITO-7 AMB Questionnaire CHITO-7 Date CHITO - 7 assessed: 07/10/24 Source: Developed by Drs. Jarrett Horton, Tiana Allen, Barrera Dewey and colleagues, with an educational maxwell from [employer]. Physical exam (Primary Care) Vital Signs: Last Vital Signs Pulse 76 12/02/24 16:16 BP 128/54 L 12/02/24 16:16 Pulse Ox 94 12/02/24 16:16 Oxygen Delivery Method Room Air 12/02/24 16:16 BMI result Body Mass Index 23.4 Tobacco/Smoking Status: Tobacco use Status Tobacco use date assessed 08/20/24 12/02/24 16:15 Patient Tobacco Use Status Never used Tobacco 12/02/24 16:15 Tobacco use type Cigarette 12/02/24 16:15 e-Cigarette/Vaping Use Never Used 12/02/24 16:15 Thrive Assessment: Date of Thrive Assessment Date Thrive assessed 10/17/24 12/02/24 16:15 Currently or been in a relationship where the following occur: No concerns reported Const General: alert; No acute distress Eyes Conjunctivae: conjunctivae normal Resp Auscultation: clear to auscultation bilaterally Cardio Rate: regular rate Rhythm: regular rhythm GI Inspection: Yes normal to inspection Extrem General: Yes normal to inspection and No edema Results AMB Hemoglobin A1c AMB Hemoglobin A1c 5.8 % Last Edit by BEBE Barclay on 12/02/24 16:55 Results Reviewed Results Reviewed: Laboratory Last Values Hgb A1c (Clinic) 5.8 % (4.0-6.0) 12/02/24 16:55 Coding Level of Care Code Est Pt Level 4 (42591) Complex EM visit Add On G2211 Diagnoses Coronary artery disease involving [place] coronary artery of [place] heart without angina pectoris I25.10 Associated angina: without angina Coronary Disease-Associated Artery/Lesion type: [place] artery [place] vs. transplanted heart: [place] heart Essential hypertension I10 Hypertension type: essential hypertension Hypercholesterolemia E78.00 Impaired fasting blood sugar R73.01 Assessment & Plan Assessment & Plan (1) Coronary artery disease: Comment: September 2021 coronary CTA no significant coronary artery disease moderate stenosis LAD 50% Code(s): I25.10 - Atherosclerotic heart disease of [place] coronary artery without angina pectoris Category: Medical Qualifiers: Associated angina: without angina Coronary Disease-Associated Artery/Lesion type: [place] artery [place] vs. transplanted heart: [place] heart Qualified Code(s): I25.10 - Atherosclerotic heart disease of [place] coronary artery without angina pectoris Plan: Control the cholesterol, weight, blood pressure, on aspirin (2) Hypertension: Code(s): I10 - Essential (primary) hypertension Category: Medical Qualifiers: Hypertension type: essential hypertension Qualified Code(s): I10 - Essential (primary) hypertension Plan: Continue with blood pressure medication. Decrease salt intake and exercise takes amlodipine 10 mg once a day lisinopril hydrochlorothiazide 10/12.5 mg twice a day (3) Hypercholesterolemia: Code(s): E78.00 - Pure hypercholesterolemia, unspecified Category: Medical Plan: Avoid fried foods, chicken skin, eggs, butter margarine, pastries and meat. Be it pork or beef they have a lot of cholesterol LDL goal of less than 70 and triglyceride of less than 150 on atorvastatin 80 mg once a day (4) Impaired fasting blood sugar: Code(s): R73.01 - Impaired fasting glucose Category: Medical Plan: Decrease the amount of carbohydrate intake, pasta, bread, rice and potatoes are all sugar and that is aside from all the sweet stuff, remember that fruits are good but they are Sweet also. Plan History of Present Illness The patient is an 79-year-old female presenting for a follow-up visit after her back surgery and to discuss her ongoing health management. She has a history of coronary artery disease, hypertension, and hypercholesterolemia. Her cholesterol was last tested in June, showing an LDL of 71 mg/dL and triglycerides of 20 mg/dL. She is currently on atorvastatin with a goal to maintain her LDL below 70 mg/dL. The patient reports episodes of diarrhea, which she manages by adjusting her diet to include tea and toast, and plans to see a mold filling operator in January. She underwent an abdominal ultrasound in July, which was normal, and her blood work in September showed normal electrolytes and liver function. Her potassium levels are in the low normal range due to hydrochlorothiazide use, and she is advised to consume potassium-rich foods. The patient has osteopenia, confirmed by a bone density test in June, with no significant changes noted. She remains active, working part-time and walking her dog daily. Health Maintenance - Vaccinations: Tetanus, RSV, pneumonia, and shingles are up to date. - Bone density test in June confirmed osteopenia with no significant changes. Social History - Employment: Works part-time. - Exercise: Walks the dog daily for four hours. Review of Systems - Gastrointestinal: Reports episodes of diarrhea, managed with dietary changes. - Musculoskeletal: Denies any new bone pain or fractures. Physical Exam Results - Labs: Cholesterol tested in June with LDL 71 mg/dL, triglycerides 20 mg/dL. - Imaging: Abdominal ultrasound in July showed normal results. - Labs: Blood work in September showed normal electrolytes and liver function. - Bone Density: Test in June confirmed osteopenia with no significant changes. Plan The patient will continue her current regimen of atorvastatin to maintain her LDL cholesterol below 70 mg/dL. She is advised to consume potassium-rich foods to address the low normal potassium levels due to hydrochlorothiazide use. A follow-up with a mold filling operator is scheduled for January to evaluate her episodes of diarrhea. The patient is encouraged to maintain her current level of physical activity and dietary management to support her overall health and manage osteopenia. Patient was informed and verbally consented to the use of an ambient scribe for clinic note documentation during this visit. Discussion Notes I discussed with the patient the importance of maintaining her LDL cholesterol below 70 mg/dL and advised her to continue her atorvastatin regimen. We talked about the need to consume potassium-rich foods due to her low normal potassium levels from hydrochlorothiazide use. I recommended a follow-up with a mold filling operator in January to further investigate her episodes of diarrhea. We also reviewed her current physical activity and dietary habits, emphasizing their role in managing her osteopenia and overall health. Patient Instructions - Continue taking atorvastatin as prescribed to maintain LDL cholesterol levels. - Eat potassium-rich foods such as bananas, spinach, and avocados. - Follow up with a mold filling operator in January for diarrhea evaluation. - Maintain current physical activity and dietary habits to support bone health. Orders: Orders AMB Hemoglobin A1c Today R73.02 - Impaired glucose tolerance (oral)
[2024-12-02 16:16] VITALS: BP 128/54; PULSE 76; O2SAT 94; BMI 23.4
--- OUTSIDE RECORDS SUMMARY | 2024-12-02 16:56 | XMS_ITS | Patient Health Record ---
[facility] Address [address] [place] [address] Care Team Providers Care Spring Winder Name Role Phone May Santana Primary Care Provider Haritha Coker Unavailable [phone] Allergies No Known Allergies Results Component Value Reference Range Notes HEMOGLOBIN A1C (GLYCOHEMOGLO BIN) Reviewed date:10/16/2024 11:00:07 AM Interpretation: Performing Lab: Notes/Report: HEMOGLOBIN A1C % (HH) 6.1 Reason For Referral No Information Medications Medication SIG (Take, Route, Frequency, Duration) Notes Start Date End Date Status PreserVision AREDS - as directed Orally Active amLODIPine Besylate 10 MG TAKE 1 TABLET BY MOUTH EVERY DAY Oral; Duration: 90 Active Stool Softener Unkno wn Aspirin 81 MG 1 tablet Orally Once a day; Duration: 30 day(s) Active Calcium 500 + D Unkn own Azithromycin 250 MG Oral; Duration: 5 Not-Taking Amoxicillin-Pot Clavulanate 875-125 MG Oral; Duration: 7 Active hydroCHLOROthiazide 25 MG 1 tablet in e morning Orally Once a day Active Vitamin D3 50 MCG (1999) TAKE 1 TABLE T BY MOUTH DAILY Oral; Duration: 90 Active Atorvastatin Calcium 40 MG Oral; Duration: 90 Active Cephalexin 500 MG Orally Un known Vitamin B12 1000 MCG 1 tablet Orally Once a day; Duration: 30 day(s) Active Furosemide 20 MG Oral; Duration: 30 Not-Taking Nitrostat 0.4 MG as directed Sublingual Active Pravastatin Sodium 40 MG Oral; Duration: 90 Not-Taking Lisinopril 10 MG 1 tablet Orally Once a day Active Isosorbide Mononitrate ER 30 MG Oral; Duration: 90 Not-Takin g Celecoxib 200 MG Oral; Duration: 30 Not-Taking Immunizations Vaccine Route Administration Date Status [...] Risk Notes Problem Acquired hammer toe of right foot ([id number] 5) Hammer toe of right foot (M20.41) Active confirmed Problem Acquired hammer toe of left foot ([id number] 3) Hammer toe of left foot (M20.42) Active confirmed Problem Type II diabetes mellitus without complication (558183917) Type 2 diabetes mellitus without complication (E11.9) Active confirmed Vital Signs Blood pressure diastolic 70 mm Hg 10/16/2024 Height 5 ft 4 in in 10/16/2024 Blood pressure systolic 135 mm Hg 10/16/2024 Weight 135 lbs 10/16/2024 BMI 23.17 kg/m2 10/16/2024 Encounters Encounter Location Date Provider Diagnosis [facility] [address] [place] [address] 10/16/2024 Haritha Joseph Pain in right toe(s) [...] Greene Nandini greene, 01/15/2025 10:00:00 AM, [address] [place], [address], Insurance Providers Payer Name Payer Address Payer Phone Subscriber Number Group Number Insured Name Patient Relationship to Insured Coverage Start Date Coverage End Date Medicare National Govt [facility] [address] [place] [address] [id number] Verona Guthrie Self - patient is the insured [email or web address] [address] [place] [address] [id number] Verona Guthrie Self - patient is the [...]
== END 2024-12-02 16:56 | disposition home or self-care (01) ==
LOC: HO.HMCH 16:01
PROVIDERS: PCP Internal Medicine; Visit Provider Internal Medicine
DX: I25.10 Atherosclerotic heart disease of native coronary artery without angina pectoris (principal); I10 Essential (primary) hypertension; E78.00 Pure hypercholesterolemia, unspecified; R73.01 Impaired fasting glucose; R73.02 Impaired glucose tolerance (oral)

== ENCOUNTER → 2024-12-02 16:00 | Outpatient (BNVA) | payer MEDICARE, SELFPAY | PROVIDERS: PCP Internal Medicine; Visit Provider Internal Medicine | DX: I25.10 Atherosclerotic heart disease of native coronary artery without angina pectoris (principal); I10 Essential (primary) hypertension; E78.00 Pure hypercholesterolemia, unspecified; R73.01 Impaired fasting glucose | CPT/HCPCS: 83036; 99212 ==